=== PATIENT | female | born 1985 | race Caucasian/White ===

== ENCOUNTER 2024-10-27 20:31 | Emergency (ER) | payer OTHER, SELFPAY ==
[2024-10-27 20:35] VITALS: BP 130/70; PULSE 97; TEMP 36.6; O2SAT 98; BMI 34.5
--- NOTE | 2024-10-27 20:52 | CT_ITS ---
[address] [address] Patient Name: MAKSIM MARY MRN: [id number] date: 1985 Sex: F Assigned Patient Location: ER Current Patient Location: ER Accession/Order Number: [id number] Exam Date: 10/27/2024 21:50 Report Date: 10/27/2024 23:00 At the request of: ZENON PAYNE Procedure: CT abdomen pelvis wo con EXAMINATION:CT abdomen pelvis wo con INDICATION:left sided abd pain, left flank pain COMPARISON:None TECHNIQUE:Multiple thin section transaxial slices were acquired through the abdomen and pelvis without intravenous contrast. Coronal and sagittal reconstructed images were reviewed. Oral contrastWas not administered. FINDINGS: LOWER CHEST: The lower chest is unremarkable. LIVER: There is diffuse hepatic steatosis. GALLBLADDER AND BILIARY SYSTEM: No obvious ductal dilation. There is cholelithiasis. SPLEEN: The spleen is unremarkable. PANCREAS: The pancreas is unremarkable. ADRENAL GLANDS: The adrenal glands are unremarkable. KIDNEYS AND URETERS: There is a 2 mm sized proximal to mid left ureteral calculus. Despite the presence of this calculus, there is no hydronephrosis of the left kidney. There is no right hydronephrosis. The right ureter is within normal limits without obstructing urologic calcifications. VASCULATURE: Vascularity is unremarkable. PERITONEUM/RETROPERITONEUM: Peritoneum/retroperitoneum is unremarkable. LYMPH NODES: No suspicious lymphadenopathy. GASTROINTESTINAL TRACT: The bowel is normal in caliber.No acute inflammatory changes are present in the bowel.The appendix is visualized and is not inflamed. BLADDER: The urinary bladder is unremarkable. REPRODUCTIVE SYSTEM: The uterus is absent. BODY WALL: There is a moderate to large fat-containing ventral hernia. The hernia measures 10.2 x 5.5 cm in the anterior abdominal wall. BONES: Osseous structures are unremarkable. CT/CT abdomen pelvis wo con IMPRESSION: 1. 2 mm size calculus in the proximal to mid left ureter. Despite the presence of this calculus, there is no hydronephrosis of the left kidney. 2. Moderate to large fat-containing ventral hernia. Electronically authenticated by: SINTIA MOREJON Date: 10/27/2024 23:00
--- NOTE | 2024-10-27 20:58 | ED.GENADUL1 ---
HPI HPI - General Adult General Chief complaint: Back Pain/Injury Stated complaint: LEFT SIDE BACK PAIN, RADIATING TO ABDOMIN Time Seen by Provider: 10/27/24 20:34 Source: patient Mode of arrival: walk-in Limitations: no limitations History of Present Illness HPI narrative: Yesterday the patient suddenly developed left flank pain while sitting and eating. The pain radiates around to the left upper and left lower abdomen - upper > lower. No bowel or bladder symptoms - able to urinate without blood in urine and it does not affect the pain. Passing stool normally. She said that the pain waxes and wanes going from 10/10 about 2 hours ago to 2/10 now. She took Tums, tylenol and motrin plus used a hot pad. No nausea or vomiting. Hx of GERD but this doesn't feel anything like it. Denies any hx of kidney stones. Has a ventral hernia by hx - no repair. No fever or chills. Related Data Home Medications ?Medication ?Instructions ?Recorded ?Confirmed levothyroxine 150 mcg tablet 150 mcg PO DAILY 10/27/24 10/27/24 Previous Rx's ?Medication ?Instructions ?Recorded ciprofloxacin HCl 500 mg tablet 500 mg PO BID #10 tabs 10/27/24 (Cipro) ketorolac 10 mg tablet 10 mg PO Q8H 5 days #15 tabs 10/27/24 tamsulosin 0.4 mg capsule (Flomax) 0.4 mg PO DAILY #20 caps 10/27/24 Allergies Allergy/AdvReac Type Severity Reaction Status Date / Time amoxicillin Allergy Rash Verified 10/27/24 20:39 cefaclor (From Ceclor) Allergy Rash Verified 10/27/24 20:39 Opioid HPI Opioid Management Most Recent Opioid Data: Last Pain Scale 7 10/27/24 21:26 10/27/24 Last ED Pain Assessment 10/27/24 21:26 PFSH PFSH Social History Little interest or pleasure in doing things: not at all Feeling down, depressed, or hopeless: not at all Exam Narrative Exam Narrative: Nurses notes and vital signs reviewed and patient is not hypoxic. afebrile General: Well-appearing and in no apparent distress. Skin: Warm, dry, no pallor noted. No rash. Ears, Nose, Mouth, and Throat: Oral mucosa is moist Cardiovascular: Regular Rate and Rhythm without murmur, gallop or rub. Respiratory: No accessory muscle use or respiratory distress. Lungs are clear to auscultation, no wheezing, rales or rhonchi Back: No CVA tenderness Musculoskeletal: normal ROM GI: Abdomen is soft, non-distended. Normal bowel sounds. No masses appreciated. LUQ tenderness to palpation. No rebound, guarding, or rigidity noted. Neurological: A&O x4. No cranial nerve dysfunction observed. No truncal ataxia. Moves all extremities. Sensation intact. Psychiatric: Cooperative and interactive. Normal mood and affect. Constitutional Vital Signs, click to edit/add: Last Vital Signs Temp 97.8 F 10/27/24 20:35 Pulse 97 H 10/27/24 20:35 Resp 18 10/27/24 20:35 BP 130/70 10/27/24 20:35 Pulse Ox 98 10/27/24 20:35 O2 Del Method Room Air 10/27/24 20:35 Course Vital Signs Vital signs: Vital Signs Temperature 97.8 F 10/27/24 20:35 Pulse Rate 97 H 10/27/24 20:35 Respiratory Rate 18 10/27/24 20:35 Blood Pressure 130/70 10/27/24 20:35 Pulse Oximetry 98 10/27/24 20:35 Oxygen Delivery Method Room Air 10/27/24 20:35 Temperature 97.8 F 10/27/24 20:35 Pulse Rate 97 H 10/27/24 20:35 Respiratory Rate 18 10/27/24 20:35 Blood Pressure 130/70 10/27/24 20:35 Pulse Oximetry 98 10/27/24 20:35 Oxygen Delivery Method Room Air 10/27/24 20:35 Medical Decision Making MDM Narrative Medical decision making narrative: Labs and urine sent for testing. Pt had hysterectomy, so no need for preg test. Results -the patient found to have a 2 mm left proximal to mid ureteral stone. There is no hydronephrosis. She does have blood in her urine but no other sign of infection. However white blood cell count is slightly elevated. Kidney function is normal. She was informed of results and discharged home with prescription for oral Toradol, flomax and a prescription for ciprofloxacin with first dose of Cipro being given tonight in the ED. She will be given urological referral and instructions to return to the ED if she worsens. She was given a strainer at discharge and instructed on collection of the stone Lab Data Lab results reviewed: Yes I reviewed the patient's lab results Labs: Lab Results 10/27/24 10/27/24 Range/Units 21:00 21:20 WBC 14.4 H (4.0-11.0) 10^3/uL RBC 4.32 (4.20-5.40) 10^6/uL Hgb 13.2 (12.0-16.0) g/dL Hct 39.4 (36.0-48.0) % MCV 91.2 (81.0-99.0) fL MCH 30.6 (26.7-34.0) pg MCHC 33.5 (29.9-35.2) g/dL RDW 13.1 (11.0-15.0) % Plt Count 307 (150-450) 10^3/uL MPV 10.4 (9.5-13.5) fL Neut % (Auto) 74.2 (43.0-75.0) % Lymph % (Auto) 14.9 L (20.5-60.0) % Cheyenne % (Auto) 8.1 (1.7-12.0) % Eos % (Auto) 1.9 (0.9-7.0) % Baso % (Auto) 0.3 (0.2-2.0) % Neut # (Auto) 10.6 H (1.4-6.5) 10^3/uL Lymph # (Auto) 2.1 (1.2-3.8) 10^3/uL [place] # (Auto) 1.2 H (0.3-0.8) 10^3/uL Eos # (Auto) 0.3 (0.0-0.7) 10^3/uL Baso # (Auto) 0.1 (0.0-0.1) 10^3/uL Abs Immat Gran (auto) 0.09 H (0.00-0.03) 10^3/uL Imm/Tot Granulo (auto) 0.6 H (0.0-0.5) % Sodium 142 (136-145) mmol/L Potassium 3.5 (3.5-5.1) mmol/L Chloride 107 (98-107) mmol/L Carbon Dioxide 27.5 (21.0-32.0) mmol/L Anion Gap 11.0 BUN 11.0 (7.0-18.0) mg/dL Creatinine 0.82 (0.55-1.02) mg/dL Est GFR ( Amer) >60 (>=60 mL/min/1.73m^2) Est GFR (Non-Af Amer) >60 (>=60 mL/min/1.73m^2) BUN/Creatinine Ratio 13.4 Glucose 109 H (74-106) mg/dL Calcium 8.6 (8.5-10.1) mg/dL Total Bilirubin 0.4 (0.2-1.0) mg/dL AST 13 L (15-37) U/L ALT 29 (14-59) U/L Alkaline Phosphatase 97 (46-116) U/L Total Protein 6.7 (6.4-8.2) g/dL Albumin 3.1 L (3.4-5.0) g/dL Globulin 3.6 g/dL Albumin/Globulin Ratio 0.9 Urine Color Yellow (YELLOW) Urine Clarity Clear (CLEAR) Urine pH 6.5 (5.0-9.0) Ur Specific Hunter 1.025 (1.005-1.025) Urine Protein Trace (NEG/TRACE) mg/dL Urine Glucose (UA) Negative (NEGATIVE) mg/dL Urine Ketones Trace A (NEGATIVE) mg/dL Urine Occult Blood Large A (NEGATIVE) Urine Nitrite Negative (NEGATIVE) Urine Bilirubin Negative (NEGATIVE) Urine Urobilinogen 1.0 (0.2-1.0) EU/dL Ur Leukocyte Esterase Negative (NEGATIVE) Urine RBC >100 A (0-2) #/HPF Urine WBC 0-2 A (NONE SEEN) #/HPF Ur Squamous Epith Cells Few A (NONE/RARE) #/LPF Urine Crystals None seen (None Seen) #/HPF Urine Bacteria Small A (NONE SEEN) #/HPF Urine Casts None seen (NONE SEEN) #/LPF Urine Mucus Small A (NONE SEEN) Ur Culture Indicated? Yes Urine HCG, Qual Negative (NEGATIVE) Imaging Data CT scan - abdomen: Radiologist's impression: ITS Impressions Abdomen/Pelvis CT 10/27/24 20:52 IMPRESSION: 1. 2 mm size calculus in the proximal to mid left ureter. Despite the presence of this calculus, there is no hydronephrosis of the left kidney. 2. Moderate to large fat-containing ventral hernia. Electronically authenticated by: SINTIA MOREJON Date: 10/27/2024 23:00 Discharge Plan Discharge Chief Complaint: Back Pain/Injury Clinical Impression: Left ureteral stone, Hematuria, Leukocytosis Patient Disposition: Home, Self-Care Time of Disposition Decision: 23:29 Prescriptions / Home Meds: New tamsulosin [Flomax] 0.4 mg capsule 0.4 mg PO DAILY Qty: 20 0RF ciprofloxacin HCl [Cipro] 500 mg tablet 500 mg PO BID Qty: 10 0RF ketorolac 10 mg tablet 10 mg PO Q8H 5 Days Qty: 15 0RF No Action levothyroxine 150 mcg tablet 150 mcg PO DAILY Print Language: Serbian Instructions: Hematuria (ED), Leukocytosis (ED), Ureteral Stones (ED) Referrals: Zulema Chacko MD [Physician] - 1 week
[2024-10-27 21:44] LABS: Basophils Absolute Auto 0.1 10^3/uL (0.0-0.1); Basophils Percent Auto 0.3 % (0.2-2.0); Eosinophils Absolute Auto 0.3 10^3/uL (0.0-0.7); Eosinophils Percent Auto 1.9 % (0.9-7.0); Hematocrit 39.4 % (36.0-48.0); Hemoglobin 13.2 g/dL (12.0-16.0); Immature Granulocytes Abs Auto 0.09 10^3/uL (0.00-0.03); Immature Granulocytes Pct Auto 0.6 % (0.0-0.5); Lymphocytes Absolute Auto 2.1 10^3/uL (1.2-3.8); Lymphocytes Percent Auto 14.9 % (20.5-60.0); Mean Corpuscular HGB Conc 33.5 g/dL (29.9-35.2); Mean Corpuscular Hemoglobin 30.6 pg (26.7-34.0); Mean Corpuscular Volume 91.2 fL (81.0-99.0); Mean Platelet Volume 10.4 fL (9.5-13.5); Monocytes Absolute Auto 1.2 10^3/uL (0.3-0.8); Monocytes Percent Auto 8.1 % (1.7-12.0); Neutrophils Absolute Auto 10.6 10^3/uL (1.4-6.5); Neutrophils Percent Auto 74.2 % (43.0-75.0); Platelet Count 307 10^3/uL (150-450); Red Blood Count 4.32 10^6/uL (4.20-5.40); Red Cell Distribution Width 13.1 % (11.0-15.0); White Blood Count 14.4 10^3/uL (4.0-11.0)
[2024-10-27 21:45] LABS: Bilirubin Urine NEGATIVE (NEGATIVE); Blood Urine LARGE (NEGATIVE); Color Urine YELLOW (YELLOW); Glucose Urine UA NEGATIVE (NEGATIVE); Ketones Urine TRACE mg/dL (NEGATIVE); Leukocyte Esterase Urine NEGATIVE (NEGATIVE); Nitrite Urine NEGATIVE (NEGATIVE); Protein Urine TRACE mg/dL (NEG/TRACE); Specific Gravity Urine 1.025 (1.005-1.025); pH Urine 6.5 (5.0-9.0)
[2024-10-27 21:51] LABS: HCG Qualitative Urine* NEGATIVE (NEGATIVE); Internal Control Within Normal Limits; Urine Microscopic Indicated YES
[2024-10-27 21:56] LABS: Bacteria Urine SMALL #/HPF (NONE SEEN); RBC Urine >100 #/HPF (0-2); WBC Urine 0-2 #/HPF (NONE SEEN)
[2024-10-27 21:57] LABS: Cast Seen? NONE SEEN #/LPF (NONE SEEN); Crystals Seen? None Seen #/HPF (None Seen); Urine Culture Indicated YES
[2024-10-27 21:58] LABS: Clarity Urine CLEAR (CLEAR)
[2024-10-27 21:58] LABS: Alanine Aminotransferase 29 U/L (14-59); Albumin Globulin Ratio 0.9; Albumin Level 3.1 g/dL (3.4-5.0); Alkaline Phosphatase 97 U/L (46-116); Aspartate Amino Transferase 13 U/L (15-37); BUN Creatinine Ratio 13.4; Bilirubin Total 0.4 mg/dL (0.2-1.0); Calcium 8.6 mg/dL (8.5-10.1); Carbon Dioxide 27.5 mmol/L (21.0-32.0); Chloride 107 mmol/L (98-107); Estimated GFR (African America >60 (>=60 mL/min/1.73m^2); Estimated GFR (Non-African Ame >60 (>=60 mL/min/1.73m^2); Globulin 3.6 g/dL; Glucose 109 mg/dL (74-106); Potassium 3.5 mmol/L (3.5-5.1); Sodium 142 mmol/L (136-145); Total Protein 6.7 g/dL (6.4-8.2)
[2024-10-27 21:59] LABS: Mucus Urine SMALL (NONE SEEN); Squamous Epithelial Cell Urine FEW #/LPF (NONE/RARE)
[2024-10-27] MEDS: CIPROFLOXACIN HCL 500 MG TABLET PO (23:37)
[2024-10-27 23:41] VITALS: BP 109/79; PULSE 87; O2SAT 98
== END 2024-10-27 23:43 | disposition home or self-care (01) ==
PROVIDERS: Emergency Provider Emergency Medicine; PCP Nurse Practitioner Family
DX: N20.1 Calculus of ureter (principal); R31.9 Hematuria, unspecified; K43.9 Ventral hernia without obstruction or gangrene; K21.9 Gastro-esophageal reflux disease without esophagitis; Z90.710 Acquired absence of both cervix and uterus; D72.829 Elevated white blood cell count, unspecified
CPT/HCPCS: 36415; 74176; 80053; 81001; 84703; 85025; 87086; 99284

== ENCOUNTER 2025-10-23 15:39 | Outpatient (REF) | payer OTHER, SELFPAY ==
--- OUTSIDE RECORDS SUMMARY | 2025-03-14 10:50 | XMS_ITS ---
Author Organization [facility] es Address [address] [place] [address] Care Team Providers Care District Adviser Name Role Phone Placido Teran Primary Care Provider [phone] REASON FOR VISIT NEW PT EXAM Encounters Encounter Location Date Provider Diagnosis [address] [place] [address] [place] [address] 03/14/2025 Placido Teran Plan Of Treatment No Information Progress Notes * MAKSIM MARYDOB:1985 (40 yo F)Acc No.[id number]:03/14/2025 Patient:?MAKSIM MARY :?Placido Teran DDSDOB:1985???Age:39 Y ???Sex:FemaleDate:03/14/2025Phone:[phone]:[address] [id number] Subjective: * Chief Complaints: * N EW PT EXAM * Electronic signature of Placido Teran DDS on 10/23/2025 at 09:53 AM ESTSign off status: Pending * Provider: Yvette Teran DDS Date: 0 03/14/2025 Generated for Printing/Faxing/eTransmitting on:?10/23/2025 09:53 AM EST
--- OUTSIDE RECORDS SUMMARY | 2025-10-23 10:00 | XMS_ITS | Encounter Summary ---
Author Organization [facility] Address [address] [place] [address] Care Team Providers Care Carpenters Name Role Phone Unavailable Primary Care Provider Unavailabl e Reason for Visit * ReasonCommentsGynecologic Exam Encounter Details DateTypeDepartmentCare Team (Latest Contact Info)Vwjndkzxbpi34/25/2025 10:00 AM ESTOffice Visit [facility] [address] [address] Joseph Gamino DO [address] [place] [id number] Well woman exam with routine gynecological exam; Encounter for screening mammogram for malignant neoplasm of breast; Hot flashes; Night sweats; Skin yeast infection; Insulin resistance Social History Tobacco UseTypesPacks/DayYears UsedDateSmoking Tobacco: Never Assessed CommentsNoSex and Gender InformationValueDate RecordedSex Assigned at Bhbaab5904/20/2023 8:53 AM EDTLegal YxrZcftdl41/15/2023 7:24 PM EDTGender Identity Wudzzo5204/20/2023 8:53 AM EDTSexual XbxwronzhzlYpcdtlsj47/23/2023 8:53 AM EDT documented as of this encounter Last Filed Vital Signs Vital SignReadingTime TakenCommentsBlood Nagjjcye645/6810/23/2025 10:09 AM EST Pulse--Temperature--Respiratory Rate--Oxygen Saturation--Inhaled Oxygen Concentration--Pdcfsb093 kg (232 lb)10/23/2025 10:09 AM NPHWouyti749.2 cm (5' 7 )10/23/2025 10:09 AM ESTBody Mass Index36.34112/23/2024 10:09 AM ESTdocumented in this encounter Progress Notes * Lucrecia Hoffmann, GRADES 9 12 TUTOR - 10/23/2025 10:00 AM EST Reason for Appointment: Patient ID: Dayanna Figueroa is a 40 y.o. female who presents for Gynecologic Exam Patient presents today for Annual Exam. MEDICATIONS Current Outpatient Medications Medication Instructions calcium carbonate (Tums) 500 MG chewable tablet IBU 400 MG tablet Every 8 hours levothyroxine (Synthroid, Levoxyl) 125 MCG tablet 1 tablet, Oral, Daily levothyroxine (Synthroid, Levoxyl) 137 MCG tablet ondansetron (ZOFRAN) 4 mg, Oral, 2 times daily PRN ALLERGIES Allergies Allergen Reactions Amoxicillin Cefaclor PROBLEMS Active Ambulatory Problems Diagnosis Date Noted Abnormal uterine bleeding (AUB) 04/20/2023 Menorrhagia with irregular cycle 04/20/2023 Bloating symptom 04/20/2023 Dyspareunia in female 04/20/2023 Dysmenorrhea 04/20/2023 S/P hysterectomy 04/20/2023 Resolved Ambulatory Problems Diagnosis Date Noted No Resolved Ambulatory Problems No Additional Past Medical History HISTORY PAST MEDICAL HISTORY SOCIAL HISTORY Past Medical History: Diagnosis Date Abnormal uterine bleeding (AUB) Bloating symptom Dysmenorrhea Dyspareunia in female Menorrhagia with irregular cycle S/P hysterectomy Social History Tobacco Use Smoking status: Not on file Smokeless tobacco: Not on file Substance Use Topics Alcohol use: Not on file Drug use: Not on file FAMILY HISTORY No family history on file. SURGICAL HISTORY Past Surgical History: Procedure Laterality Date DILATION AND CURETTAGE OF UTERUS multiple ROBOTIC ASSISTED HYSTERECTOMY Bilateral 03/05/2023 THYROIDECTOMY 11/03/2019 TONSILLECTOMY 2016 REVIEW OF SYSTEMS Review of Systems: Review of Systems Constitutional: Positive for night sweats and hot flashes. HENT: Negative. Eyes: Negative. Respiratory: Negative. Cardiovascular: Negative. Gastrointestinal: Negative. Genitourinary: Negative. Musculoskeletal: Negative. Skin: Negative. Neurological: Negative. All other systems reviewed and are negative. Hematological: Negative. Allergic/Immunologic: Negative. OBJECTIVE Objective: Physical Exam Constitutional: Appearance: Normal appearance. She is well-developed. Genitourinary: Vulva normal. Vaginal cuff intact. Cervix is absent. Uterus is absent. Breasts: Breasts are soft. Right: Normal. Left: Normal. Cardiovascular: Rate and Rhythm: Normal rate and regular rhythm. Abdominal: General: Bowel sounds are normal. There is no distension. Palpations: Abdomen is soft. Tenderness: There is no abdominal tenderness. There is no guarding or rebound. Musculoskeletal: General: No swelling. Normal range of motion. Right lower leg: No edema. Left lower leg: No edema. Neurological: Mental Status: She is alert and oriented to person, place, and time. Skin: General: Skin is warm and dry. Psychiatric: Mood and Affect: Mood normal. Behavior: Behavior normal. Vitals and nursing note reviewed. Exam conducted with a ampoule filler and sealer present. Vitals: Estimated body mass index is 36.34 kg/m?? as calculated from the following: Height as of 04/20/23: 5' 7 . Weight as of this encounter: 232 lb. BP: 116/68 No LMP recorded. Patient has had a hysterectomy. ASSESSMENT & PLAN ICD-10-CM 1. Well woman exam with routine gynecological exam Z01.419 THIN PREP TIS PAP AND HR HPV DNA 2. Encounter for screening mammogram for malignant neoplasm of breast Z12.31 Bilateral screening mammogram Bilateral screening mammogram 3. Hot flashes R23.2 4. Night sweats R61 Orders Placed This Encounter Procedures Bilateral screening mammogram Annual Wellness Exam (Post Hysterectomy): Patient presents today for routine annual exam. Patient states she has complaints of hot flashes and night sweats. Pt had hysterectomy. Discussed adding hormones. Pt is not taking any hormones at this time. Rx for climara patch and prometrium faxed to pharmacy, pt to return in 6 weeks for follow up with medication . Patients vitals were reviewed and within normal limits. Growth and development is noted to be appropriate for age. Menstrual history is noted to be obsolete due to patients history of hysterectomy. No mental health concerns was expressed. Pap Smear: Speculum was inserted into the vagina and pap was obtained without difficulty. HPV testing was performed per guidelines. Patient was advised that pap results could take anywhere from 7 to 10 days to receive and our office will reach out to the patient with those once we have them. Patient can also view results via [employer] I reinforced importance of condom use for STI prevention. Patient declined cultures to be performed with today's visit. Breast Exam: Upon examination, clinical breast exam was noted to be normal. Patient was counseled on breast self-awareness, including the importance of knowing what is normal for her own breasts and promptly reporting any changes such as new lumps, skin dimpling, nipple discharge, or pain. Screening mammogram recommended annually beginning at age 40 or earlier if risk factors are present. Discussed signs and symptoms of breast cancer and when to seek medical attention. Answered all patient questions. Follow Up: Patient is to return to our office in one year for annual exam unless needed otherwise. Documented by Lucrecia Hoffmann LPN on behalf of: Joseph Gamino DO documented in this encounter Plan of Treatment DateTypeDepartmentCare Team (Latest Contact Info)Mvpauuprwhy10/12/2026 11:20 AM ESTOffice Visit [facility]TE [facility] [address] [place] [address] [place] [address] Joseph Gamino DO [address] [place] [address] 10/30/2026 2:00 PM ESTProcedure Visit [facility]ETTE [facility] [address] [place] [address] [place] [address] Joseph Gamino DO [address] [place] [address] NameTypePriorityAssociated DiagnosesOrder ScheduleBilateral screening mammogram ImagingRoutine Encounter for screening mammogram for malignant neoplasm of breast Expected: 10/23/2025 (Approximate), Expires: 12/23/2026THIN PREP TIS PAP AND HR HPV DNAPathology and CytologyRoutine Well woman exam with routine gynecological exam Ordered: 10/23/2025documented as of this encounter Visit Diagnoses Diagnosis Well woman exam with routine gynecological exam Routine gynecological examination Encounter for screening mammogram for malignant neoplasm of breast Hot flashes Night sweats Generalized hyperhidrosis Skin yeast infection Candidiasis of skin and nails Insulin resistance Other abnormal glucose documented in this encounter
--- OUTSIDE RECORDS SUMMARY | 2025-10-23 15:44 | XMS_ITS | Patient Health Record ---
Author Organization [facility] es Address [address] [place] [address] Care Team Providers Care Information Systems Security Analyst Name Role Phone Placido Teran Primary Care Provider [phone] Reason For Referral No Information Plan Of Treatment No Information
--- OUTSIDE RECORDS SUMMARY | 2025-10-23 15:44 | XMS_ITS | Clinical Summary ---
Author Organization [facility] Address [address] [place] [address] Care Team Providers Care Agricultural Mechanic Name Role Phone Unavailable Primary Care Provider Unavailabl e Allergies Active AllergyReactionsCriticalityNoted CyylXnpytkoiMtlenqgdfee34/22/2023 Wjhjtxlh70/22/2023 Medications MedicationSigDispense QuantityRefillsLast FilledStart DateEnd DateStatus calcium carbonate (Tums) 500 MG chewable tablet Active IBU 400 MG tablet every 8 (eight) hours.Active levothyroxine (Synthroid, Levoxyl) 125 MCG tablet Take 1 tablet by mouth in the morning.04/21/2021ctive levothyroxine (Synthroid, Levoxyl) 137 MCG tablet 01/01/2023ctive ondansetron (Zofran) 4 MG tablet Take 4 mg by mouth 2 (two) times a day as needed.Active estradiol (Climara) 0.05 MG/24HR Indications:Hot flashes,Night sweatsPlace 1 patch over 7 days on the skin 1 (one) time per week 12 patch ctive progesterone (Prometrium) 100 MG capsule Indications:Hot flashes,Night sweatsTake 1 capsule (100 mg) by mouth Daily 30 capsule ctive nystatin (Mycostatin) 256873 UNIT/GM powder Indications:Skin yeast infectionApply topically in the morning and in the evening and before bedtime. 15 g ctive metFORMIN XR (Glucophage-XR) 500 MG 24 hr tablet Indications:Insulin resistanceTake 1 tablet (500 mg) by mouth in the evening. Take with meals Do not crush, chew, or split. 30 tablet ctive Active Problems ProblemNoted DateDiagnosed DateAbnormal uterine bleeding (AUB)04/20/2023 Menorrhagia with irregular cycle04/20/2023loating sxxbezv9904/20/2023yspareunia in dftfdt3004/20/20239071Mdymbcmcibxi82/23/2023S/P ykkquvyaraxk25/23/2023 Encounters DateTypeDepartmentCare FpauJeehhjlvuny21/25/2025 10:00 AM ESTOffice Visit [facility] [address] [facility] [address] Joseph Gamino DO Well woman exam with routine gynecological exam; Encounter for screening mammogram for malignant neoplasm of breast; Hot flashes; Night sweats; Skin yeast infection; Insulin qzavxcfzqn91/25/2025amboo flowsheet [facility] [address] [facility] [address] Joseph Gamino DO from Last 3 Months Social History Tobacco UseTypesPacks/DayYears UsedDateSmoking Tobacco: Never Assessed CommentsNoSex and Gender InformationValueDate RecordedSex Assigned at Zbbtkb5804/20/2023 8:53 AM EDTLegal ZxcQgoyto01/15/2023 7:24 PM EDTGender Identity Csykvj5604/20/2023 8:53 AM EDTSexual DkwnsprplkwSkikqfbp20/23/2023 8:53 AM EDT Last Filed Vital Signs Vital SignReadingTime TakenCommentsBlood Jeinwfma361/6810/23/2025 10:09 AM EST Pulse--Temperature--Respiratory Rate--Oxygen Saturation--Inhaled Oxygen Concentration--Yqzjbs571 kg (232 lb)10/23/2025 10:09 AM LZLJiyjbf191.2 cm (5' 7 )10/23/2025 10:09 AM ESTBody Mass Index36.34112/23/2024 10:09 AM EST Plan of Treatment DateTypeDepartmentCare Team (Latest Contact Info)Undkrqlqoxu79/12/2026 11:20 AM ESTOffice Visit [facility] [address] [place] [address] Joseph Gamino, DO [address] [place] [address] 10/30/2026 2:00 PM ESTProcedure Visit [facility] [address] [place] [address] Joseph Gamino, DO [address] [place] [address] Health MaintenanceDue DateLast DoneCommentsHPV/Mjudfw1706/12/2015Mammogram 2025OVID-19 Vaccine ( season)503/04/2022, 01/11/2022 Cervical Cancer Hvpjoayum90/01/2026Pap Smear/11/2022Influenza MovfekiXthtljrvd84/23/2025, 09/04/2024, 09/23/2023, Additional history exists Pneumococcal Vaccine: Pediatrics (0 to 5 Years) and At-Risk Patients (6 to 64 Years)Aged OutNo longer eligible based on patient's age to complete this topic Procedures Procedure NamePriorityDate/TimeAssociated DiagnosisCommentsPAP SMEARRoutine 12/30/2022 12:00 AM ESTfrom Last 3 Months or Most Recently Relevant to Health Maintenance Results * Pap Smear (12/30/2022 12:00 AM EST)Specimen (Source)Anatomical Location / LateralityCollection Method / VolumeCollection TimeReceived TimeSwabCervical swab / Unknown Narrative Authorizing ProviderResult TypeResult StatusHistorical Provider CNIDY CYTOLOGY ORDERABLESFinal ResultPerforming OrganizationAddressCity/State/ZIP CodePhone Number EXTERNAL LAB from Last 3 Months or Most Recently Relevant to Health Maintenance Insurance * Guarantor: Dayanna FigueroaAccodean TypeRelation to PatientDate of BirthPhone Billing AddressPersonal/ZzgkhkIoav1985 [place] [address]
--- OUTSIDE RECORDS SUMMARY | 2025-10-23 15:44 | XMS_ITS | Encounter Summary ---
Author Organization [facility] Address [address] [place] [address] Care Team Providers Care Barrel Tester Name Role Phone Unavailable Primary Care Provider Unavailabl e Encounter Details DateTypeDepartmentCare Team (Latest Contact Info)Ypfdcabtreq63/25/2025amboo flowsheet [facility] [address] [address] Joseph Gamino DO [address] [place], [place] [address] Social History Tobacco UseTypesPacks/DayYears UsedDateSmoking Tobacco: Never Assessed CommentsNoSex and Gender InformationValueDate RecordedSex Assigned at Vakqsy0404/20/2023 8:53 AM EDTLegal GwwYsqdxm56/15/2023 7:24 PM EDTGender Identity Ypcyyw7004/20/2023 8:53 AM EDTSexual XwsgtopjjynIlzafyxr64/23/2023 8:53 AM EDT documented as of this encounter Plan of Treatment DateTypeDepartmentCare Team (Latest Contact Info)Zomyisvyoup70/12/2026 11:20 AM ESTOffice Visit [facility] [address] [place] [address] Joseph Gamino, DO [address] [place], [place] [address] 10/30/2026 2:00 PM ESTProcedure Visit [facility] [address] [place] [id number] Joseph Gamino DO [address] [place] [address] documented as of this encounter Visit Diagnoses Not on filedocumented in this encounter
--- OUTSIDE RECORDS SUMMARY | 2025-10-23 15:44 | XMS_ITS | Clinical Summary ---
Author [facility] Address [address], [address] [place] [address] Care Team Providers Care Patient Safety Coordinator Name Role Phone Hunter Moreira Mio YEEN - SENIOR NETWORK SYSTEMS ENGINEER Primary Care Provider Allergies Active AllergyReactionsCriticalityNoted YjwnKgwasypxCzwfckuklybYgcpTbp81/27/2020 IbyptxjyEcfbHbz10/27/2020 Medications MedicationSigDispense QuantityRefillsLast FilledStart DateEnd DateStatus Etonogestrel (NEXPLANON SC) Inject into the skinActive Calcium Carbonate Antacid (TUMS PO) Take by mouthActive buPROPion (WELLBUTRIN XL) 150 MG extended release tablet Indications:DysthymiaTake 1 tablet by mouth every morning 90 tablet 11/07/2020Active Additional Information Patient not taking.Reported on 02/11/2021 levothyroxine (SYNTHROID) 125 MCG tablet Indications:Postoperative hypothyroidismTake 1 tablet by mouth Daily 90 tablet 1Active predniSONE (DELTASONE) 20 MG tablet 60 mg. Day 1-3 take 3 tablets daily by mouth. 40 mg. Day 4-5 take 2 tablets daily by mouth. 20 mg. Day 6-7 take 1 tablet daily by mouth. 15 tablet 11/17/2021ctive Active Problems No known active problems Immunizations ImmunizationAdministration DatesNext DueInfluenza Virus Qofvyyy3510/30/2021, 11/06/2020,11/02/2019 Family History Medical HistoryRelationNameCommentsCancerMaternal GrandfatherStrokeMaternal GrandfatherHigh Blood PressureMaternal GrandmotherHigh Blood PressureMother MigrainesMotherCancerPaternal GrandfatherHeart DiseasePaternal Grandfather DiabetesPaternal GrandmotherStrokePaternal GrandmotherRelationNameStatusComments FatherAliveMaternal GrandfatherMaternal GrandmotherMotherAlivePaternal GrandfatherPaternal Grandmother Social History Tobacco UseTypesPacks/DayYears UsedDateSmoking Tobacco: NeverSmokeless Tobacco: NeverAlcohol UseStandard Drinks/WeekCommentsNever0 (1 standard drink = 0.6 oz pure alcohol)AUDIT-CAnswerDate RecordedFrequency of Alcohol ConsumptionNever 04/24/2020Average Number of DrinksNot on file04/24/2020Frequency of Binge DrinkingNot on file04/24/2020Overall Financial Resource Strain (CARDIA)Answer Date RecordedHow hard is it for you to pay for the very basics like food, housing, medical care, and heating?Patient ebfgywvu98/06/2021PHQ-2AnswerDate RecordedPHQ-9 Total Dyngk477Hunger Vital SignAnswerDate RecordedWithin the past 12 months, you worried that your food would run out before you got the money to buymore.Patient woaewcjt73/06/2021Within the past 12 months, the food you bought just didn't last and you didn't have money to get more.Patient wxixvvta67/06/2021PRAPARE - TransportationAnswerDate RecordedIn the past 12 months, has lack of transportation kept you from medical appointments or from getting medications?No05/03/2020In the past 12 months, has lack of transportation kept you from meetings, work, or from getting things needed for daily living?No05/03/2020EducationAnswerDate RecordedWhat is the highest level of school you have completed or the highest degree you have received?Associate degree: occupational, technical, or vocational wrccpsl2505/03/2020Comments NoSex and Gender InformationValueDate RecordedSex Assigned at BirthNot on file Legal WahStpfak82/15/2020 12:56 PM ESTGender IdentityNot on fileSexual OrientationNot on fileOccupationIndustryJob Start DateJob End DateRNNot on file Not on fileNot on file Last Filed Vital Signs Vital SignReadingTime TakenCommentsBlood Ajgvabjh487/7811/17/2021 11:42 AM EST Cqowz05611/20/2021 11:42 AM JPELjdeyhljacc61.8 ??C (98.2 ??F)11/17/2021 11:42 AM ESTRespiratory Qakn035701/18/2021 11:42 AM ESTOxygen Txfswswtmb68%11/17/2021 11:42 AM ESTInhaled Oxygen Concentration--Xmmotx894.3 kg (221 lb 3.2 oz)11/17/2021 11:42 AM VZPUscurr364.9 cm (5' 6.5 )11/17/2021 11:42 AM ESTBody Mass Index35.17 11/17/2021 11:42 AM EST Plan of Treatment Not on file Insurance Care Teams Team MemberRelationshipSpecialtyStart DateEnd Date Might, Hunter Lieberman, ROOF PANEL HANGER - SENIOR NETWORK SYSTEMS ENGINEER [address] [place] [address] PCP - GeneralFamily Nurse Practitioner05/03/20
--- OUTSIDE RECORDS SUMMARY | 2025-10-23 15:44 | XMS_ITS | Clinical Summary ---
Author Organization [facility] Address [id number] [address] [place] [address] Care Team Providers Care Civil Engineering Designer Name Role Phone Seamus Anguiano MD Primary Care Provider [phone] Allergies Active AllergyReactionsCriticalityNoted EelsPydgyprnTvxsggdrsjc22/07/2017 Zpwenbsr05/07/2017 Medications MedicationSigDispense QuantityRefillsLast FilledStart DateEnd DateStatus VIT CALC,IRON,FOLIC ( VITAMIN ORAL) Take 1 tablet by mouth daily.Active ondansetron (ZOFRAN) 4 mg tablet Take 4 mg by mouth 2 (two) times a day as needed for nausea or vomiting.Active calcium carbonate (TUMS) 200 mg (500 mg) chewable tablet Chew 2 tablets and swallow 3 (three) times a day.Active Active Problems ProblemNoted DateDiagnosed DateEchogenic focus of heart of fetus affecting antepartum care of drdqfl1302/04/2017 Family History Medical HistoryRelationNameCommentsNo Known ProblemsBrotherNo Known Problems FatherHypertensionMotherNo Known ProblemsSisterRelationNameStatusCommentsBrother AliveFatherAliveMotherAliveSisterAlive Social History Tobacco UseTypesPacks/DayYears UsedDateSmoking Tobacco: NeverAlcohol UseStandard Drinks/WeekCommentsNo0 (1 standard drink = 0.6 oz pure alcohol)ChildcareAnswer Date IlwvlkknZtkcrbuwwKzouvgs07/12/2019EmploymentAnswerDate RecordedEmployment Rgkevnh6505/10/2019Purpose - LifeAnswerDate RecordedPurpose and direction in life Frtzwiv36/11/2021CommentsNoSex and Gender InformationValueDate Recorded Sex Assigned at BirthNot on fileLegal PvzQcmxev93/30/2015 7:28 AM EDTGender IdentityNot on fileSexual OrientationNot on file Last Filed Vital Signs Vital SignReadingTime TakenCommentsBlood Hcqxxssv162/6203 11:37 AM EST Lrxgg863602/04/2017 11:37 AM ESTTemperature--Respiratory Ddrr335902/04/2017 11:37 AM ESTOxygen Saturation--Inhaled Oxygen Concentration--Aarrxj75 kg (189 lb 9.5 oz) 02/04/2017 11:37 AM XFPBefyfk568.9 cm (5' 6.5 )02/04/2017 11:37 AM ESTBody Mass Index30.1403 11:37 AM EST Plan of Treatment Health MaintenanceDue DateLast DoneCommentsDepression Pkwoispim63/15/1997Tobacco Qqrmbbruc27/15/1997Adult BMI Shybvvcxv70/15/2003DTaP,Tdap and Td Vaccines (1 - Tdap)2004Pap Smear2006Influenza Rimyvgg9107/30/2025 Medical Devices Not on file Insurance Care Teams Team MemberRelationshipSpecialtyStart Seamus Anguiano MD PCP - [facility]02/04/17
--- OUTSIDE RECORDS SUMMARY | 2025-10-23 15:50 | XMS_ITS | CCD ---
Author Organization [facility] Care Team Providers Care Forms Examiner Name Role Phone SKY STROUD Referring Unavailable SKY STROUD Primary Care Unavailable Unavailable Primary Care Provider Maggie Braxton Primary Care Physician SUSAN, TONI Admitting Unavailable SUSAN, TONI Attending Unavailable SUSAN, TONI Consulting Unavailable SUSAN, TONI Admitting Unavailable SUSAN, TONI Attending Unavailable REQUEST, NONE LISTED Primary Care Unavaila ble SUSAN, TONI Consulting Unavailable SUSAN, TONI Admitting Unavailable SUSAN, TONI Attending Unavailable ARNULFO ., DR GOLDMAN Primary Care Unavailable SUSAN, TONI Consulting Unavailable SUSAN, TONI Admitting Unavailable SUSAN, TONI Attending Unavailable REQUEST, NONE LISTED Primary Care Unavaila ble SUSAN, TONI Consulting Unavailable SHARP, CIRA Consulting Unavailable NORM II, EMERY Consulting Unavailable Emery Hale Admitting Unavaila Emery Almanza Attending Unavaila Seamus Lindsey Primary Care Unavailable Zohreh Middleton Primary Care Physician [phone] ROSELIA CARLTON Attending Unavailable Zohreh Middleton Attending Unavailab le Zohreh Middleton Attending Unavailab le Zohreh Middleton Attending Unavailab ROSELIA Ignacio Attending Unavailable ROSELIA CARLTON Admitting Unavailable Zohreh Middleton Admitting Unavailab Zohreh James Attending Unavailab Zaid Weiss Attending Unavailable Zohreh Middleton Admitting Unavailab le lerZohreh Attending Unavailab le Emi, HAROON Edward Attending Sylvia vailable Missler, TAMPING MACHINE OPERATORAramis Edward Attending Sylvia vailable Missler, TAMPING MACHINE OPERATOR-Shyla Edward Admitting Sylvia vailable Missler, HAROON Edward Attending Sylvia vailable ler, TAMPING MACHINE OPERATOR-Shyla Edward Admitting Sylvia vailable SAMINA, Zaid Attending Unavailable SAMINA, Zaid Attending Unavailable Emi, HAROON Edward Attending Sylvia vailable Emi, KEVIN-Shyla Edward Admitting Sylvia vailable ROSELIA CARLTON Yvette Attending Unavailable Emi, HAROON Edward Attending Sylvia vailable Allergies Allergy ClassificationReported Allergen(s)Allergy TypeDate of OnsetReaction(s) Facility (19 sources)Amoxicillin; Translations: [amoxicillin]Drug AllergyEruption of skin (disorder)[facility] (19 sources)Cefaclor; Translations: [cefaclor]Drug AllergyEruption of skin (disorder)[facility] (1 source)AmoxicillinDrug Rblkouv65-35-7736[facility] (1 source)CefaclorDrug Vrejsas98-58-7332WqsSumma Health Repository (1 source)AmoxicillinDrug Bhbwmfl94-74-7440IrvimdlwhMartins [facility]erry Hospital [facility] (1 source)CefaclorDrug Onljogb47-34-3824VxjqmoecnMartins Ferry Hospital Repository Medications Current Medications MedicationDrug Class(es)DatesSig (Normalized)Sig (Original)Albuterol (Eqv-ProAir HFA) 90 mcg/inh inhalation aerosol (1 source)Start: 41-87-3948Glecvqluw (Eqv-ProAir HFA) 90 mcg/inh inhalation aerosol 180 mcg, 2 inh, Inhalation, q4hr, 18 gm, Refill(s) 0, [facility], [facility], cm, 10/11/24 7:04:00 EST, Height/Length Dosing, 101.1, kg, 10/11/24 7:04:00 EST, Weight Dosing Start Date: 10/11/24 Status: OrderedBudesonide 0.09 MG/ACTUAT Dry Powder Inhaler (2 sources)CorticosteroidStart: 45-76-8487gxvedgrxyz 90 mcg/inh inhalation powder 2 inh, Inhalation, BID, 1 EA, Refill(s) 1, [facility], 168, cm, 10/05/24 10:16:00 EST, Height/Length Dosing, 98.8, kg, 10/05/24 10:16:00 EST, Weight Dosing Start Date: 10/05/24 Status: OrderedCalcium Carbonate (16 sources)Start: 99-31-0616Psvw Refills(s) 0 Start Date: 08/12/22 Status: Ordered Repeat number: 1Start: 63-87-0114Mrbh Refills(s) 0 Start Date: 08/12/22 Status: Ordereddoxycycline hyclate 100 mg oral tablet (2 sources)Tetracycline-class DrugStart: 10-09-2024 End: 08-94-8850dwyt 1 tablet by mouth every twelve hoursdoxycycline hyclate 100 mg Tab 100 mg = 1 tab(s), Oral, q12hr, X 7 day(s), # 14 tab(s), Refills(s) 0, Pharmacy: [facility], 168, cm, 10/05/24 10:16:00 EST, Height/Length Dosing, 98.8, kg, 10/05/24 10:16:00 EST, Weight Dosing Start Date: 10/09/24 Stop Date: 10/16/24 Status: OrderedNexplanon (1 source)ProgestinStart: 69-61-0545Purhjoyhj Refills(s) 0 Start Date: 12/31/22 Status: Orderedfluconazole 200 mg oral tablet (3 sources)Azole AntifungalStart: 11-03-2023 End: 07-82-9667ftwm 1 tablet by mouth once dailyfluconazole 200 mg Tab 200 mg = 1 tab(s), Oral, Daily, X 7 day(s), # 7 tab(s), Refills(s) 0, Pharmacy: [facility], 168, cm, 11/03/23 13:56:00 EST, Height/Length Dosing, 99.4,kg, 11/03/23 13:56:00 EST, Weight Dosing Start Date: 11/03/23 Stop Date: 12/13/23 Status: OrderedPrevacid (16 sources)Proton Pump InhibitorStart: 62-41-7318Hpscywuf Refills(s) 0 Start Date: 08/12/22 Status: Ordered Repeat number: 1Start: 61-42-0794Ezuydhnt Refills(s) 0 Start Date: 08/12/22 Status: Orderedlevothyroxine sodium 0.15 mg oral tablet (16 sources)l-ThyroxineStart: 42-84-8055byah 1 tablet by mouth once daily levothyroxine 150 mcg (0.15 mg) Tab 150 mcg = 1 tab(s), Oral, Daily, # 90 tab(s), Refills(s) 1, Pharmacy: [facility], 168, cm, 04/25/25 14:53:00 EDT, Height/Length Dosing, 101.3, kg, 04/25/25 14:53:00 EDT, Weight Dosing Start Date: 04/25/25 Status: Ordered Quantity: 90.0 Unit: tab(s) Repeat number: 2Start: 09-11-2024 End: 82-54-0728dyab 1 tablet by mouth once dailylevothyroxine 150 mcg (0.15 mg) Tab 150 mcg = 1 tab(s), Oral, Daily, # 90 tab(s), Refills(s) 1, Pharmacy: [facility], 168, cm, 10/11/24 7:04:00 EST, Height/Length Dosing, 101.1, kg, 10/11/24 7:04:00 EST, Weight Dosing Start Date: 10/11/24 Status: OrderedStart: 41-13-2354dvys 1 tablet by mouth once dailylevothyroxine 150 mcg (0.15 mg) Tab 150 mcg = 1 tab(s), Oral, Daily, # 90 tab(s), Refills(s) 1, Pharmacy: [facility], 168, cm, 02/09/24 7:22:00 EDT, Height/Length Dosing, 100.6, kg, 02/09/24 7:22:00 EDT, Weight Dosing Start Date: 02/09/24 Status: OrderedStart: 74-57-0795kdga 1 tablet by mouth once daily levothyroxine 137 mcg (0.137 mg) Tab 137 mcg = 1 tab(s), Oral, Daily, on an empty stomach, # 90 tab(s), Refills(s) 3, Pharmacy: [facility], 168, cm, 12/31/22 14:49:00 EST, Height/Length Dosing, 104.1, kg, 12/31/22 14:49:00 EST, Weight Dosing Start Date: 12/31/22 Status: OrderedStart: 09-08-2022 End: 84-43-2648cwbumoopsvgmb 125 mcg (0.125 mg) Tab 125 mcg = 1 tab(s), Oral, Daily, take on an empty stomach from other food/meds/vitamins by 60 minutes., X 30 day(s), # 30 tab(s), Refills(s) 5, Pharmacy: [facility], 168, cm, 08/12/22 15:09:00 EDT, Height/Length Dosi... Start Da te: 09/08/22 Stop Date: 03/07/23 Status: OrderedStart: 12-61-3557tugd 1 tablet by mouth once dailylevothyroxine 125 mcg (0.125 mg) Tab 125 mcg = 1 tab(s), Oral, Daily, Refills(s) 0 Start Date: 08/12/22 Status: Ordered Completed/Discontinued Medications MedicationDrug Class(es)DatesSig (Normalized)Sig (Original)predniSONE 10 mg oral tablet (4 sources)Start: 91-90-9858yzjxrpDAXQ 10 mg Tab 10 mg = 1 tab(s), Oral, As Directed, Take 4 tabs for 3 days, 3 tabs for 3 days, 2 tabs for 3 days, 1 tab for 3 days., # 30 tab(s), Refills(s) 0, Pharmacy: [facility], 168, cm, 11/03/23 13:56:00 EST, Height/Length Dosing, 99.4, kg, 11/03/23 13:56:00 EST,Weight Dosing Start Date: 11/03/23 Status: Ordered Problems Problem ClassificationProblemDateDocumented DateEpisodic/ChronicAbdominal hernia (13 sources)Umbilical yfwfej38-17-0007NdajidpnOkijxxrptc disorders (18 sources)Gastroesophageal reflux disease without esophagitis; Translations: [Gastro-esophageal reflux disease without esophagitis]Onset: 68-09-1230Cgiczyn Immunizations and screening for infectious disease (1 source)Encounter for screening for human papillomavirus (HPV); Translations: [ENC SCREENING HUMAN PAPILLOMAVIRUS]Onset: 37-52-4990AwaohaatMdbqyjnbl disorders (2 sources)Excessive and frequent menstruation with irregular cycle; Translations: [Dysmenorrhea, unspecified]Onset: 83-56-3647VzzccugOnvhpqj (9 sources)Candidiasis of mouth; Translations: [Candidal stomatitis]Onset: 96-94-6779GuxmnxutGublpnwuwvv chest pain (4 sources)Chest pain; Translations: [Other chest pain]Onset: 39-68-3039Txqtlepj Other female genital disorders (1 source)Unspecified dyspareunia; Translations: [UNSPECIFIED DYSPAREUNIA]Onset: 40-31-7181EddnjiqFcljv female genital disorders (5 sources)Abnormal uterine and vaginal bleeding, unspecified; Translations: [ABNORMAL UTERINE VAGINAL BLEED UNS]Onset: 52-08-7668JokoymtJuzys female genital disorders (1 source)Other specified noninflammatory disorders of cervix uteri; Translations: [OTH SPEC NONINFLAMM D/O CERV UTERI]Onset: 56-72-8449GouicrhfDxohi lower respiratory disease (1 source)Cough; Translations: [Cough, unspecified]Onset: 43-07-1821Lyottimv Other non-traumatic joint disorders (1 source)Joint derangement; Translations: [Other specific joint derangements of unspecified joint, not elsewhere classified]Onset: 98-91-0193TnkjauvBmafd non- traumatic joint disorders (12 sources)Joint woajkkux53-08-8176AtoccqtCylvi nutritional; endocrine; and metabolic disorders (7 sources)Obese class II; Translations: [Body mass index (BMI) 35.0-35.9, adult]Onset: 97-16-6855QhqqqokKyavs nutritional; endocrine; and metabolic disorders (20 sources)Obesity; Translations: [Obesity, unspecified]Onset: 08-12-2022 ChronicOther nutritional; endocrine; and metabolic disorders (11 sources)Body mass index 30+ - kkisvbt24-22-2814KvjvudhFeblu nutritional; endocrine; and metabolic disorders (1 source)Obesity, unspecified; Translations: [OBESITY UNSPECIFIED]Onset: 97-13-7096VaotwbjMfkdj nutritional; endocrine; and metabolic disorders (1 source)Body mass index (BMI) 34.0-34.9, adult; Translations: [BODY MASS INDEX BMI 34.0-34.9 ADULT]Onset: 69-09-5925QaedtroHwbty screening for suspected conditions (not mental disorders or infectious disease) (4 sources)Encounter for screening for malignant neoplasm of cervix; Translations: [ENC SCREENING MALIG NEOPLASM CERV]Onset: 28-28-3957VcsjltdfGuedm skin disorders (2 sources)Skin bio04-92-6579VkwmqfbtQcpha skin disorders (1 source)Hypertrophic condition of skin; Translations: [Other hypertrophic disorders of the skin]Onset: 25-73-6121ZuqtgisyBekkogpjx (except that caused by tuberculosis or sexually transmitted disease) (2 sources)Pneumonia; Translations: [Pneumonia, unspecified organism]Onset: 91-83-0156CwxvaashJfmygkxc codes; unclassified (2 sources)Patient encounter status; Translations: [Other specified health status]Onset: 20-98-0148YiwvyzmhXkkomrd disorders (20 sources)Hypothyroidism; Translations: [Hypothyroidism, unspecified]Onset: 15-15-6412KjjihmpPedonmpmelty (14 sources)Sel--67hcineb24-57-7007Tarwuyqzhpnk (6 sources)Patient encounter suwppj42-74-6036Yqcpzyxmjtjj (1 source)M25.532 - Pain in left wrist; Translations: [M25.532 - Pain in left wrist]Onset: 12-08-2021 Results Test NameValueInterpretationReference RangeFacilityAmbulatory Visit Summaryon 97-68-4604Qnxycuuvis Visit SummaryAmbulatory Visit Summary DAYANNA MARY :1985 Visit Date:07/18/2025 Ambulatory Visit Instructions Your Care Team Attending Physician - ROSELIA CARLTON CNP Primary Care Physician - Zohreh Lee This Is Your Medications List calcium carbonate (Tums) lansoprazole (Prevacid) levothyroxine (levothyroxine 150 mcg (0.15 mg) Tab) Procedures Performed Dilation and curettage, Hysterectomy, Thyroidectomy, Tonsillectomy. Discharge Vitals Heart Rate (Peripheral) 94 Respiratory Rate 18 Blood Pressure 128/76 Height 168 cm Height 66 in Weight 105 kg Weight 231.485 lb BMI 37.2 What to do next Scheduled Follow-Up Appointments Wednesday 2:20 PM EST With: Emi PATIÑO, Zohreh Edward Where: [facility] [address] [place] [address], [place] [address]- Medications What How Much When Instructions Unchanged calcium carbonate (Tums) Unchanged lansoprazole (Prevacid) Unchanged levothyroxine (levothyroxine 150 mcg (0.15 mg) Tab) 1 Tablets By Mouth Every day Allergies Ceclor (Rash) amoxicillin (Rash) Problems Ongoing - Any problem that you are currently receiving treatment for. GERD (gastroesophageal reflux disease) Hypothyroidism Joint crepitus Obesity Routine adult health maintenance S/P partial hysterectomy Skin tag Umbilical hernia Patient Survey You may receive a survey via text or e-mail asking about your office visit. Please share your experience with us by completing your survey. We appreciate your feedback and thank you for choosing us for your care. Patient Portal You may access all of your results and other medical record information on our secure patient portal. If you are not signed up for this yet, please contact [employer] at [phone] to get signed up today. Language Information Language assistance services are available as needed. [facility] Medicine Office/Clinic Noteon [id number] Medicine Office/Clinic NoteFawestborough behavioral [facility] Medicine Office/Clinic Note Chief Complaint Sick Visit The patient reports symptoms of a viral infection and gastrointestinal discomfort. HPI Staff Zohreh Middleton pt. Presenting today for sick visit. Cough, runny nose, diarrhea, gastric issues & possible yeast infection. Sx started Wednesday night. Started with cough. Then woke up with diarrhea, sneezing & epigastric pain. Has been sweating, thinks is smells doughy, leading to yeast infection question. Does not have any vaginal sx. Did have yellow phlegm, is now clear. Denies fever. Has been taking Tylenol, Prevacid, tums, Pepto DayQuil & NyQuil. History of Present Illness 40-year-old female patient of BRIAN Whitney presenting with symptoms suggestive of a viral infection and gastrointestinal discomfort. The patient reports initial symptoms including fever, nasal congestion, and runny nose, which have since improved. She denies current fever and reports no ear pain, though she experienced nasal congestion and runny nose initially. The patient has a history of gastroesophageal reflux disease (GERD) and a hiatal hernia, which havebeen exacerbated by recent symptoms. She describes experiencing severe pain in the mid-chest area, particularly at night, which she attributes to her hernia and GERD. The pain was alleviated by taking antacids and cold medicine, allowing her to return to sleep. Review of Systems PHQ Score Initial Depression Screen Score: 0 SCORE - General: Denies current fever, reports previous fever and sweating. - HEENT: Reports previous nasal congestion and runny nose, denies current ear pain. - Respiratory: Denies current cough, reports previous symptoms consistent with viral infection. - Gastrointestinal: Reports gastroesophageal reflux disease, hiatal hernia, and recent severe chestpain alleviated by antacids. - Dermatological: Denies rashes, reports unusual sweating odor. Physical Exam Vitals & Measurements HR: 94(Peripheral) RR: 18 BP: 128/76 SpO2: 97% HT: 66 in HT: 168 cm WT: 231.485 lb WT: 105 kg BMI: 37.2 General: alert, no acute distress ENMT: TM's clear, oral mucosa moist, no pharyngeal erythema or exudate Cardiovascular: regular rate and rhythm, normal peripheral perfusion Respiratory: Lungs CTA, respirations non labored Extremities: no deformity, no trauma Neurological: oriented x 4, LOC appropriate for age speech normal Assessment/Plan 1. Viral syndrome (B34.9: Viral infection, unspecified) - Advise home COVID-19 testing and report results. - Symptomatic treatment advised, including rest and hydration. - Monitor for any progression of symptoms. - F/U if symptoms increase or no improvement Follow-up No qualifying data available Patient Education Viral Illness, Adult Problem List/Past Medical History Ongoing GERD (gastroesophageal reflux disease) Hypothyroidism Joint crepitus Obesity Routine adult health maintenance S/P partial hysterectomy Skin tag Umbilical hernia Historical No qualifying data Procedure/Surgical History Dilation and curettage, Hysterectomy, Thyroidectomy, Tonsillectomy. Medications levothyroxine 150 mcg (0.15 mg) Tab, 150 mcg= 1 tab(s), Oral, Daily, 1 refills Prevacid Tums Allergies Ceclor (Rash) amoxicillin (Rash) Social History Alcohol - Denies Alcohol Use, 01/19/2023 Never., 10/05/2024 Substance Abuse - Denies Substance Abuse, 01/19/2023 Never., 10/05/2024 Tobacco Never (less than 100 in lifetime) Tobacco Use:. Never Smokeless Tobacco Use:. Household tobacco concerns: Yes., 07/18/2025 Family History Hypertension: Grandparent. Stroke: Mother, Grandparent and Grandparent. Thyroid dysfunction: Grandparent. Immunizations Vaccine Date Status Comments influenza virus vaccine, inactivated 09/04/2024 Given Prophylaxis influenza virus vaccine, inactivated 09/23/2023 Given Prophylaxis influenza virus vaccine, inactivated 09/03/2022 Given Prophylaxis SARSCoV2 mRNA(mvtdeslap-ggso-mfmhex) vac 02/01/2022 Recorded SARSCoV2 mRNA(qxaxdbwdv-tdtf-upzgnm) vac 01/11/2022 Recorded influenza virus vaccine, inactivated 10/30/2021 Recorded influenza, unspecified formulation 11/06/2020 RecordedHarrison Community HospitalComment on above:Result Comment: Electronically Signed By: ROSELIA CARLTON CNP\.br\Date and Time Signed: 07/18/25 15:22 EDTAmbulatory Visit Summaryon [id number] Visit SummaryAmbulatory Visit Summary DAYANNA MARY Cynthia :1985 Visit Date:04/25/2025 Ambulatory Visit Instructions Your Diagnosis Hypothyroidism BMI 35.0-35.9,adult Skin tag Routine adult health maintenance Your Care Team Attending Physician - Zohreh Lee Primary Care Physician - Zohreh Lee This Is Your Medications List calcium carbonate (Tums) lansoprazole (Prevacid) levothyroxine (levothyroxine 150 mcg (0.15 mg) Tab) Procedures Performed Dilation and curettage, Hysterectomy, Thyroidectomy, Tonsillectomy. Discharge Vitals Heart Rate (Peripheral) 76 Respiratory Rate 18 Blood Pressure 118/64 Height 168 cm Height 66 in Weight 101.3 kg Weight 223.328 lb BMI 35.89 What to do next Scheduled Follow-Up Appointments Wednesday 2:20 PM EST With: Zohreh Lee Where: [facility] [address], [place] [address]- You Need to Schedule the Following Appointments Follow Up with Zohreh Lee When: In 6 months Comments: [facility] Where: [address] [place] [address]- Medications What How Much When Instructions Unchanged calcium carbonate (Tums) Unchanged lansoprazole (Prevacid) Unchanged levothyroxine (levothyroxine 150 mcg (0.15 mg) Tab) 1 Tablets By Mouth Every day Pickup at [facility] Pharmacy Information [facility]: [address] [place], [place] [id number] [phone] Allergies Ceclor (Rash) amoxicillin (Rash) Problems Ongoing - Any problem that you are currently receiving treatment for. GERD (gastroesophageal reflux disease) Hypothyroidism Joint crepitus Routine adult health maintenance S/P partial hysterectomy Skin tag Umbilical hernia Patient Survey You may receive a survey via text or e-mail asking about your office visit. Please share your experience with us by completing your survey. We appreciate your feedback and thank you for choosing us for your care. Education Materials Obesity, Adult Obesity is the condition of having too much total body fat. Being overweight or obese means that your weight is greater than what is considered healthy for your body size. Obesity is determined by a measurement called BMI (body mass index). BMI is an estimate of body fat and is calculated from height and weight. For adults, a BMI of 30 or higher is considered obese. Obesity can lead to other health concerns and major illnesses, including: ??? Stroke. ??? Coronary artery disease (CAD). ??? Type 2 diabetes. ??? Some types of cancer, including cancers of the colon, breast, uterus, and gallbladder. ??? High blood pressure (hypertension). ??? High cholesterol. ??? Gallbladder stones. Obesity can also contribute to: ??? Osteoarthritis. ??? Sleep apnea. ??? Infertility problems. What are the causes? Common causes of this condition include: ??? Eating daily meals that are high in calories, sugar, and fat. ??? Drinking high amounts of sugar-sweetened beverages, such as soft drinks. ??? Being born with genes that may make you more likely to become obese. ??? Having a medical condition that causes obesity, including: ? Hypothyroidism. ? Polycystic ovarian syndrome (PCOS). ? Binge-eating disorder. ? Viper syndrome. ??? Taking certain medicines, such as steroids, antidepressants, and seizure medicines. ??? Not being physically active (sedentary lifestyle). ??? Not getting enough sleep. What increases the risk? The following factors may make you more likely to develop this condition: ??? Having a family history of obesity. ??? Living in an area with limited access to: ? [place], recreation centers, or sidewalks. ? Healthy food choices, such as grocery stores and [employer] markets. What are the signs or symptoms? The main sign of this condition is having too much body fat. How is this diagnosed? This condition is diagnosed based on: ??? Your BMI. If you are an adult with a BMI of 30 or higher, you are considered obese. ??? Your waist circumference. This measures the distance around your waistline. ??? Your skinfold thickness. Your health care provider may gently pinch a fold of your skin and measureit. You may have other tests to check for underlying conditions. How is this treated? Treatment for this condition often includes changing your lifestyle. Treatment may include some or all of the following: ??? Dietary changes. This may include developing a healthy meal plan. ??? Regular physical activity. This may include activity that causes your heart to beat faster (aerobicexercise) and strength training. Work with your health care provider to design an exercise program that works for you. ??? Medicine to help you lose we (more content not included)...NormalMercy Health Kings Mills HospitalCHEMISTRYOrdered By: SYSTEM SYSTEM on 01-24-4045Lbfb T4 [Mass/Vol] 1.10 ng/dLNormal0.58 - 1.64 ng/dLRemisol ChemTSH Qn3.33 m[IU]/LNormal0.34 - 5.60 mcIU/mLRemisol ChemFamily Medicine Office/Clinic Noteon [phone] Medicine Office/Clinic NoteSouth [facility] Chief Complaint Chronic Condition follow up HPI Staff Patient here for 6 month Chronic Condition f/u Patient is here for follow up on Thyroid Disease. Do you have any of the following symptoms? Change in energy level? yes more fatigue Weight change? no Heat/cold intolerance? yes patient notes she is clammy all the time Hair/skin/nail changes? no Change in bowels? no TSH: 1.04 mcIU/mL (10/09/24 15:52:00) T4 Free: 1.09 ng/dL (10/09/24) - Concerns: Patient notes she has recently been feeling clammy and hot all the time . She is also experiencing night sweets and fatigue. She notes in specific areas she is now developing skin tags. Patient notes since the partial hysterectomy she hasn't had menses. Pap: due, patient to call Dr. Gamino ([place]) History of Present Illness Dayanna is a 39 yo female presenting today for f/u thyroid Pt reports since having her partial hysterectomy she's had night sweats, fatigue, hot flashes. She reports she has not had a period in over a year and has new skin tag that around around her chest where she often sweats at night. Patient is hypothyroid Compliant with medication. Is taking on an empty stomach. Current medication dose: levothyroxine 150mcg/d Pt denies sx of memory loss, increased weight, menorrhagia, skin/hair dryness, mental slowness, increased tiredness, intolerance to cold, raised BP, energy loss, depression, slow reflexes or constipation at this time. Review of Systems PHQ Score Initial Depression Screen Score: 0 SCORE Physical Exam Vitals & Measurements HR: 76(Peripheral) RR: 18 BP: 118/64 SpO2: 96% HT: 168 cm HT: 66 in WT: 223.328 lb WT: 101.3 kg BMI: 35.89 General: Well developed, well nourished, in no acute distress Eyes: Bilateral PERRLA, conjunctivae and sclerae wnl, EOMs intact, lids without stye, chalazion, ect/extropion, ptosis, xanthelasma, blepharitis. No discharge to inner canthi.Negative for corneal abrasion or foreign bodies. Ears: grossly normal hearing Nose: No deformity, discharge, inflammation, or lesions. No congestion, no erythema; pink & moist turbinates; clear rhinorrhea. Mouth: mucous membranes pink, moist and intact. [place] posterior oropharynx, no palatal inflammation,uvula midline, no cobble-stoning, no enlarged tonsils, no tonsillar exudate, no ulcers, no active post nasal drip. tongue midline and wnl. Good dentition. Neck: Neck supple. No lymphadenopathy. Trachea midline. No thyroid, masses, tenderness, or enlargement noted. No bruit. Lungs: Normal respiratory effort and clear to auscultation Cardio: Regular rate and rhythm, normal S1 and S2, no murmur, no rub Abdomen: not assessed Musculoskeletal: No deformity or scoliosis noted. No vertebral tenderness. Normal range of motion. No vertebral point tenderness. Joints normal. No erythema, edema, effusion, crepitus, or ecchymosis.Straight leg raise negative Extremity: No clubbing, cyanosis, edema, or deformity. Normal ROM with upper and lower extremities,bilaterally. Neurologic: Cranial nerves II-XII grossly intact. motor strength equal & normal bilaterally, sensation equal & normal bilaterally. Gait normal. Skin: multiple tiny skin tags with stalks noted through neck/chest bilaterally. No acanthosis nigracans noted Mental Status: Alert and oriented x3. Normal mood and affect Assessment/Plan 1. Hypothyroidism (E03.9: Hypothyroidism, unspecified) chronic stable - TSH: 3.33 mcIU/mL (04/25/25 07:55:00) T4 Free: 1.1 ng/dL (04/25/25) Continue levothyroxine 150 mcg once daily on an empty stomach away from other medications. Remove the following from your diet: ultra-processed foods, artificial sweeteners, trans fats, alcohol. Incorporate the following into your diet: whole foods rich iodine (fish, iodized salt), selenium (brazil nuts, sardines, oysters, salmon), omega-3 (fatty fish, seafood, walnuts, flax seeds, pumpkin seeds). Protein-rich food sources (poultry, beef, liver). Fiber-rich foods (nuts, seeds, low-glycemicgrains, legumes) Consider supplementations: Multivitamin, Amma-3, B vitamins, Magnesium, Vitamin D, liposomal Vitamin C, adaptogens such as ashwagandha, milk thistle, curcumin (turmeric), selenium). Incorporate lifestyle changes: stress control (meditation, yoga, journaling, nature walks, breathwork), prioritize sleep, exercise regularly, reduce exposure to environmental toxins (use clean personal care products, shop organic when possible, drink filtered water, use air filters) f/u 6 mo to reassess or sooner if sx occur. Pt verbalized understanding Ordered: Free T4 Free T4 Thyroid Stimulating Hormone Thyroid Stimulating Hormone 2. Skin tag (L91.8: Other hypertrophic disorders of the skin) will work up possible insulin resistance with A1c, insulin, lipids, C-peptide level negative for acanthosis nigricans Ordered: C-Peptide Comprehensive Metabolic Panel HgbA1c Insulin Free and Total Lipid Panel 3. BMI 35.0-3 (more content not included)...[facility] Comment on above:Result Comment: Electronically Signed By: Zohreh Lee\.br\Date and Time Signed: 04/25/25 15:41 EDTFree T4on 04-25-2025 Free T4 [Mass/Vol]1.10 ng/dLNormal0.58-1.64[facility] HospitalComment on above:Performed By: #### [id number] #### [facility] [address], [place] [address]GTSxt [id number] Qn3.33 m[IU]/LNormal0.34-5.60[facility] HospitalComment on above:Performed By: #### [id number] #### [facility] [address], [place] [address]Hwnelpurqk Visit Summaryon [id number] Visit Summary Ambulatory Visit Summary DAYANNA MARY :1985 Visit Date:10/11/2024 Ambulatory Visit Instructions Your Diagnosis Hypothyroidism Pneumonia Obesity BMI 35.0-35.9,adult Your Care Team Attending Physician - Zohreh Lee Primary Care Physician - Zohreh Lee This Is Your Medications List albuterol (Albuterol (Eqv-ProAir HFA) 90 mcg/inh inhalation aerosol) calcium carbonate (Tums) doxycycline (doxycycline hyclate 100 mg Tab) lansoprazole (Prevacid) levothyroxine (levothyroxine 150 mcg (0.15 mg) Tab) Procedures Performed Dilation and curettage, Hysterectomy, Thyroidectomy, Tonsillectomy. Discharge Vitals Temperature (Oral) 36.8 ???C Heart Rate (Peripheral) 81 Blood Pressure 122/80 Height 168 cm Height 66 in Weight 101.1 kg Weight 222.887 lb BMI 35.82 What to do next Scheduled Follow-Up Appointments Wednesday. 2024 2:40 PM EDT With: Zohreh Lee Where: [facility] [address] [place] [address]- You Need to Schedule the Following Appointments Follow Up with Zohreh Lee When: In 6 months Comments: f/u thyroid Where: [address] [place] [address]- You Need to Complete the Following Free T4, Blood, Routine collect, 10/11/24, Order for future visit, Lab Collect, Hypothyroidism, Print Label By Order Location Thyroid Stimulating Hormone, Blood, Routine collect, 10/11/24, Order for future visit, Lab Collect,Hypothyroidism, Print Label By Order Location Medications What How Much When Why Instructions New albuterol (Albuterol (Eqv-ProAir HFA) 90 mcg/ inh inhalation aerosol) 2 Inhalation Inhalation Every 4 hours Pneumonia [facility] Changed levothyroxine (levothyroxine 150 mcg (0.15 mg) Tab) 1 Tablets By Mouth Every day Pickup at [facility] Unchanged calcium carbonate (Tums) Unchanged doxycycline (doxycycline hyclate 100 mg Tab) 1 Tablets By Mouth Every 12 hours Bronchopneumonia Duration: 7 Days Unchanged lansoprazole (Prevacid) Pharmacy Information [facility]: [address] [place], [place] [phone] Allergies Ceclor (Rash) amoxicillin (Rash) Problems Ongoing - Any problem that you are currently receiving treatment for. BMI 35.0-35.9,adult GERD (gastroesophageal reflux disease) Hypothyroidism Joint crepitus Non-smoker Obesity Oral candidiasis Pneumonia S/P partial hysterectomy Umbilical hernia Patient Survey You may receive a survey via text or e-mail asking about your office visit. Please share your experience with us by completing your survey. We appreciate your feedback and thank you for choosing us for your care. Education Materials Obesity, Adult Obesity is the condition of having too much total body fat. Being overweight or obese means that your weight is greater than what is considered healthy for your body size. Obesity is determined by a measurement called BMI (body mass index). BMI is an estimate of body fat and is calculated from height and weight. For adults, a BMI of 30 or higher is considered obese. Obesity can lead to other health concerns and major illnesses, including: ??? Stroke. ??? Coronary artery disease (CAD). ??? Type 2 diabetes. ??? Some types of cancer, including cancers of the colon, breast, uterus, and gallbladder. ??? High blood pressure (hypertension). ??? High cholesterol. ??? Gallbladder stones. Obesity can also contribute to: ??? Osteoarthritis. ??? Sleep apnea. ??? Infertility problems. What are the causes? Common causes of this condition include: ??? Eating daily meals that are high in calories, sugar, and fat. ??? Drinking high amounts of sugar-sweetened beverages, such as soft drinks. ??? Being born with genes that may make you more likely to become obese. ??? Having a medical condition that causes obesity, including: ? Hypothyroidism. ? Polycystic ovarian syndrome (PCOS). ? Binge-eating disorder. ? Alize syndrome. ??? Taking certain medicines, such as steroids, antidepressants, and seizure medicines. ??? Not being physically active (sedentary lifestyle). ??? Not getting enough sleep. What increases the risk? The following factors may make you more likely to develop this condition: ??? Having a family history of obesity. ??? Living in an area with limited access to: ? [place], recreation centers, or sidewalks. ? Healthy food choices, such as grocery stores and [employer] markets. What are the signs or symptoms? The main sign of this condition is having too much body fat. How is this diagnosed? This condition is diagnosed based on: ??? Your BMI. If you are an adult with a BMI of 30 or higher, you are conside (more content not included)...[facility] Office/Clinic Noteon [id number] Medicine Office/Clinic NoteFawestborough [facility] Medicine Office/Clinic Note Chief Complaint pt here for 8 month f/u. [facility] Staff Last routine labs: 10/09/24 smoker status: never flu vaccine status: utd History of Present Illness Dayanna is a 39 yo female presenting today for f/u thyroid Pt was recently seen for acute visit and dx with pneumonia and started on doxycycline. She was alsoprescribed Pulmicort but says this was not covered by her HIC. She asked for a new Rx. Pt reports feeling tired but is back to work and reports still having mild SOB with excessive exercise and cough with some chest tightness. Denies CP. Pt has second hand smoke exposure. Patient is hypothyroid TSH: 1.04 mcIU/mL (10/09/24 15:52:00) Compliant with medication. Is taking on an empty stomach. Current medication dose: Levothyroxine 150 mcg once daily Pt denies sx of memory loss, increased weight, menorrhagia, skin/hair dryness, mental slowness, increased tiredness, intolerance to cold, raised BP, energy loss, depression, slow reflexes or constipation at this time. Pt reports great improvements in feelings of fatigue and brain fog lately. Review of Systems PHQ Score Initial Depression Screen Score: 0 SCORE Physical Exam Vitals & Measurements T: 36.8 ???C(Oral) HR: 81(Peripheral) BP: 122/80 SpO2: 97% HT: 66 in HT: 168 cm WT: 101.1 kg WT: 222.887 lb BMI: 35.82 General: Well developed, well nourished, in no acute distress Eyes: Bilateral PERRLA, conjunctivae and sclerae wnl, EOMs intact, lids without stye, chalazion, ect/extropion, ptosis, xanthelasma, blepharitis. No discharge to inner canthi.Negative for corneal abrasion or foreign bodies. Ears: grossly normal hearing Nose: No deformity, discharge, inflammation, or lesions. No congestion, no erythema; pink & moist turbinates; clear rhinorrhea. Mouth: mucous membranes pink, moist and intact. [place] posterior oropharynx, no palatal inflammation,uvula midline, no cobble-stoning, no enlarged tonsils, no tonsillar exudate, no ulcers, no active post nasal drip. tongue midline and wnl. Good dentition. Neck: Neck supple. No lymphadenopathy. Trachea midline. No thyroid, masses, tenderness, or enlargement noted. No bruit. Lungs: normal respiratory effort, mild audible dry cough, left sided inspiratory wheeze in [place] and LLL Cardio: Regular rate and rhythm, normal S1 and S2, no murmur, no rub Abdomen: not assessed Musculoskeletal: No deformity or scoliosis noted. No vertebral tenderness. Normal range of motion. No vertebral point tenderness. Joints normal. No erythema, edema, effusion, crepitus, or ecchymosis.Straight leg raise negative Extremity: No clubbing, cyanosis, edema, or deformity. Normal ROM with upper and lower extremities,bilaterally. Neurologic: Cranial nerves II-XII grossly intact. motor strength equal & normal bilaterally, sensation equal & normal bilaterally. Gait normal. Skin: No rashes, ulcerations, or suspicious lesions Mental Status: Alert and oriented x3. Normal mood and affect Assessment/Plan 1. Hypothyroidism (E03.9: Hypothyroidism, unspecified) chronic stable - TSH: 1.04 mcIU/mL (10/09/24 15:52:00) Continue levothyroxine 150 mcg once daily on an empty stomach away from other medications. Recheck TSH/T4 in 6 mo -will call with lab results and change dose accordingly if needed Remove the following from your diet: ultra-processed foods, artificial sweeteners, trans fats, alcohol. Incorporate the following into your diet: whole foods rich iodine (fish, iodized salt), selenium (brazil nuts, sardines, oysters, salmon), omega-3 (fatty fish, seafood, walnuts, flax seeds, pumpkin seeds). Protein-rich food sources (poultry, beef, liver). Fiber-rich foods (nuts, seeds, low-glycemicgrains, legumes) Consider supplementations: Multivitamin, Amma-3, B vitamins, Magnesium, Vitamin D, liposomal Vitamin C, adaptogens such as ashwagandha, milk thistle, curcumin (turmeric), selenium). Incorporate lifestyle changes: stress control (meditation, yoga, journaling, nature walks, breathwork), prioritize sleep, exercise regularly, reduce exposure to environmental toxins (use clean personal care products, shop organic when possible, drink filtered water, use air filters) f/u 6 mo to reassess or sooner if sx occur. Pt verbalized understanding Ordered: Free T4 Thyroid Stimulating Hormone 2. Pneumonia (J18.9: Pneumonia, unspecified organism) use albuterol q4h PRN to help with cough continue full course of doxycycline as prescribed Discussed red flags/when to report to ED - pt verbalized understanding Ordered: albuterol, 180 mcg, 2 inh, Inhalation, q4hr, 18 gm, Refill(s) 0, [facility], 168, cm, 10/11/24 7:04:00 EST, Height/Length Dosing, 101.1, kg, 10/11/24 7:04:00 EST, Weight Dosing 3. Obesity (E66.9: Obesity, unspecified) Reviewed importance of making a lifestyle change regarding dietary choices. Discussed goals. Encouraged routine cardio exercise with Goal: 3-5x/week for 30- 45 minutes. Start o (more content not included)...NormalMer[facility] HospitalComment on above:Result Comment: Electronically Signed By: Emi PATIÑO, Zohreh Edward\.br\Date and Time Signed: 10/11/24 07:22 ESTCHEMISTRYOrdered By: SYSTEM SYSTEM on [id number] T4 [Mass/Vol]1.09 ng/dLNormal0.58 - 1.64 ng/dL Remisol ChemTSH Qn1.04 m[IU]/LNormal0.34 - 5.60 mcIU/mLRemisol ChemFree T4on [id number] T4 [Mass/Vol]1.09 ng/dLNormal0.58-1.64[facility] Comment on above:Performed By: #### [id number] #### [facility] [address], [place] [address]ZYUjv [id number] Qn1.04 m[IU]/LNormal0.34-5.60[facility] HospitalComment on above:Performed By: #### [id number] #### [facility] [address] [place], [place] [address]DD Chest 2 Viewson [id number] Chest 2 ViewsExam Date/Time: 10/06/2024 09:55 EST Reason for Exam: R05.8;Cough Report IMPRESSION: MILD RIGHT LOWER LUNG ZONE OPACITIES, SUSPICIOUS FOR BRONCHOPNEUMONIA. EXAM: XR Chest 2 Views DATE: 10/06/2024 9:45 AM CLINICAL HISTORY: Cough, R05.8. COMPARISON: 11/03/2023. TECHNIQUE: Upright PA and lateral radiographs of the chest were obtained. FINDINGS: Mild streaky opacity of the right lower lung zone is suspicious for bronchopneumonia. There is no cardiomegaly, pleural effusion, vascular congestion, pneumothorax, or displaced fractures identified. Ordering Provider: ROSELIA CARLTON FINAL REPORT Dictated: 10/06/2024 4:08 pm Kiran Rodriguez MD Signed (Electronic Signature): 10/06/2024 4:08 pm Signed by: Kiran Rodriguez MD Transcribed by: CHEMA Technologist: CHINTAN Technical Comments Radiation Dose: Ka,r in mGy = na DAP = naNormalNorth Carolina Specialty Hospitaler [facility] CampusAmbulatory Visit Summaryon 10-05-2024 Ambulatory Visit SummaryAmbulatory Visit Summary DAYANNA MARY :1985 Visit Date:10/05/2024 Ambulatory Visit Instructions Your Diagnosis Cough productive of clear sputum Nasal congestion Your Care Team Attending Physician - ROSELIA CARLTON CNP Primary Care Physician - Zohreh Lee This Is Your Medications List budesonide (budesonide 90 mcg/inh inhalation powder) calcium carbonate (Tums) lansoprazole (Prevacid) levothyroxine (levothyroxine 150 mcg (0.15 mg) Tab) Procedures Performed Dilation and curettage, Hysterectomy, Thyroidectomy, Tonsillectomy. Discharge Vitals Temperature (Oral) 36.8 ???C Heart Rate (Peripheral) 88 Respiratory Rate 20 Blood Pressure 128/88 Height 168.0 cm Height 66 in Weight 98.8 kg Weight 217.36 lb BMI 35.01 What to do next Scheduled Follow-Up Appointments Wednesday 7:00 AM EST With: Emi HAROON, Zohreh Edward Where: [facility] [address] [place] [address]- You Need to Complete the Following XR Chest 2 Views, 10/05/24, Routine, Order for future visit, Transport Mode: Ambulatory, Reason: Cough, No, Cough productive of clear sputum, pp_set_radiology_subspecialty, [facility] Medications What How Much When Why Instructions New budesonide (budesonide 90 mcg/ inh inhalation powder) 2 Inhalation Inhalation 2 times a day Cough productive of clear sputum Refills: 1 Pickup at [facility] Unchanged calcium carbonate (Tums) Unchanged lansoprazole (Prevacid) Unchanged levothyroxine (levothyroxine 150 mcg (0.15 mg) Tab) 1 Tablets By Mouth Every day Duration: 30 Days Pharmacy Information [facility]: [address] [place], [place] [phone] Allergies Ceclor (Rash) amoxicillin (Rash) Problems Ongoing - Any problem that you are currently receiving treatment for. GERD (gastroesophageal reflux disease) Hypothyroidism Joint crepitus Non-smoker Obesity Oral candidiasis S/P partial hysterectomy Umbilical hernia Patient Survey You may receive a survey via text or e-mail asking about your office visit. Please share your experience with us by completing your survey. We appreciate your feedback and thank you for choosing us for your care. [facility] Medicine Office/Clinic Noteon [id number] Medicine Office/Clinic NoteFawestborough behavioral healthcare hospital Medicine Office/Clinic Note HPI Staff Dayanna is a 39 year old female presenting with runny nose, diarrhea, chest congestion Started Wednesday Headache- no the first couple days not such any more Earache- no Sinus Congestion- no chest congestion Rhinorrhea- yes Sore Throat- no Cough- yes wheezing- yes Dyspnea on exertion- no Orthopnea- Trouble laying flat/breathing through nose: yes always had this Lung Hx (asthma, recurring bronchitis/chest colds, COPD)- no Fevers/chills- no GI symptoms- yes diarrhea Tried- Day quil Nyquil Tylenol Motrin stream shower COVID- tested IO today- NEG FLU tested today IO- NEG History of Present Illness 39 year old patient of BRIAN Whitney presents today for an acute visit for runny nose, cough, congestion, & diarrhea. She states her cough and congestion began on Wednesday and have been worsening since. The diarrhea started yesterday. She states her cough is productive and describes the mucous as clear-yellow in color. She reports checking her temperature at home and has been afebrile however reports excessive sweating at home. She has tried OTC cold treatments without adequate relief. Review of Systems PHQ Score Initial Depression Screen Score: 0 SCORE Constitutional: no fever, no chills, no sweats, no weakness Skin: no Jaundice, no rash, no lesions, nopetechiae ENMT: no ear pain, no sore throat, no congestion, no hoarseness Respiratory: no shortness of breath, no cough, no orthopnea, no wheezing Cardiovascular: no chest pain, no palpitations, no edema Gastrointestinal: no nausea, no vomiting, no diarrhea, no GI bleeding Genitourinary: no dysuria, no hematuria, no discharge, no pain Musculoskeletal: no back pain, no trauma Neurologic: no headache, no dizziness, no numbness, no weakness Psychiatric: no sleeping problems, no irritability, no mood swings/depression. Heme/Lymph: no bleeding tendency, no bruising tendency, no petechiae, no swollen nodes Allergy/Immunologic: no seasonal allergies, no food allergies, no recurrent infections, no impairedimmunity Additional ROS info: Except as noted in the above Review of Systems and in the History of Present Illness all other systems have been reviewed and are negative or noncontributory. Physical Exam Vitals & Measurements T: 36.8 ???C(Oral) HR: 88(Peripheral) RR: 20 BP: 128/88 SpO2: 98% HT: 66 in HT: 168.0 cm WT: 98.8 kg WT: 217.36 lb BMI: 35.01 General: alert, no acute distress Skin: warm, diaphoretic Head: no trauma, normocephalic Neck: Trachea midline, no adenopathy, no tenderness Eye: normal conjunctiva, sclera clear ENMT: TM's clear, oral mucosa moist, no pharyngeal erythema or exudate Cardiovascular: regular rate and rhythm, normal peripheral perfusion Respiratory: Lungs expiratory wheezes, respirations non labored Chest wall: no deformity. Gastrointestinal: soft, non distended, no tenderness, no guarding. Neurological: oriented x 4, LOC appropriate for age speech normal Psychiatric: cooperative, affect appropriate for age, normal judgement, normal psychiatric thoughts. Assessment/Plan 1. Cough productive of clear sputum (R05.8: Other specified cough) Discussed viral vs bacterial Awaiting CXR results f/u with pcp as scheduled Ordered: budesonide, 2 inh, Inhalation, BID, 1 EA, Refill(s) 1, [facility], 168, cm, 10/05/24 10:16:00 EST, Height/Length Dosing, 98.8, kg, 10/05/24 10:16:00 EST, Weight Dosing Influenza Type A&B POC 75155 Rapid COVID POC 38990 XR Chest 2 Views 2. Nasal congestion (R09.81: Nasal congestion) POC Influenza & COVID - negative Ordered: Influenza Type A&B POC 44588 Rapid COVID POC 39777 3. Expiratory wheezing (R06.2: Wheezing) Discussed viral vs bacterial Awaiting CXR results Start budesonide, 2 inh, Inhalation, BID Follow-up No qualifying data available Patient Education Cough, Adult, Yqii-[id number] Problem List/Past Medical History Ongoing GERD (gastroesophageal reflux disease) Hypothyroidism Joint crepitus Non-smoker Obesity Oral candidiasis S/P partial hysterectomy Umbilical hernia Historical No qualifying data Procedure/Surgical History Dilation and curettage, Hysterectomy, Thyroidectomy, Tonsillectomy. Medications budesonide 90 mcg/inh inhalation powder, 2 inh, Inhalation, BID, 1 refills levothyroxine 150 mcg (0.15 mg) Tab, 150 mcg= 1 tab(s), Oral, Daily Prevacid Tums Allergies Ceclor (Rash) amoxicillin (Rash) Social History Alcohol - Denies Alcohol Use, 01/19/2023 Never., 10/05/2024 Substance Abuse - Denies Substance Abuse, 01/19/2023 Never., 10/05/2024 Tobacco Never (less than 100 in lifetime) Tobacco Use:. Never Smokeless Tobacco Use:. Cigarettes, 10/05/2024 Family History Hypertension: Grandparent. Stroke: Mother, Grandparent and Grandparent. Thyroid dysfunction: Grandparent. Immunizations Vaccine Date Status Comments influenza virus vaccine, inactivated (more content not included)...[facility] HospitalComment on above:Result Comment: Electronically Signed By: ROSELIA CARLTON CNP\Date and Time Signed: 10/05/24 14:59 ESTProvider Letteron [phone] LetterProvider Letter October 05, 2024 DAYANNA MARY [address] [place] [address] : 1985 To Whom It May Concern, Please excuse above patient from work, due to illness. Date of Illness: From: _10-04-24 To: _10-06-24 May Return to Work On: 10-09-24 Restrictions: _ Comments: _ Sincerely, Family Medicine [address] [address] HdgiabJlbjhdHarrison Community HospitalAmbulatory Visit Summaryon [id number] Visit Summary USMAN DAYANNA Cynthia :1985 Visit Date:02/09/2024 Ambulatory Visit Instructions Your Diagnosis Hypothyroidism Obesity BMI 35.0-35.9,adult Your Care Team Attending Physician - Zohreh Lee Primary Care Physician - Zohreh Lee This Is Your Medications List calcium carbonate (Tums) lansoprazole (Prevacid) levothyroxine (levothyroxine 150 mcg (0.15 mg) Tab) Procedures Performed Dilation and curettage, Hysterectomy, Thyroidectomy, Tonsillectomy. Discharge Vitals Temperature (Oral) 36.4 ?C Heart Rate (Peripheral) 77 Blood Pressure 124/60 Height 168 cm Height 66 in Weight 100.6 kg Weight 221.32 lb BMI 35.64 What to do next Scheduled Follow-Up Appointments Wednesday 7:00 AM EST With: Zohreh Lee [facility] Office/Clinic Noteon [id number] Medicine Office/Clinic NoteChief Complaint pt here for 6 month f/u. HPI Staff Last routine labs: TSH- 02/08/24, All other labs 12/25/22 smoker status: never History of Present Illness Dayanna is 38 yo female presenting today for 6-month follow-up of hypothyroidism Patient is hypothyroid Compliant with medication. Is taking on an empty stomach. Current medication dose: Levothyroxine 150 mcg once daily Pt denies sx of memory loss, increased weight, menorrhagia, skin/hair dryness, mental slowness, increased tiredness, intolerance to cold, raised BP, energy loss, depression, slow reflexes or constipation at this time. Pt reports great improvements in feelings of fatigue and brain fog lately. TSH: 18.49 mcIU/mL High (07/27/23 15:09:00) TSH: 3.99 mcIU/mL (02/08/24 16:40:00) Review of Systems PHQ Score Initial Depression Screen Score: 0 SCORE Physical Exam Vitals & Measurements T: 36.4 ?C(Oral) HR: 77(Peripheral) BP: 124/60 SpO2: 98% HT: 66 in HT: 168 cm WT: 100.6 kg WT: 221.32 lb BMI: 35.64 General: Well developed, well nourished, in no acute distress Eyes: Bilateral PERRLA, conjunctivae and sclerae wnl, EOMs intact, lids without stye, chalazion, ect/extropion, ptosis, xanthelasma, blepharitis. No discharge to inner canthi.Negative for corneal abrasion or foreign bodies. Ears: grossly normal hearing Nose: No deformity, discharge, inflammation, or lesions. No congestion, no erythema; pink & moist turbinates; clear rhinorrhea. Mouth: mucous membranes pink, moist and intact. [place] posterior oropharynx, no palatal inflammation,uvula midline, no cobble-stoning, no enlarged tonsils, no tonsillar exudate, no ulcers, no active post nasal drip. tongue midline and wnl. Good dentition. Neck: Neck supple. No lymphadenopathy. Trachea midline. No thyroid, masses, tenderness, or enlargement noted. No bruit. Lungs: Normal respiratory effort and clear to auscultation Cardio: Regular rate and rhythm, normal S1 and S2, no murmur, no rub Abdomen: not assessed Musculoskeletal: No deformity or scoliosis noted. No vertebral tenderness. Normal range of motion. No vertebral point tenderness. Joints normal. No erythema, edema, effusion, crepitus, or ecchymosis.Straight leg raise negative Extremity: No clubbing, cyanosis, edema, or deformity. Normal ROM with upper and lower extremities,bilaterally. Neurologic: Cranial nerves II-XII grossly intact. motor strength equal & normal bilaterally, sensation equal & normal bilaterally. Gait normal. Skin: No rashes, ulcerations, or suspicious lesions Mental Status: Alert and oriented x3. Normal mood and affect Assessment/Plan 1. Hypothyroidism (E03.9: Hypothyroidism, unspecified) chronic stable - TSH: 3.99 mcIU/mL (02/08/24 16:40:00) Continue levothyroxine 150 mcg once daily on an empty stomach away from other medications. Recheck TSH/T4 in 6 mo -will call with lab results and change dose accordingly if needed Remove the following from your diet: ultra-processed foods, artificial sweeteners, trans fats, alcohol. Incorporate the following into your diet: whole foods rich iodine (fish, iodized salt), selenium (brazil nuts, sardines, oysters, salmon), omega-3 (fatty fish, seafood, walnuts, flax seeds, pumpkin seeds). Protein-rich food sources (poultry, beef, liver). Fiber-rich foods (nuts, seeds, low-glycemicgrains, legumes) Consider supplementations: Multivitamin, Amma-3, B vitamins, Magnesium, Vitamin D, liposomal Vitamin C, adaptogens such as ashwagandha, milk thistle, curcumin (turmeric), selenium). Incorporate lifestyle changes: stress control (meditation, yoga, journaling, nature walks, breathwork), prioritize sleep, exercise regularly, reduce exposure to environmental toxins (use clean personal care products, shop organic when possible, drink filtered water, use air filters) f/u 6 mo to reassess or sooner if sx occur. Pt verbalized understanding Ordered: Free T4 Thyroid Stimulating Hormone TSH With T4fr Reflex 2. Obesity (E66.9: Obesity, unspecified) Reviewed importance of making a lifestyle change regarding dietary choices. Discussed goals. Encouraged routine cardio exercise with Goal: 3-5x/week for 30- 45 minutes. Start out slow and increase to achieve your goals. Avoid late night snacking, do not skip breakfast and monitor cooking habits/avoid fast food and fried/fatty foods. Will monitor for progress. 3. BMI 35.0-35.9,adult (Z68.35: Body mass index [BMI] 35.0-35.9, adult) The standard range for ages 18 and older is >=18.5 and < 25 kg/m2. Your BMI today was above this range, this falls in the overweight to obese category and there are medical benefits to weight loss. We can offer counselling, referral, and/or medical support in addressing this problem. Your BMIand weight management will be followed at subsequent visits. Orders: levothyroxine, 150 mcg = 1 tab(s), Oral, Daily, # 90 tab(s), Refills(s) 1, Pharmacy: [facility], [facility], cm, 02/09/24 7:22:00 EDT, Height/Length Dosing, 1 (more content not included)...[facility] HospitalComment on above:Result Comment: Electronically Signed By: Emi PATIÑO, Zohreh Edward\.br\Date and Time Signed: 02/09/24 07:32 EDTCHEMISTRYOrdered By: SYSTEM SYSTEM on 20-28-1727LUW Qn3.99 m[IU]/LNormal0.34 - 5.60 mcIU/mLRemisol ChemConsent for Treatmenton [id number] for Treatment [id number]#1.00TIFFNormalMercy Health Kings Mills HospitalTS With T4fr Reflexon [id number] Qn3.99 m[IU]/LNormal0.34-5.60[facility] HospitalComment on above:Performed By: #### [id number] ####[facility] [address] [place], [place] [address]Ahoculf Educationon 69-75-1846Dghdirx EducationEndocrinology Hypothyroidism Hypothyroidism is when the thyroid gland does not make enough of certain hormones. This is called an underactive thyroid. The thyroid gland is a small gland located in the lower front part of the neck, just in front of the windpipe (trachea). This gland makes hormones that help control how the bodyuses food for energy (metabolism) as well as how the heart and brain function. These hormones also play a role in keeping your bones strong. When the thyroid is underactive, it produces too little ofthe hormones thyroxine (T4) and triiodothyronine (T3). What are the causes? This condition may be caused by: ? Marie's disease. This is a disease in which the body's disease-fighting system (immune system) attacks the thyroid gland. This is the most common cause. ? Viral infections. ? . ? Certain medicines. ? defects. ? Problems with a gland in the center of the brain (pituitary gland). ? Lack of enough iodine in the diet. Other causes may include: ? Past radiation treatments to the head or neck for cancer. ? Past treatment with radioactive iodine. ? Past exposure to radiation in the environment. ? Past surgical removal of part or all of the thyroid. What increases the risk? You are more likely to develop this condition if: ? You are female. ? You have a family history of thyroid conditions. ? You use a medicine called lithium. ? You take medicines that affect the immune system (immunosuppressants). What are the signs or symptoms? Common symptoms of this condition include: ? Not being able to tolerate cold. ? Feeling as though you have no energy (lethargy). ? Lack of appetite. ? Constipation. ? Sadness or depression. ? Weight gain that is not explained by a change in diet or exercise habits. ? Menstrual irregularity. ? Dry skin, coarse hair, or brittle nails. Other symptoms may include: ? Muscle pain. ? Slowing of thought processes. ? Poor memory. How is this diagnosed? This condition may be diagnosed based on: ? Your symptoms, your medical history, and a physical exam. ? Blood tests. You may also have imaging tests, such as an ultrasound or MRI. How is this treated? This condition is treated with medicine that replaces the thyroid hormones that your body does not make. After you begin treatment, it may take several weeks for symptoms to go away. Follow these instructions at home: ? Take itna-rny-vlhxvwo and prescription medicines only as told by your health care provider. ? If you start taking any new medicines, tell your health care provider. ? Keep all follow-up visits as told by your health care provider. This is important. ? As your condition improves, your dosage of thyroid hormone medicine may change. ? You will need to have blood tests regularly so that your health care provider can monitor your condition. Contact a health care provider if: ? Your symptoms do not get better with treatment. ? You are taking thyroid hormone replacement medicine and you: ? Sweat a lot. ? Have tremors. ? Feel anxious. ? Lose weight rapidly. ? Cannot tolerate heat. ? Have emotional swings. ? Have diarrhea. ? Feel weak. Get help right away if: ? You have chest pain. ? You have an irregular heartbeat. ? You have a rapid heartbeat. ? You have difficulty breathing. These symptoms may be an emergency. Get help right away. Call 911. ? Do not wait to see if the symptoms will go away. ? Do not drive yourself to the hospital. Summary ? Hypothyroidism is when the thyroid gland does not make enough of certain hormones (it is underactive). ? When the thyroid is underactive, it produces too little of the hormones thyroxine (T4) and triiodothyronine (T3). ? The most common cause is Marie's disease, a disease in which the body's disease-fighting system (immune system) attacks the thyroid gland. The condition can also be caused by viral infections, medicine, , or past radiation treatment to the head or neck. ? Symptoms may include weight gain, dry skin, constipation, feeling as though you do not have energy, and not being able to tolerate cold. ? This condition is treated with medicine to replace the thyroid hormones that your body does not make. This information is not intended to replace advice given to you by your health care provider. Make sure you discuss any questions you have with your health care provider. Document Revised: 11/17/2022 Document Reviewed: 11/17/2022 [employer] Patient Education ? 2022 [employer] Nutrition BMI for Adults What is BMI? Body mass index (BMI) is a number that is calculated from a person's weight and height. BMI can help estimate how much of a person's weight is composed of fat. BMI does not measure body fat directly.Rather, it is an alternative to procedures that directly measure body fat, which can be difficult and expensive. BMI can help identify peopl (more content not included)...[facility] HospitalProvider Letteron [phone] Letter December 20, 2023 DAYANNA MARY [address] [place] [address] : 1985 Dear Dayanna Mary , We have been trying to reach you with no success. It is important that you return our call regarding your appointment with our office that needs to be rescheduled upon receiving this letter. Also, atthe time of your call, please provide us with your current information. Thank you for your prompt attention to this matter. Sincerely, [facility] [address] [place] [address], [place] [address] OnrxpzHnmtamHarrison Community HospitalCHEMISTRYOrdered By: SYSTEM SYSTEM on [id number] [Mass/Vol]7.9 ug/dLNormal4.6 - 9.1 mcg/dLFT RemisolTSH Qn18.49 m[IU]/LHigh0.34 - 5.60 mcIU/mLDEACONESS HOSPITAL – [place] RemisolPREG QUANT HCGon 10-51-1488OQR QUANT<1NormalSumma HealthComment on above:Performed By: #### PREGQNT #### [facility] [address] [address] [address] Jhony SalasHCTaylor RANGESEE BELOWFirelands Regional Medical CenterComment on above: Result Comment: 5-50 0.2-1 WEEK 50-500 1-2 WEEKS 100-5,000 2-3 WEEKS 500-10,000 3-4 WEEKS 1,000-50,000 4-5 WEEKS 10,000-100,000 5-6 WEEKS 15,000-200,000 6-8 WEEKS 10,000-100,000 2-3 MONTHSPerformed By: #### PREGQNT #### [facility] [address] [address] [address] Jhony SalasTYPE AND SCREENon 07-09-8142LGKK AND SCREENNegativeFirelands Regional Medical CenterComment on above:Performed By: #### TNS #### [facility] [address] [place] [address] Dr. Jhony SalasCBC AUTO DIFFon 03-16-0524JJZN #0.1 103/ulNormal0.0-0.1The [facility] HospitalComment on above:Performed By: #### CBC #### [facility] [address] [place] [address] Dr. Jhony SalasBasophils/100 WBC (Bld)0.7 %Normal0.2-2.0[facility] Comment on above:Performed By: #### CBC #### [facility] [address] [place] [address] Dr. Jhony Berry #0.3 103/ulNormal0.0-0.7The [facility] HospitalComment on above: Performed By: #### CBC #### [facility] [address] [place] [address] Dr. Jhony Alcantaraosinophils/100 WBC (Bld)3.0 %Normal0.9-7.0[facility] Comment on above:Performed By: #### CBC #### [facility] [address] [place] [address] Dr. Jhony Alcantararythrocyte distribution width (RBC) [Ratio]13.2 %Sbcjwf49.0-15.0 Summa HealthComment on above:Performed By: #### CBC #### [facility] [address] [place] [address] Dr. Jhony SalasHematocrit (Bld) [Volume fraction]37.4 %Wevucd75.0-48.0The [facility] HospitalComment on above:Performed By: #### CBC #### [facility] [address] [place] [address] Dr. Jhony SalasHemoglobin (Bld) [Mass/Vol]12.4 g/qEWhdiua47.0-16.0The [facility] HospitalComment on above:Performed By: #### CBC #### [facility] [address] [place] [address] Dr. Jhony Caballero #0.04 10e3/ulCritically high0.00-0.03[facility] Comment on above:Performed By: #### CBC #### [facility] [address] [place] [address] Dr. Jhony Caballero %0.5 %Normal0.0-0.5The [facility] HospitalComment on above: Performed By: #### CBC #### [facility] [address] [place] [address] Dr. Jhony Laura #1.9 103/ulNormal1.2-3.8The [facility] HospitalComment on above:Performed By: #### CBC #### [facility] [address] [place] [address] Dr. Jhony Whipplehocytes/100 WBC (Bld)21.1 %Hskmcu72.5-60.0The [facility] HospitalComment on above:Performed By: #### CBC #### [facility] [address] [place] [address] Dr. Jhony BoschUAL DIFF REQNONormalThe [facility] HospitalComment on above: Performed By: #### CBC #### [facility] [address] [place] [address] Dr. Jhony Mims (RBC) [Entitic mass]31.1 rrEyxjka93.7-34.0The [facility] HospitalComment on above:Performed By: #### CBC #### [facility] [address] [place] [address] Dr. Jhony Mims (RBC) [Mass/Vol]33.2 g/oRBizwja44.9-35.2The [facility] HospitalComment on above:Performed By: #### CBC #### [facility] [address] [place] [address] Dr. Jhony Mims (RBC) [Entitic vol]93.7 mMYsgcdy79.0-99.0The [facility] HospitalComment on above:Performed By: #### CBC #### [facility] [address] [place] [address] Dr. Jhony Sanchez #0.6 103/ulNormal0.3-0.8The [facility] HospitalComment on above:Performed By: #### CBC #### [facility] [address] [place] [address] Dr. Jhony Anocytes/100 WBC (Bld)6.8 %Normal1.7-12.0The [facility] Comment on above:Performed By: #### CBC #### [facility] [address] [place] [address] Dr. Jhony ChicasUT #6.0 103/ulNormal1.4-6.5The [facility] HospitalComment on above:Performed By: #### CBC #### [facility] [address] [place] [address] Dr. Jhony Chicasutrophils/100 WBC (Bld)67.9 %Jeztpd78.0-75.0The [facility] HospitalComment on above:Performed By: #### CBC #### [facility] [address] [place] [address] Dr. Jhony Graylet mean volume (Bld) [Entitic vol]9.9 fLNormal9.5-13.5The [facility] HospitalComment on above:Performed By: #### CBC #### [facility] [address] [place] [address] Dr. Jhony HamT301 103/wpBctjbb951-756Pbu [facility] HospitalComment on above: Performed By: #### CBC #### [facility] [address] [place] [address] Dr. Jhony SalasRBC3.99 106/ulCritically low4.20-5.40The [facility] HospitalComment on above:Performed By: #### CBC #### [facility] [address] [place] [address] Dr. Jhony SalasWBC8.8 103/ulNormal4.0-11.0The [facility] HospitalComment on above: Performed By: #### CBC #### [facility] [address] [place] [address] Dr. Jhony Turner PROFILEon 83-45-8564Rjjpuzd [Mass/Vol]3.3 g/dLCritically low3.4-5.0The [facility] HospitalComment on above:Performed By: #### BMP, LIVER #### [facility] [address] [address] [address] Jhony SalasAlbumin/Globulin [Mass ratio]0.9 {ratio}NormalThe Cincinnati Shriners Hospitalment on above:Performed By: #### BMP, LIVER #### [facility] [address] [address] [address] Jhony KhanP [Catalytic activity/Vol]86 U/ILksyah27-154Jlc [facility] HospitalComup health system on above:Performed By: #### BMP, LIVER #### [facility] [address] [address] [address] Jhony Lima [Catalytic activity/Vol]18 U/OQvmlfq52-32Djl [facility] HospitalComment on above:Performed By: #### BMP, LIVER #### [facility] [address] [place] [address] Dr. Jhony SalasAST [Catalytic activity/Vol]16 U/RHqcmii23-44Vjk [facility] HospitalComup health system on above:Performed By: #### BMP, LIVER #### [facility] [address] [place] [address] Dr. Jhony VásquezI, CONJUGATED0.1 mg/dLNormal0.0-0.2The [facility] Comment on above:Performed By: #### BMP, LIVER #### [facility] [address] [place] [address] Dr. Jhony Vásquezirubin [Mass/Vol]0.3 mg/dLNormal0.2-1.0The [facility] Comment on above:Performed By: #### BMP, LIVER #### [facility] [address] [place] [address] Dr. Jhony SalasGlobulin (S) [Mass/Vol]3.5 g/dLNormalThe [facility] HospitalComment on above:Performed By: #### BMP, LIVER #### [facility] [address] [place] [address] Dr. Jhony SalasProtein [Mass/Vol]6.8 g/dLNormal6.4-8.2The [facility] Comment on above:Performed By: #### BMP, LIVER #### [facility] [address] [address] [address] Jhony SalasPROF CHEM 8 (BAS METB)on 77-75-7631Wfnlk gap [Moles/Vol]13.6 mmol/LNormalThe [facility] HospitalComment on above:Performed By: #### BMP, LIVER #### [facility] [address] [place] [address] Dr. Jhony SalasCalcium [Mass/Vol]8.9 mg/dLNormal8.5-10.1[facility] Comment on above:Performed By: #### BMP, LIVER #### [facility] [address] [address] [address] Jhony SalasChloride [Moles/Vol]106 mmol/DImwuok54-724UpfSumma Health Comment on above:Performed By: #### BMP, LIVER #### [facility] [address] [place] [address] Dr. Jhony SalasCO2 [Moles/Vol]27.3 mmol/XLodird00.0-32.0[facility] Comment on above:Performed By: #### BMP, LIVER #### [facility] [address] [place] [address] Dr. Jhony SalasCreatinine [Mass/Vol]0.81 mg/dLNormal0.55-1.02The [facility] HospitalComment on above:Performed By: #### BMP, LIVER #### [facility] [address] [address] [address] Jhony AlcantaraGFR-AF BULGARIAN>60Normal>=60The [facility] HospitalComment on above:Performed By: #### BMP, LIVER #### [facility] [address] [place] [address] Dr. Jhony AlcantaraGFR-NON AF BULGARIAN>60Normal>=60The [facility] HospitalComment on above:Performed By: #### BMP, LIVER #### [facility] [address] [place] [address] Dr. Jhony SalasGlucose [Mass/Vol]97 mg/cQVmvmfi47-810EenSumma Health Comment on above:Performed By: #### BMP, LIVER #### [facility] [address] [address] [address] Jhony SalasPotassium [Moles/Vol]3.9 mmol/LNormal3.5-5.1[facility] Comment on above:Performed By: #### BMP, LIVER #### [facility] [address] [address] [address] Jhony SalasSodium [Moles/Vol]143 mmol/JTyxkvj107-780Xqx [facility] Comment on above:Performed By: #### BMP, LIVER #### [facility] [address] [place] [address] Dr. Jhony SalasUrea nitrogen [Mass/Vol]10.0 mg/dLNormal7.0-18.0Summa HealthComment on above:Performed By: #### BMP, LIVER #### [facility] [address] [place] [address] Dr. Jhony Woodard nitrogen/Creatinine [Mass ratio]12.3 mg/mgNoMercy Memorial HospitalComment on above:Performed By: #### BMP, LIVER #### [facility] [address] [place] [address] Dr. Jhony Tellez [id number] Coag (PPP) [Relative time]0.93 {INR} NormalSumma HealthComment on above:Performed By: #### PT #### [facility] [address] [place] [address] Dr. Jhony Snowden GUIDELINESSEE BELOWFirelands Regional Medical CenterComment on above:Result Comment: DESIRED INR: 2.0 - 3.0 CONDITIONS NOT LISTED BELOW 2.5 - 3.5 FOR PROSTHETIC HEART VALVE REPLACEMENT 2.5 - 3.5 RECURRENT THROMBOSIS Performed By: #### PT #### [facility] [address] [place] [address] Dr. Jhony SalasPT Coag (PPP) [Time]9.9 sNormal9.0-11.6ThKettering Health Miamisburg Comment on above:Performed By: #### PT #### [facility] [address] [place] [address] Dr. Jhony Alvarez ACOG PANEL 2: 30 to 65on 01-05-2023..NormalProMedica Fostoria Community Hospital on above:Result Comment: Performed at: WBPerformed By: #### [id number] #### [facility] [address] [place] [address] Dr. Jhony Petersen Gdln ACOG Ebzofsa69-77QnfofiIzhMercy Memorial HospitalComment on above:Performed By: #### [id number] #### [facility] [address] [place] [address] Dr. Jhony SalasDIAGNOSIS:CommentSamaritan Hospital on above: Result Comment: NEGATIVE FOR INTRAEPITHELIAL LESION OR MALIGNANCY. Performed at: WBPerformed By: #### [id number] #### [facility] Laboratory [address] [place] [address] Dr. Jhony Ji AptimaNegativeNormalNegativeSumma HealthComup health system on above:Result Comment: This nucleic acid amplification test detects fourteen high-risk HPV types (16,18,31,33,35,39,45,51,52,56,58,59,66,68) without differentiation. Performed at: =GPerformed By: #### [id number] #### [facility] Laboratory [address] [place] [address] Dr. Jhony SalasHPBobby Genotype ReflexCommentSamaritan Hospital on above:Result Comment: Criteria not met, HPV Genotype not performed. Performed at: WBPerformed By: #### [id number] #### [facility] Laboratory [address] [place] [address] Dr. Jhony SalasMethodology:CommentSamaritan Hospital on above: Result Comment: This liquid based ThinPrep(R) pap test was screened with the use of an image guided system. Performed at: WBPerformed By: #### [id number] #### [facility] Laboratory [address] [place] [address] Dr. Jhony SalasNote:CommentSamaritan Hospital on above:Result Comment: The Pap smear is a screening test designed to aid in the detection of premalignant and malignant conditions of the uterine cervix. It is not a diagnostic procedure and should not be used as the sole means of detecting cervical cancer. Both false-positive and false-negative reports do occur. . Performed at: WBPerformed By: #### [id number] #### [facility] Laboratory [address] [place] [address] Dr. Jhony SalasPerformed by:CommentFirelands Regional Medical CenterComment on above: Result Comment: Akua Brock, Diamond Blender (ASCP) Performed at: WBPerformed By: #### [id number] #### [facility] Laboratory [address] [place] [address] Dr. Jhony SalasSpecimen adequacy:[facility] on above:Result Comment: Satisfactory for evaluation. Endocervical and/or squamous metaplastic cells (endocervical component) are present. Performed at: WBPerformed By: #### [id number] #### [facility] Laboratory [address] [place] [address] Dr. Jhony SalasCHEMISTRYOrdered By: Maggie Case on 72-13-8790DaY0y (Bld) [Mass fraction]5.2 %Normal<=5.9%[facility] ChemAutoSSCHEMISTRYOrdered By: SYSTEM SYSTEM on 84-33-3532YMB.beta subunit QnmIU/mLNormal1 - 3 mIU/mLDEACONESS HOSP[facility] [place] RemisolT4 [Mass/Vol] 7.9 ug/dLNormal4.6 - 9.1 mcg/dLDEACONESS HOSPITAL [facility] [place] RemisolTSH Qn16.52 m[IU]/LHigh0.34 - 5.60 mcIU/mLDEACONESS [facility]OSPITAL [facility] [place] RemisolCOAGULATIONOrdered By: Maggie Case on 72-80-2403wGMM Coag (PPP) [Time]31.0 lEvdkqv70.1 - 36.5 second(s)[facility] Auto CoagINR Coag (PPP) [Relative time]1.0 {INR}Invalid Interpretation CodeFT Auto CoagPT Coag (PPP) [Time]11.5 sNormal9.4 - 12.5 second(s)[facility] Auto CoagHEMATOLOGYOrdered By: SYSTEM SYSTEM on 21-62-2611Aaqpkuyqw/100 WBC (Bld)0.4 %Normal0.0 - 2.0 %[facility] HemeAutoSS Basophils/Leukocytes Auto (Bld) [Pure # fraction]0.0 E9/LNormal0.0 - 0.2 E9/L [facility] HemeAutoSSEosinophils/100 WBC (Bld)1.9 %Normal0.0 - 8.0 %[facility] HemeAutoSS Eosinophils/Leukocytes Auto (Bld) [Pure # fraction]0.2 E9/LNormal0.0 - 0.5 E9/L [facility] HemeAutoSSLymphocytes/100 WBC (Bld)16.3 %Cyvern94.0 - 50.0 %[facility] HemeAutoSS Lymphocytes/Leukocytes Auto (Bld) [Pure # fraction]2.0 E9/LNormal1.0 - 4.0 E9/L [facility] HemeAutoSSMonocytes/100 WBC (Bld)7.7 %Normal4.0 - 14.0 %[facility] HemeAutoSS Monocytes/Leukocytes Auto (Bld) [Pure # fraction]1.0 E9/LNormal0.2 - 1.0 E9/L [facility] HemeAutoSSNeutrophils/100 WBC (Bld)73.7 %Tcinht08.0 - 75.0 %[facility] HemeAutoSS Neutrophils/Leukocytes Auto (Bld) [Pure # fraction]9.1 E9/LHigh2.0 - 7.5 E9/L [facility] HemeAutoSSHEMATOLOGYOrdered By: Ynes Red on 15-16-4632Fgltkgsqsju distribution width (RBC) [Ratio]14.0 %Bbcddl15.9 - 14.2 %[facility] HemeAutoSS Hematocrit (Bld) [Volume fraction]38.7 %Gcljnj01.0 - 46.0 %[facility] HemeAutoSS Hemoglobin (Bld) [Mass/Vol]12.6 g/hFYjtcwd38.0 - 16.0 gm/dLFTMC HemeAutoSSMCH (RBC) [Entitic mass]30.5 wyPbjqra77.0 - 34.0 pgFTMC HemeAutoSSMCHC (RBC) [Mass/Vol]32.6 g/nJFuaezk27.4 - 36.0 gm/dLFTMC HemeAutoSSMCV (RBC) [Entitic vol] 93.4 uENxvsin22.0 - 100.0 fLDEACONESS H[facility] [place] [facility] HemeAutoSSPlatelet mean volume (Bld) [Entitic vol]8.4 fLNormal6.4 - 10.8 fLDEACONESS HOSPITAL – [place] HemeAutoSSPlatelets (Bld) [#/Vol]266.0 E9/L Fcmlqb164.0 - 500.0 E9/LFNOR[facility] HemeAutoSSRBC (Bld) [#/Vol]4.1 E12/LLow4.3 - 5.9 E12/[facility] HemeAutoSSWBC corrected for nucl RBC Auto (Bld) [#/Vol]12.3 E9/LHigh 4.0 - 11.0 E9/[facility] HemeAutoSSThyroid Stim. Horm.on 94-51-2070TVL Qn83.46 m[IU]/LHigh0.30-5.00[facility] Medical CenterComment on above:Performed By: #### TSH #### [address] [place] [address] Special Effects Artist: Umair Woo MD #### FT4 #### [address] [address] Special Effects Artist: Juno Rea MDThyroxine, Freeon 44-50-6472Jksnakpcc, Free0.62 ng/dLLow0.93-1.70[facility] Medical CenterComment on above:Performed By: #### TSH #### [address] [place] [address] Special Effects Artist: Umair Woo MD #### FT4 #### [address] [address] Special Effects Artist: Juno Rea MDHepatitis B Surface AntigenOrdered By: Justine Nation on 59-69-1069Jizocvrvi B Surface AgNon-ReactiveNONREACTIVESouthern [facility] Medical Center Work Phone: rubella antibody, IgGOrdered By: Justine Nation on 61-58-8173Msuefjy virus IgG Ql (S)42.0IU/mLDetwiler Memorial HospitalFloq Work Phone: comment on above: REFERENCE RANGE: <5.0 NON-REACTIVE (non-immune) 5.0 TO 9.9 EQUIVOCAL >=10.0 REACTIVE (immune) Vital Signs Date TimeVital SignValuePerforming BqfrocvacYxkdazhq05-93-1922 06:58-0500Blood Pressure LocationZohreh Middleton 441-1968Ltwipk-Dlzfq[address] [place], [place] 7905311-13-2024 06:58-0500Body rlkonehfkpk54.24 [degF]Zohreh Middleton 713-8673Tdiytn-Kernj[address] [place], [place] 7905311-13-2024 06:58-0500Diastolic blood drhhkeha65 mm[Hg]Zohreh Middleton [address] [place], [place] 7795011-13-2024 06:58-0500Heart rate81 /minZohreh Middleton 734-2389Wkedly-Vzaml[address] [place], [place] 7905311-13-2024 06:58-2491GmT2% (BldA) [Mass fraction]97 %Zohreh Middleton 449-4435Suavsz-Byskg[address] [place], [place] 7905311-13-2024 06:58-0500Systolic blood thhvbwif033 mm[Hg]Zohrehdennis Middleton [phone]-Zfcma[address] [place], [place] 7905303-13-2024 07:17-0400Blood Pressure LocationZohreh Middleton [phone]-Rgboy[address] [place], [place] 7905303-13-2024 07:17-0400Body .52 [degF]Zohreh Middleton 121-3794Fxjsgo-Yepga[address] [place], [place] 7905303-13-2024 07:17-0400Diastolic blood tyqdzuhg19 mm[Hg]Zohrehdennis Middleton [phone]-Yptfr[address] [place], [place] 7905303-13-2024 07:17-0400Heart rate77 /minFrenchclcolbyn Emi [phone]-Ngapx[address] [place], [place] 7905303-13-2024 07:17-6475KtB8% (BldA) [Mass fraction]98 %Zohreh Middleton [address] [place], [place] 7795003-13-2024 07:17-0400Systolic blood cyjectbq363 mm[Hg]Zohreh Middleton [address] [place], [place] 7795012-06-2023 13:48-0500Blood Pressure LocationJagerrin Emi [address] [place], [place] 7795012-06-2023 13:48-0500Body mlbioiohlza89.42 [degF]Zohreh Middleton [address] [place], [place] 7795012-06-2023 13:48-0500Diastolic blood lowbheae44 mm[Hg]Zohreh Middleton [address] [place], [place] 7795012-06-2023 13:48-0500Heart rate98 /Stephanen Emi [address] [place], [place] 7795012-06-2023 13:48-9166XnY9% (BldA) [Mass fraction]98 %Zohreh Middleton [address] [place], [place] 7795012-06-2023 13:48-0500Systolic blood opdpgyfk190 mm[Hg]Zohreh Middleton [address] [place], [place] 7795008-29-2023 14:33-0400Blood Pressure LocationJagerrin Emi [address] [place], [place] 7795008-29-2023 14:33-0400Body lwcmadlknor98.52 [degF]Zohreh Middleton [address] [place], [place] 7795008-29-2023 14:33-0400Diastolic blood avdebtxt67 mm[Hg]Zohreh Middleton [phone]-Jmmpi[address] [place], [place] 7905308-29-2023 14:33-0400Heart rate89 /minJabill Emi 167-7887Vsfcjz-Wdfgs[address] [place], [place] 7905308-29-2023 14:33-9186JcN5% (BldA) [Mass fraction]100 %Zohreh Middleton [phone]-Udjgs[address] [place], [place] 7905308-29-2023 14:33-0400Systolic blood ampmfbxj871 mm[Hg]Zohreh Middleton [address] [place], [place] 7795009-14-2022 14:56-0400Blood Pressure LocationKatlisa Alvarenga [phone]-Hathl[address] [place], [place] 7905309-14-2022 14:56-0400Body vtzmdlkoyrp75.7 [degF]Maggie Navarroell [address] [place], [place] 7795009-14-2022 14:56-0400Diastolic blood mneeaawf70 mm[Hg]Maggie Alvarenga [phone]-Uaqca[address] [place], [place] 7905309-14-2022 14:56-0400Heart rate84 /minKathrcolby Navarroell 451-3864Txflse-Fhnrl[address] [place], [place] 7905309-14-2022 14:56-0737FnP8% (BldA) [Mass fraction]98 %Maggie Alvarenga [phone]-Omttn[address] [place], [place] 7905309-14-2022 14:56-0400Systolic blood gsigzcyt678 mm[Hg]Maggie Alvarenga [phone]-Ehibs[address] [place] [address] Primary Care Encounters Encounter DateEncounter TypeCare ProviderFacilityStart: 33-23-5671myidhcwaonLLJ- C Zohreh Cheyanne MisslerFacility:[place] PCStart: 59-73-9437hqzlmitzqvFjjfler HARWOODFacility:FTMCStart: 10-76-8184yueqsavncfCtnsujd HARWOODFacility:[facility] Start: 07-18-2025 End: 62-19-6647buzqabvtmjRJVQAH A MARIOANNFacility:FT BellevueStart: 04-25-2025 End: 93-86-6853nrsrtxjnghUGI-C Zohreh Cheyanne MisslerFacility:[place] PCStart: 04-25-2025 End: 34-86-5315Hhzxpeb encounter procedureJaclynn Cheyanne Missler [phone]-NpfdyCenterville [facility] Care Start: 04-25-2025 End: 12-02-2707Iqdd adult monitoring check doneJaclcarolina Cheyanne Missler [phone]-WoagjCenterville Primary Care Start: 04-25-2025 End: 58-06-0823vmtdiujlkoXNK-C Zohrehdennis Edwadr MisslerFacility:FTMCStart: 04-25-2025 End: 77-51-9626Kjielra encounter procedureJaclynn Cheyanne Missler [facility] Start: 10-11-2024 End: 69-44-7834emqqujxdqiZpwmgch Cheyanne MisslerFacility:[place] PCStart: 10-11-2024 End: 69-52-9506Vresnqq encounter procedureJaclynn Cheyanne Missler [phone]-IlrjdCenterville Primary [facility] Start: 10-09-2024 End: 17-15-4168kbtwwbsawlHzvaohe Cheyanne MisslerFacility:FTMCStart: 10-09-2024 End: 23-55-3266Uljdhlq encounter procedureJaclynn Cheyanne Missler [facility] Start: 10-06-2024 End: 00-82-4920cpdztkzeyeTXQHJE A LEHMANNFacility:FTMCStart: 10-06-2024 End: 44-44-6184Jdwndca encounter procedureSHELLY A BIANKA [facility] Start: 10-05-2024 End: 18-88-0309xcrzxxbaxnDYSSTO A LEHMANNFacility:FT BellevueStart: 80-64-5777adgfgsrakdMBISIF LEHMANNFacility:FT BellevueStart: 09-01-2024 End: 96-02-8235hszgatrohzNdwturw HARWOODFacility:FTMCStart: 02-09-2024 End: 60-00-9597jhnjfmmzlqWyhmuvp Cheyanne MisslerFacility:[place] PCStart: 02-09-2024 End: 02-11-6699Ffspqqb encounter procedureJaclynn Cheyanne Missler [phone]-FzwupCenterville [facility] Care Start: 02-08-2024 End: 06-33-7869pgfcbavxbuOadfjel Cheyanne MisslerFacility:FTMCStart: 02-08-2024 End: 53-87-7264Gmwrbar encounter procedureJaclynn Cheyanne Missler [facility] Start: 52-96-7298rfzpsmzxhmSotyfjn Cheyanne Missler Facility:[place] PCStart: 11-03-2023 End: 89-95-1367Xwr Drop offJaclynn Cheyanne Missler [facility] Start: 11-03-2023 End: 26-91-2346Igzghlo encounter procedureJaclynn Cheyanne Missler [phone]-GpfgvCenterville Primary Care Start: 07-27-2023 End: 61-59-1356Rkraoxb encounter procedureZohreh Cheyanne Middleton [phone]-QmjxtCenterville Primary Care Start: 67-26-5394Lfelqvmye for preprocedural laboratory examinationCOREY Good Samaritan Hospitaltart: 03-05-2023 End: 66-14-4680rvmeuqithhVGZTG FAZIOFacility:L4Ekaom: 03-03-2023 End: 17-09-7676hreuuzfiutHLOJW FAZIOFacility:T2Inqbq: 03-03-2023 End: 78-66-7507Cnabbcwgk for preprocedural laboratory examinationCOREY [facility] Facility:N3Upvcv: 02-23-2023 End: 00-34-5057vuktiiacbuFVEWU FAZIOFacility:I5Myiyq: 01-12-2023 End: 55-71-1897Pkgsmrc encounter procedureMaggie Alvarenga [facility] Start: 12-30-2022 End: 14-51-2398qqimtlmzsbJJGFI FAZIOFacility:E3Iysnx: 12-25-2022 End: 25-69-4089Uvvxjqb encounter procedureCorey R SUSAN [facility] Start: 11-11-2022 End: 99-59-3177Axsnkjo encounter procedureMaggie Alvarenga [phone]-QytadCenterville Primary Care Start: 08-12-2022 End: 44-32-5208Gyyilpb encounter procedureMaggie Alvarenga [phone]-AaczoCenterville Primary Care Start: 08-12-2022 End: 83-44-7815Vdlp adult monitoring check doneMaggie Leonard Alvarenga [phone]-ZlgylCenterville [facility] Care Start: 12-08-2021 End: 09-25-2406dejstmajkbOsahgk aZid HaleFacility:[facility] Hospitaltart: 01-31-2021 End: 16-76-3741Qkqrvsl encounter procedureBREAvita Health [facility] Start: 12-13-2019 End: 97-90-3592Vfmsyxmukt hospital visit by physicianGAHZ Laboratory Procedures DateProcedureProcedure DetailPerforming ClinicianStart: 98-72-1664Rgjs ia hepatitis b surface antigenLinmona tamyca PRINCIPAL BIOSTATISTICIAN - DECK BUILDER Work Phone: Start: 09-79-8655Jzhifrgdkze infectious agent antibody lauren nosLinBrightcoveangeles tamyca PRINCIPAL BIOSTATISTICIAN - DECK BUILDER Work Phone: Dilation and curettageJayocastacolbyelza Emi H/O: hysterectomyS/P partial hysterectomyJaclynelza Emi HysterectomyZohreh Middleton Malignant tumor of thyroid gland (disorder)Maggiecolby Alvarenga ThyroidectomyZohreh Middleton TonsillectomyMaggie Lyle Plan of Treatment DateCare ActivityDetailAuthor End: 60-47-6439Ttmth Antibody, IgGMumps Antibody, IgG Lab Routine Once for 1 Occurrences starting 12/13/2019 until 12/13/2019[facility] Work Phone: comment on above:Once for 1 Occurrences starting 12/13/2019 until 12/13/2019Mumps Antibody, IgGMumps Antibody, IgG Lab Routine 12/13/2019 1:06 PM ESTDetwiler Memorial HospitalFloq Work Phone: End: 44-64-2354Wxwbihv Antibody, IgGRubeola Antibody, IgG Lab Routine Once for 1 Occurrences starting 12/13/2019 until 12/13/2019iCeutica Phone: comment on above:Once for 1 Occurrences starting 12/13/2019 until 12/13/2019Rubeola Antibody, IgGRubeola Antibody, IgG Lab Routine 12/13/2019 1:06 PM Beetailer Phone: End: 71-17-6154Emnbspyow Zoster Antibody, IgGVaricella Zoster Antibody, IgG Lab Routine Once for 1 Occurrences starting 12/13/2019 until 12/13/2019i[employer] Phone: comment on above:Once for 1 Occurrences starting 12/13/2019 until 12/13/2019Varicella Zoster Antibody, IgGVaricella Zoster Antibody, IgG Lab Routine 12/13/2019 1:06 PM Beetailer Phone: Immunizations Immunization DateImmunizationNotesCare VkhnxqwqHfaeusne77-00-9792sutupsmaa virus vaccine, unspecified formulation; Translations: [Fluzone TIV PF ] ROSELIA CARLTON [facility] HospitalComment on above:Reason for Medication: Zjuxynwdxwc24-90-6554dptbbcdbt virus vaccine, unspecified formulationZohreh Middleton [facility] HospitalComment on above:Reason for Medication: Qimequbliow01-91-5640kjpsytbkn virus vaccine, unspecified formulationKatcolby Navarroell [facility] HospitalComment on above:Reason for Medication: Rnevyhmstxv64-48-4490ARRM-YcA-5 mRNA (gazptbkerwz-bjjx-pvdjrjz) vaccineKatSajancolby miDrive [phone]-ByjgtCenterville Primary Apcn60-68-2184 SARS-CoV-2 mRNA (otbddyjiqms-ikjo-nlklqnn) vaccineKatSajancolby miDrive [phone]-LxxdqCenterville Primary Tzfx01-87-8487 influenza virus vaccine, unspecified formulationMaggie Alvarenga [phone]-AjmudCenterville Primary Bway04-14-4969 influenza, unspecified formulationMaggie Alvarenga [phone]-NamfgCent[facility] Care Payers DatePayer CategoryPayerPolicy [id number] Health Insurance [id number] [id number] SPECIALTY BILLING [facility] xxxxxxxxx 2019-Present Indemnityxxxxxxxxx [id number] 2.840.1.045303.3.57[id number] 2.16.840.1.309097.3.57[id number] 2.16.840.1.694152.3.57[id number] 2.16.840.1.812314.3.57[id number] 2.16.840.1.327571.3.57[id number] 2.16.840.1.088582.3.57[id number] 2.16840.1.766810.3.57[id number] 2.16.840.1.945888.3.57[id number] 2.16.840.1.531837.3.57[id number] 2.16.840.1.168273.3.57[id number] 2.16.840.1.859477.3.579.[id number] 2.16.840.1.159721.3.579.[id number] 2.16.840.1.204523.3.57[id number] 2.16.840.1.267314.3.57[id number] 2.16.840.1.767018.3.57[id number] 2.840.1.614971.3.57[id number] 2.16.840.1.349465.3.57[id number] 2.16.840.1.406388.3.57[id number] 2.840.1.173769.3.579.2.57987-91-5966Bgus-tmy56395677306-64-2197Foiqumg [id number] 2.840.1.107465.3.579.2.531 Social History DateTypeDetailFacilityTobacco smoking status NHISUnknown if ever smokediCeutica Phone: sex Assigned At BirthNot on [facility]iCe[facility]ica Phone: start: 08-12-2022 End: 69-30-2934Fosflrc smoking statusNever smoked tobacco (finding)[facility] Primary CareComment on above:Boyfriend smokes in homeTobacco smoking statusNeverCenterville Primary CareComment on above: Boyfriend smokes in homeSex Assigned At BirthFeMer[facility] Health St[facility] Sexual OrientationCenterville Primary Care Start: 23-01-3004TfpPkymyl (finding)[facility] Functional Status EikfOfeulfceemYfkyxbMhisdogn55-58-6180Yhcjcvwmda StatusN/[facility] Bzws92-05-4654Yqdsuizbic StatusN/[facility] Primary Dhof30-01-4639Mesnuwijdm StatusN/[facility] Primary Cmlu59-32-9022Cxcequwrnj StatusN/[facility] Care 74-79-0049Boneuplecq StatusN/[facility] Clinical Notes 08-12-2022 to 07-18-2025 Note Date & IageKbviSqscipod98-73-9491 NotePatient Education Infectious Disease Viral Illness, Adult Viruses are tiny germs that can get into a person's body and cause illness. There are many different types of viruses. And they cause many types of illness. Viral illnesses can range from mild to severe. They can affect various parts of the body. Short-term conditions that are caused by a virus include colds and flu (influenza) and stomach viruses. Long-term conditions that are caused by a virus include herpes, shingles, and human immunodeficiency virus (HIV) infection. A few viruses have been linked to certain cancers. What are the causes? Many types of viruses can cause illness. Viruses get into cells in your body, multiply, and cause the infected cells to work differently or . When these cells , they release more of the virus. When this happens, you get symptoms of the illness and the virus spreads to other cells. If the virus takes over how the cell works, it can cause the cell to divide and grow out of control. This happens when a virus causes cancer. Different viruses get into the body in different ways. You can get a virus by: ??? Swallowing food or water that has come in contact with the virus. ??? Breathing in droplets that have been coughed or sneezed into the air by an infected person. ??? Touching a surface that has the virus on it and then touching your eyes, nose, or mouth. ??? Being bitten by an insect or animal that carries the virus. ??? Having sexual contact with a person who is infected with the virus. ??? Being exposed to blood or fluids that contain the virus, either through an open cut or during atransfusion. If a virus enters your body, your body's disease-fighting system (immune system) will try to fight the virus. You may be at higher risk for a viral illness if your immune system is weak. What are the signs or symptoms? Symptoms depend on the type of virus and the location of the cells that it gets into. Symptoms can include: ??? For cold and flu viruses: ? Fever. ? Headache. ? Sore throat. ? Muscle aches. ? Stuffy nose (nasal congestion). ? Cough. ??? For stomach (gastrointestinal) viruses: ? Fever. ? Pain in the abdomen. ? Nausea or vomiting. ? Diarrhea. ??? For liver viruses (hepatitis): ? Loss of appetite. ? Feeling tired. ? Skin or the white parts of your eyes turning yellow (jaundice). ??? For brain and spinal cord viruses: ? Fever. ? Headache. ? Stiff neck. ? Nausea and vomiting. ? Confusion or being sleepy. ??? For skin viruses: ? Warts. ? Itching. ? Rash. ??? For sexually transmitted viruses: ? Discharge. ? Swelling. ? Redness. ? Rash. How is this diagnosed? This condition may be diagnosed based on one or more of these: ??? Your symptoms and medical history. ??? A physical exam. ??? Tests, such as: ? Blood tests. ? Tests on a sample of mucus from your lungs (sputum sample). ? Tests on a poop (stool) sample. ? Tests on a swab of body fluids or a skin sore (lesion). How is this treated? Viruses can be hard to treat because they live within cells. Antibiotics do not treat viruses because these medicines do not get inside cells. Treatment for a viral illness may include: ??? Resting and drinking a lot of fluids. ??? Medicines to treat symptoms. These can include zobr-ykw-iiglrya medicine for pain and fever, medicines for cough or congestion, and medicines for diarrhea. ??? Antiviral medicines. These medicines are available only for certain types of viruses. Some viral illnesses can be prevented with vaccinations. A common example is the flu shot. Follow these instructions at home: Medicines ??? Take vqea-ekq-tzzucqi and prescription medicines only as told by your health care provider. ??? If you were prescribed an antiviral medicine, take it as told by your provider. Do not stop taking the antiviral even if you start to feel better. ??? Know when antibiotics are needed and when they are not needed. Antibiotics do not treat viruses. You may get an antibiotic if your provider thinks that you may have, or are at risk for, a bacterial infection and you have a viral infection. ? Do not ask for an antibiotic prescription if you have been diagnosed with a viral illness. Antibiotics will not make your illness go away faster. ? Taking antibiotics when they are not needed can lead to antibiotic resistance. When this develops, the medicine no longer works against the bacteria that it normally fights. General instructions ??? Drink enough fluids to keep your pee (urine) pale yellow. ??? Rest as much as possible. ??? Return to your normal activities as told by your provider. Ask your provider what activities are safe for you. How is this prevented? To lower your risk of getting another viral illness: ??? Wash your hands often with soap and water for at least 20 seconds. If soap and water are not available, use hand rn gyn. ??? Avoid t (more content not included)...[facility]05-26-2025 Hospital Discharge instructions Patient Education 04/23/2025 17:38:10 Obesity, Adult Obesity, Adult Obesity is the condition of having too much total body fat. Being overweight or obese means that your weight is greater than what is considered healthy for your body size. Obesity is determined by a measurement called BMI (body mass index). BMI is an estimate of body fat and is calculated from height and weight. For adults, a BMI of 30 or higher is considered obese. Obesity can lead to other health concerns and major illnesses, including: Stroke. Coronary artery disease (CAD). Type 2 diabetes. Some types of cancer, including cancers of the colon, breast, uterus, and gallbladder. High blood pressure (hypertension). High cholesterol. Gallbladder stones. Obesity can also contribute to: Osteoarthritis. Sleep apnea. Infertility problems. What are the causes? Common causes of this condition include: Eating daily meals that are high in calories, sugar, and fat. Drinking high amounts of sugar-sweetened beverages, such as soft drinks. Being born with genes that may make you more likely to become obese. Having a medical condition that causes obesity, including: ?Hypothyroidism. ?Polycystic ovarian syndrome (PCOS). ?Binge-eating disorder. ?Alize syndrome. Taking certain medicines, such as steroids, antidepressants, and seizure medicines. Not being physically active (sedentary lifestyle). Not getting enough sleep. What increases the risk? The following factors may make you more likely to develop this condition: Having a family history of obesity. Living in an area with limited access to: ?[place], recreation centers, or sidewalks. ?Healthy food choices, such as grocery stores and [employer] markets. What are the signs or symptoms? The main sign of this condition is having too much body fat. How is this diagnosed? This condition is diagnosed based on: Your BMI. If you are an adult with a BMI of 30 or higher, you are considered obese. Your waist circumference. This measures the distance around your waistline. Your skinfold thickness. Your health care provider may gently pinch a fold of your skin and measureit. You may have other tests to check for underlying conditions. How is this treated? Treatment for this condition often includes changing your lifestyle. Treatment may include some or all of the following: Dietary changes. This may include developing a healthy meal plan. Regular physical activity. This may include activity that causes your heart to beat faster (aerobicexercise) and strength training. Work with your health care provider to design an exercise program that works for you. Medicine to help you lose weight if you are unable to lose one pound a week after six weeks of healthy eating and more physical activity. Treating conditions that cause the obesity (underlying conditions). Surgery. Surgical options may include gastric banding and gastric bypass. Surgery may be done if: ?Other treatments have not helped to improve your condition. ?You have a BMI of 40 or higher. ?You have life-threatening health problems related to obesity. Follow these instructions at home: Eating and drinking Follow recommendations from your health care provider about what you eat and drink. Your health care provider may advise you to: ?Limit fast food, sweets, and processed snack foods. ?Choose low-fat options, such as low-fat milk instead of whole milk. ?Eat five or more servings of fruits or vegetables every day. ?Choose healthy foods when you eat out. ?Keep low-fat snacks available. ?Limit sugary drinks, such as soda, fruit juice, sweetened iced tea, and flavored milk. Drink enough water to keep your urine pale yellow. Do not follow a fad diet. Fad diets can be unhealthy and even dangerous. Other healthful choices include: ?Eat at home more often. This gives you more control over what you eat. ?Learn to read food labels. This will help you understand how much food is considered one serving. ?Learn what a healthy serving size is. Physical activity Exercise regularly, as told by your health care provider. ?Most adults should get up to 150 minutes of moderate-intensity exercise every week. ?Ask your health care provider what types of exercise are safe for you and how often you should exercise. Warm up and stretch before being active. Cool down and stretch after being active. Rest between periods of activity. Lifestyle Work with your health care provider and a dietitian to set a weight-loss goal that is healthy and reasonable for you. Limit your screen time. Find ways to reward yourself that do not involve food. Do not drink alcohol if: ?Your health care provider tells you not to drink. ?You are , may be , or are planning to become . If you drink alcohol: ?Limit how much you have to: ?0 1 drink a day for women. ?0 2 drinks a day for men. ?Know how much alcohol is in your drink. In the [place] one drink equals one 12 oz bottle of beer (355 mL), one 5 oz glass of wine (148 mL), or one 1 oz glass of hard liquor (44 mL). General instructions Keep a weight-loss journal to keep track of the food you eat and how much exercise you get. Take duoy-ypz-ninqalw and prescription medicines only as told by your health care provider. Take vitamins and supplements only as told by your health care provider. Consider joining a support group. Your health care provider may be able to recommend a support group. Pay attention to your mental health as obesity can lead to depression or self esteem issues. Keep all follow-up visits. This is important. Contact a health care provider if: You are unable to meet your weight-loss goal after six weeks of dietary and lifestyle changes. You have trouble breathing. Summary Obesity is the condition of having too much total body fat. Being overweight or obese means that your weight is greater than what is considered healthy for your body size. Work with your health care provider and a dietitian to set a weight-loss goal that is healthy and reasonable for you. Exercise regularly, as told by your health care provider. Ask your health care provider what types of exercise are safe for you and how often you should exercise. This information is not intended to replace advice given to you by your health care provider. Make sure you discuss any questions you have with your health care provider. Document Revised: 06/23/2022 Document Reviewed: 06/23/2022 [employer] Patient Education 2023 [facility] [place]. 04/23/2025 17:38:09 Hypothyroidism Hypothyroidism Hypothyroidism is when the thyroid gland does not make enough of certain hormones. This is called an underactive thyroid. The thyroid gland is a small gland located in the lower front part of the neck, just in front of the windpipe (trachea). This gland makes hormones that help control how the bodyuses food for energy (metabolism) as well as how the heart and brain function. These hormones also play a role in keeping your bones strong. When the thyroid is underactive, it produces too little ofthe hormones thyroxine (T4) and triiodothyronine (T3). What are the causes? This condition may be caused by: Marie's disease. This is a disease in which the body's disease-fighting system (immune system) attacks the thyroid gland. This is the most common cause. Viral infections. . Certain medicines. defects. Problems with a gland in the center of the brain (pituitary gland). Lack of enough iodine in the diet. Other causes may include: Past radiation treatments to the head or neck for cancer. Past treatment with radioactive iodine. Past exposure to radiation in the environment. Past surgical removal of part or all of the thyroid. What increases the risk? You are more likely to develop this condition if: You are female. You have a family history of thyroid conditions. You use a medicine called lithium. You take medicines that affect the immune system (immunosuppressants). What are the signs or symptoms? Common symptoms of this condition include: Not being able to tolerate cold. Feeling as though you have no energy (lethargy). Lack of appetite. Constipation. Sadness or depression. Weight gain that is not explained by a change in diet or exercise habits. Menstrual irregularity. Dry skin, coarse hair, or brittle nails. Other symptoms may include: Muscle pain. Slowing of thought processes. Poor memory. How is this diagnosed? This condition may be diagnosed based on: Your symptoms, your medical history, and a physical exam. Blood tests. You may also have imaging tests, such as an ultrasound or MRI. How is this treated? This condition is treated with medicine that replaces the thyroid hormones that your body does not make. After you begin treatment, it may take several weeks for symptoms to go away. Follow these instructions at home: Take lusa-jta-qjdvwzg and prescription medicines only as told by your health care provider. If you start taking any new medicines, tell your health care provider. Keep all follow-up visits as told by your health care provider. This is important. ?As your condition improves, your dosage of thyroid hormone medicine may change. ?You will need to have blood tests regularly so that your health care provider can monitor your condition. Contact a health care provider if: Your symptoms do not get better with treatment. You are taking thyroid hormone replacement medicine and you: ?Sweat a lot. ?Have tremors. ?Feel anxious. ?Lose weight rapidly. ?Cannot tolerate heat. ?Have emotional swings. ?Have diarrhea. ?Feel weak. Get help right away if: You have chest pain. You have an irregular heartbeat. You have a rapid heartbeat. You have difficulty breathing. These symptoms may be an emergency. Get help right away. Call 911. Do not wait to see if the symptoms will go away. Do not drive yourself to the hospital. Summary Hypothyroidism is when the thyroid gland does not make enough of certain hormones (it is underactive). When the thyroid is underactive, it produces too little of the hormones thyroxine (T4) and triiodothyronine (T3). The most common cause is Marie's disease, a disease in which the body's disease-fighting system(immune system) attacks the thyroid gland. The condition can also be caused by viral infections, medicine, , or past radiation treatment to the head or neck. Symptoms may include weight gain, dry skin, constipation, feeling as though you do not have energy,and not being able to tolerate cold. This condition is treated with medicine to replace the thyroid hormones that your body does not make. This information is not intended to replace advice given to you by your health care provider. Make sure you discuss any questions you have with your health care provider. Document Revised: 11/17/2022 Document Reviewed: 11/17/2022 [employer] Patient Education 2023 [facility] [place]. Follow Up Care 10/11/2024 07:15:14 With:Zohreh Lee Address: [address] [place] [address], [address] [place] [phone]- When:Within 6 Month(s) Comments:[facility] 05-26-2025 NotePatient Education Endocrinology Hypothyroidism Hypothyroidism is when the thyroid gland does not make enough of certain hormones. This is called an underactive thyroid. The thyroid gland is a small gland located in the lower front part of the neck, just in front of the windpipe (trachea). This gland makes hormones that help control how the bodyuses food for energy (metabolism) as well as how the heart and brain function. These hormones also play a role in keeping your bones strong. When the thyroid is underactive, it produces too little ofthe hormones thyroxine (T4) and triiodothyronine (T3). What are the causes? This condition may be caused by: ??? Marie's disease. This is a disease in which the body's disease-fighting system (immune system) attacks the thyroid gland. This is the most common cause. ??? Viral infections. ??? . ??? Certain medicines. ??? defects. ??? Problems with a gland in the center of the brain (pituitary gland). ??? Lack of enough iodine in the diet. Other causes may include: ??? Past radiation treatments to the head or neck for cancer. ??? Past treatment with radioactive iodine. ??? Past exposure to radiation in the environment. ??? Past surgical removal of part or all of the thyroid. What increases the risk? You are more likely to develop this condition if: ??? You are female. ??? You have a family history of thyroid conditions. ??? You use a medicine called lithium. ??? You take medicines that affect the immune system (immunosuppressants). What are the signs or symptoms? Common symptoms of this condition include: ??? Not being able to tolerate cold. ??? Feeling as though you have no energy (lethargy). ??? Lack of appetite. ??? Constipation. ??? Sadness or depression. ??? Weight gain that is not explained by a change in diet or exercise habits. ??? Menstrual irregularity. ??? Dry skin, coarse hair, or brittle nails. Other symptoms may include: ??? Muscle pain. ??? Slowing of thought processes. ??? Poor memory. How is this diagnosed? This condition may be diagnosed based on: ??? Your symptoms, your medical history, and a physical exam. ??? Blood tests. You may also have imaging tests, such as an ultrasound or MRI. How is this treated? This condition is treated with medicine that replaces the thyroid hormones that your body does not make. After you begin treatment, it may take several weeks for symptoms to go away. Follow these instructions at home: ??? Take yuyn-oxt-hkumifs and prescription medicines only as told by your health care provider. ??? If you start taking any new medicines, tell your health care provider. ??? Keep all follow-up visits as told by your health care provider. This is important. ? As your condition improves, your dosage of thyroid hormone medicine may change. ? You will need to have blood tests regularly so that your health care provider can monitor your condition. Contact a health care provider if: ??? Your symptoms do not get better with treatment. ??? You are taking thyroid hormone replacement medicine and you: ? Sweat a lot. ? Have tremors. ? Feel anxious. ? Lose weight rapidly. ? Cannot tolerate heat. ? Have emotional swings. ? Have diarrhea. ? Feel weak. Get help right away if: ??? You have chest pain. ??? You have an irregular heartbeat. ??? You have a rapid heartbeat. ??? You have difficulty breathing. These symptoms may be an emergency. Get help right away. Call 911. ??? Do not wait to see if the symptoms will go away. ??? Do not drive yourself to the hospital. Summary ??? Hypothyroidism is when the thyroid gland does not make enough of certain hormones (it is underactive). ??? When the thyroid is underactive, it produces too little of the hormones thyroxine (T4) and triiodothyronine (T3). ??? The most common cause is Marie's disease, a disease in which the body's disease-fighting system (immune system) attacks the thyroid gland. The condition can also be caused by viral infections, medicine, , or past radiation treatment to the head or neck. ??? Symptoms may include weight gain, dry skin, constipation, feeling as though you do not have energy, and not being able to tolerate cold. ??? This condition is treated with medicine to replace the thyroid hormones that your body does notmake. This information is not intended to replace advice given to you by your health care provider. Make sure you discuss any questions you have with your health care provider. Document Revised: 11/17/2022 Document Reviewed: 11/17/2022 [employer] Patient Education ? 2023 [facility] [place]. Gastroenterology Obesity, Adult Obesity is the condition of having too much total body fat. Being overweight or obese means that your weight is greater than what is considered healthy for your body size. Obesity is determined by a measurement called BMI (body mass index). B (more content not included)...[facility]11-07-2024 Note Patient Education ENT Cough, Adult A cough helps to clear your throat and lungs. It may be a sign of an illness or another condition. A short-term (acute) cough may last 2?3 weeks. A long-term (chronic) cough may last 8 or more weeks. Many things can cause a cough. They include: ??? Illnesses such as: ? An infection in your throat or lungs. ? Asthma or other heart or lung problems. ? Gastroesophageal reflux. This is when acid comes back up from your stomach. ??? Breathing in things that bother (irritate) your lungs. ??? Allergies. ??? Postnasal drip. This is when mucus runs down the back of your throat. ??? Smoking. ??? Some medicines. Follow these instructions at home: Medicines ??? Take buan-uaj-oxfjqlz and prescription medicines only as told by your doctor. ??? Talk with your doctor before you take cough medicine (cough suppressants). Eating and drinking ??? Do not drink alcohol. ??? Do not drink caffeine. ??? Drink enough fluid to keep your pee (urine) pale yellow. Lifestyle ??? Stay away from cigarette smoke. ??? Do not smoke or use any products that contain nicotine or tobacco. If you need help quitting, ask your doctor. ??? Stay away from things that make you cough. These may include perfume, candles, cleaning products, or campfire smoke. General instructions ??? Watch for any changes to your cough. Tell your doctor about them. ??? Always cover your mouth when you cough. ??? If the air is dry in your home, use a cool mist vaporizer or humidifier. ??? If your cough is worse at night, try using extra pillows to raise your head up higher while yousleep. ??? Rest as needed. Contact a doctor if: ??? You have new symptoms. ??? Your symptoms get worse. ??? You cough up pus. ??? You have a fever that does not go away. ??? Your cough does not get better after 2?3 weeks. ??? Cough medicine does not help, and you are not sleeping well. ??? You have pain that gets worse or is not helped with medicine. ??? You are losing weight and do not know why. ??? You have night sweats. Get help right away if: ??? You cough up blood. ??? You have trouble breathing. ??? Your heart is beating very fast. These symptoms may be an emergency. Get help right away. Call 911. ??? Do not wait to see if the symptoms will go away. ??? Do not drive yourself to the hospital. This information is not intended to replace advice given to you by your health care provider. Make sure you discuss any questions you have with your health care provider. Document Revised: 07/16/2023 Document Reviewed: 07/16/2023 [employer] Patient Education ? 2023 [employer] 10-04-2024 Hospital Discharge instructions Patient Education 10/04/2024 06:53:46 Obesity, Adult Obesity, Adult Obesity is the condition of having too much total body fat. Being overweight or obese means that your weight is greater than what is considered healthy for your body size. Obesity is determined by a measurement called BMI (body mass index). BMI is an estimate of body fat and is calculated from height and weight. For adults, a BMI of 30 or higher is considered obese. Obesity can lead to other health concerns and major illnesses, including: Stroke. Coronary artery disease (CAD). Type 2 diabetes. Some types of cancer, including cancers of the colon, breast, uterus, and gallbladder. High blood pressure (hypertension). High cholesterol. Gallbladder stones. Obesity can also contribute to: Osteoarthritis. Sleep apnea. Infertility problems. What are the causes? Common causes of this condition include: Eating daily meals that are high in calories, sugar, and fat. Drinking high amounts of sugar-sweetened beverages, such as soft drinks. Being born with genes that may make you more likely to become obese. Having a medical condition that causes obesity, including: ?Hypothyroidism. ?Polycystic ovarian syndrome (PCOS). ?Binge-eating disorder. ?Viper syndrome. Taking certain medicines, such as steroids, antidepressants, and seizure medicines. Not being physically active (sedentary lifestyle). Not getting enough sleep. What increases the risk? The following factors may make you more likely to develop this condition: Having a family history of obesity. Living in an area with limited access to: ?[place], recreation centers, or sidewalks. ?Healthy food choices, such as grocery stores and farmers' markets. What are the signs or symptoms? The main sign of this condition is having too much body fat. How is this diagnosed? This condition is diagnosed based on: Your BMI. If you are an adult with a BMI of 30 or higher, you are considered obese. Your waist circumference. This measures the distance around your waistline. Your skinfold thickness. Your health care provider may gently pinch a fold of your skin and measureit. You may have other tests to check for underlying conditions. How is this treated? Treatment for this condition often includes changing your lifestyle. Treatment may include some or all of the following: Dietary changes. This may include developing a healthy meal plan. Regular physical activity. This may include activity that causes your heart to beat faster (aerobicexercise) and strength training. Work with your health care provider to design an exercise program that works for you. Medicine to help you lose weight if you are unable to lose one pound a week after six weeks of healthy eating and more physical activity. Treating conditions that cause the obesity (underlying conditions). Surgery. Surgical options may include gastric banding and gastric bypass. Surgery may be done if: ?Other treatments have not helped to improve your condition. ?You have a BMI of 40 or higher. ?You have life-threatening health problems related to obesity. Follow these instructions at home: Eating and drinking Follow recommendations from your health care provider about what you eat and drink. Your health care provider may advise you to: ?Limit fast food, sweets, and processed snack foods. ?Choose low-fat options, such as low-fat milk instead of whole milk. ?Eat five or more servings of fruits or vegetables every day. ?Choose healthy foods when you eat out. ?Keep low-fat snacks available. ?Limit sugary drinks, such as soda, fruit juice, sweetened iced tea, and flavored milk. Drink enough water to keep your urine pale yellow. Do not follow a fad diet. Fad diets can be unhealthy and even dangerous. Other healthful choices include: ?Eat at home more often. This gives you more control over what you eat. ?Learn to read food labels. This will help you understand how much food is considered one serving. ?Learn what a healthy serving size is. Physical activity Exercise regularly, as told by your health care provider. ?Most adults should get up to 150 minutes of moderate-intensity exercise every week. ?Ask your health care provider what types of exercise are safe for you and how often you should exercise. Warm up and stretch before being active. Cool down and stretch after being active. Rest between periods of activity. Lifestyle Work with your health care provider and a dietitian to set a weight-loss goal that is healthy and reasonable for you. Limit your screen time. Find ways to reward yourself that do not involve food. Do not drink alcohol if: ?Your health care provider tells you not to drink. ?You are , may be , or are planning to become . If you drink alcohol: ?Limit how much you have to: ?0 1 drink a day for women. ?0 2 drinks a day for men. ?Know how much alcohol is in your drink. In the [place] one drink equals one 12 oz bottle of beer (355 mL), one 5 oz glass of wine (148 mL), or one 1 oz glass of hard liquor (44 mL). General instructions Keep a weight-loss journal to keep track of the food you eat and how much exercise you get. Take htoq-mee-cjcoola and prescription medicines only as told by your health care provider. Take vitamins and supplements only as told by your health care provider. Consider joining a support group. Your health care provider may be able to recommend a support group. Pay attention to your mental health as obesity can lead to depression or self esteem issues. Keep all follow-up visits. This is important. Contact a health care provider if: You are unable to meet your weight-loss goal after six weeks of dietary and lifestyle changes. You have trouble breathing. Summary Obesity is the condition of having too much total body fat. Being overweight or obese means that your weight is greater than what is considered healthy for your body size. Work with your health care provider and a dietitian to set a weight-loss goal that is healthy and reasonable for you. Exercise regularly, as told by your health care provider. Ask your health care provider what types of exercise are safe for you and how often you should exercise. This information is not intended to replace advice given to you by your health care provider. Make sure you discuss any questions you have with your health care provider. Document Revised: 06/23/2022 Document Reviewed: 06/23/2022 [employer] Patient Education 2023 [facility] [place]. 10/04/2024 06:53:45 Hypothyroidism Hypothyroidism Hypothyroidism is when the thyroid gland does not make enough of certain hormones. This is called an underactive thyroid. The thyroid gland is a small gland located in the lower front part of the neck, just in front of the windpipe (trachea). This gland makes hormones that help control how the bodyuses food for energy (metabolism) as well as how the heart and brain function. These hormones also play a role in keeping your bones strong. When the thyroid is underactive, it produces too little ofthe hormones thyroxine (T4) and triiodothyronine (T3). What are the causes? This condition may be caused by: Marie's disease. This is a disease in which the body's disease-fighting system (immune system) attacks the thyroid gland. This is the most common cause. Viral infections. . Certain medicines. defects. Problems with a gland in the center of the brain (pituitary gland). Lack of enough iodine in the diet. Other causes may include: Past radiation treatments to the head or neck for cancer. Past treatment with radioactive iodine. Past exposure to radiation in the environment. Past surgical removal of part or all of the thyroid. What increases the risk? You are more likely to develop this condition if: You are female. You have a family history of thyroid conditions. You use a medicine called lithium. You take medicines that affect the immune system (immunosuppressants). What are the signs or symptoms? Common symptoms of this condition include: Not being able to tolerate cold. Feeling as though you have no energy (lethargy). Lack of appetite. Constipation. Sadness or depression. Weight gain that is not explained by a change in diet or exercise habits. Menstrual irregularity. Dry skin, coarse hair, or brittle nails. Other symptoms may include: Muscle pain. Slowing of thought processes. Poor memory. How is this diagnosed? This condition may be diagnosed based on: Your symptoms, your medical history, and a physical exam. Blood tests. You may also have imaging tests, such as an ultrasound or MRI. How is this treated? This condition is treated with medicine that replaces the thyroid hormones that your body does not make. After you begin treatment, it may take several weeks for symptoms to go away. Follow these instructions at home: Take myor-kpx-ytoepmy and prescription medicines only as told by your health care provider. If you start taking any new medicines, tell your health care provider. Keep all follow-up visits as told by your health care provider. This is important. ?As your condition improves, your dosage of thyroid hormone medicine may change. ?You will need to have blood tests regularly so that your health care provider can monitor your condition. Contact a health care provider if: Your symptoms do not get better with treatment. You are taking thyroid hormone replacement medicine and you: ?Sweat a lot. ?Have tremors. ?Feel anxious. ?Lose weight rapidly. ?Cannot tolerate heat. ?Have emotional swings. ?Have diarrhea. ?Feel weak. Get help right away if: You have chest pain. You have an irregular heartbeat. You have a rapid heartbeat. You have difficulty breathing. These symptoms may be an emergency. Get help right away. Call 911. Do not wait to see if the symptoms will go away. Do not drive yourself to the hospital. Summary Hypothyroidism is when the thyroid gland does not make enough of certain hormones (it is underactive). When the thyroid is underactive, it produces too little of the hormones thyroxine (T4) and triiodothyronine (T3). The most common cause is Marie's disease, a disease in which the body's disease-fighting system(immune system) attacks the thyroid gland. The condition can also be caused by viral infections, medicine, , or past radiation treatment to the head or neck. Symptoms may include weight gain, dry skin, constipation, feeling as though you do not have energy,and not being able to tolerate cold. This condition is treated with medicine to replace the thyroid hormones that your body does not make. This information is not intended to replace advice given to you by your health care provider. Make sure you discuss any questions you have with your health care provider. Document Revised: 11/17/2022 Document Reviewed: 11/17/2022 [employer] Patient Education 2023 [facility] [place]. 10/04/2024 06:53:45 BMI for Adults BMI for Adults Body mass index (BMI) is a number found using a person's weight and height. BMI can help tell how much of a person's weight is made up of fat. BMI does not measure body fat directly. It is used instead of tests that directly measure body fat, which can be difficult and expensive. What are BMI measurements used for? BMI is useful to: Find out if your weight puts you at higher risk for medical problems. Help recommend changes, such as in diet and exercise. This can help you reach a healthy weight. BMIscreening can be done again to see if these changes are working. How is BMI calculated? Your height and weight are measured. The BMI is found from those numbers. This can be done with U.S. or metric measurements. Note that charts and online BMI calculators are available to help you findyour BMI quickly and easily without doing these calculations. To calculate your BMI in U.S. measurements: 1.Measure your weight in pounds (lb). 2.Multiply the number of pounds by 703. So, for an adult who weighs 150 lb, multiply that number by 703: 150 x 703, which equals 105,450. 3.Measure your height in inches. Then multiply that number by itself to get a measurement called inches squared. So, for an adult who is 70 inches tall, the inches squared measurement is 70 inches x 70 inches, which equals 4,900 inches squared. 4.Divide the total from step 2 (number of lb x 703) by the total from step 3 (inches squared): 105,450 4,900 = 21.5. This is your BMI. To calculate your BMI in metric measurements: 1.Measure your weight in kilograms (kg). For this example, the weight is 70 kg. 2.Measure your height in meters (m). Then multiply that number by itself to get a measurement called meters squared. So, for an adult who is 1.75 m tall, the meters squared measurement is 1.75 m x 1.75 m, which equals 3.1 meters squared. 3.Divide the number of kilograms (your weight) by the meters squared number. In this example: 70 3.1 = 22.6. This is your BMI. What do the results mean? BMI charts are used to see if you are underweight, normal weight, overweight, or obese. The following guidelines will be used: Underweight: BMI less than 18.5. Normal weight: BMI between 18.5 and 24.9. Overweight: BMI between 25 and 29.9. Obese: BMI of 30 or above. BMI is a tool and cannot diagnose a condition. Talk with your health care provider about what your BMI means for you. Keep these notes in mind: Weight includes fat and muscle. Someone with a muscular build, such as an athlete, may have a BMI that is higher than 24.9. In cases like these, BMI is not a correct measure of body fat. If you have a BMI of 25 or higher, your provider may need to do more testing to find out if excess body fat is the cause. BMI is measured the same way for males and females. Females usually have more body fat than males of the same height and weight. Where to find more information For more information about BMI, including tools to quickly find your BMI, go to: Centers for Disease Control and Prevention: cdc.gov [employer]: heart.org National Heart, Lung, and Blood [place]: nhlbi.nih.gov This information is not intended to replace advice given to you by your health care provider. Make sure you discuss any questions you have with your health care provider. Document Revised: 08/05/2023 Document Reviewed: 07/29/2023 [employer] Patient Education 2023 [facility] [place]. Follow Up Care 02/09/2024 07:31:55 With:Zohreh Lee Address: [facility] [address] [place] [address]- When:Within 6 Month(s) Comments:f/u thyroid [facility] 11-06-2024 NotePatient Education Endocrinology Hypothyroidism Hypothyroidism is when the thyroid gland does not make enough of certain hormones. This is called an underactive thyroid. The thyroid gland is a small gland located in the lower front part of the neck, just in front of the windpipe (trachea). This gland makes hormones that help control how the bodyuses food for energy (metabolism) as well as how the heart and brain function. These hormones also play a role in keeping your bones strong. When the thyroid is underactive, it produces too little ofthe hormones thyroxine (T4) and triiodothyronine (T3). What are the causes? This condition may be caused by: ??? Marie's disease. This is a disease in which the body's disease-fighting system (immune system) attacks the thyroid gland. This is the most common cause. ??? Viral infections. ??? . ??? Certain medicines. ??? defects. ??? Problems with a gland in the center of the brain (pituitary gland). ??? Lack of enough iodine in the diet. Other causes may include: ??? Past radiation treatments to the head or neck for cancer. ??? Past treatment with radioactive iodine. ??? Past exposure to radiation in the environment. ??? Past surgical removal of part or all of the thyroid. What increases the risk? You are more likely to develop this condition if: ??? You are female. ??? You have a family history of thyroid conditions. ??? You use a medicine called lithium. ??? You take medicines that affect the immune system (immunosuppressants). What are the signs or symptoms? Common symptoms of this condition include: ??? Not being able to tolerate cold. ??? Feeling as though you have no energy (lethargy). ??? Lack of appetite. ??? Constipation. ??? Sadness or depression. ??? Weight gain that is not explained by a change in diet or exercise habits. ??? Menstrual irregularity. ??? Dry skin, coarse hair, or brittle nails. Other symptoms may include: ??? Muscle pain. ??? Slowing of thought processes. ??? Poor memory. How is this diagnosed? This condition may be diagnosed based on: ??? Your symptoms, your medical history, and a physical exam. ??? Blood tests. You may also have imaging tests, such as an ultrasound or MRI. How is this treated? This condition is treated with medicine that replaces the thyroid hormones that your body does not make. After you begin treatment, it may take several weeks for symptoms to go away. Follow these instructions at home: ??? Take cxjf-khn-thxcciy and prescription medicines only as told by your health care provider. ??? If you start taking any new medicines, tell your health care provider. ??? Keep all follow-up visits as told by your health care provider. This is important. ? As your condition improves, your dosage of thyroid hormone medicine may change. ? You will need to have blood tests regularly so that your health care provider can monitor your condition. Contact a health care provider if: ??? Your symptoms do not get better with treatment. ??? You are taking thyroid hormone replacement medicine and you: ? Sweat a lot. ? Have tremors. ? Feel anxious. ? Lose weight rapidly. ? Cannot tolerate heat. ? Have emotional swings. ? Have diarrhea. ? Feel weak. Get help right away if: ??? You have chest pain. ??? You have an irregular heartbeat. ??? You have a rapid heartbeat. ??? You have difficulty breathing. These symptoms may be an emergency. Get help right away. Call 911. ??? Do not wait to see if the symptoms will go away. ??? Do not drive yourself to the hospital. Summary ??? Hypothyroidism is when the thyroid gland does not make enough of certain hormones (it is underactive). ??? When the thyroid is underactive, it produces too little of the hormones thyroxine (T4) and triiodothyronine (T3). ??? The most common cause is Marie's disease, a disease in which the body's disease-fighting system (immune system) attacks the thyroid gland. The condition can also be caused by viral infections, medicine, , or past radiation treatment to the head or neck. ??? Symptoms may include weight gain, dry skin, constipation, feeling as though you do not have energy, and not being able to tolerate cold. ??? This condition is treated with medicine to replace the thyroid hormones that your body does notmake. This information is not intended to replace advice given to you by your health care provider. Make sure you discuss any questions you have with your health care provider. Document Revised: 11/17/2022 Document Reviewed: 11/17/2022 [employer] Patient Education ? 2023 [facility] [place]. Gastroenterology Obesity, Adult Obesity is the condition of having too much total body fat. Being overweight or obese means that your weight is greater than what is considered healthy for your body size. Obesity is determined by a measurement called BMI (body mass index). B (more content not included)...[facility]02-26-2024 Hospital Discharge instructions Patient Education 01/24/2024 10:28:15 Hypothyroidism Hypothyroidism Hypothyroidism is when the thyroid gland does not make enough of certain hormones. This is called an underactive thyroid. The thyroid gland is a small gland located in the lower front part of the neck, just in front of the windpipe (trachea). This gland makes hormones that help control how the bodyuses food for energy (metabolism) as well as how the heart and brain function. These hormones also play a role in keeping your bones strong. When the thyroid is underactive, it produces too little ofthe hormones thyroxine (T4) and triiodothyronine (T3). What are the causes? This condition may be caused by: Marie's disease. This is a disease in which the body's disease-fighting system (immune system) attacks the thyroid gland. This is the most common cause. Viral infections. . Certain medicines. defects. Problems with a gland in the center of the brain (pituitary gland). Lack of enough iodine in the diet. Other causes may include: Past radiation treatments to the head or neck for cancer. Past treatment with radioactive iodine. Past exposure to radiation in the environment. Past surgical removal of part or all of the thyroid. What increases the risk? You are more likely to develop this condition if: You are female. You have a family history of thyroid conditions. You use a medicine called lithium. You take medicines that affect the immune system (immunosuppressants). What are the signs or symptoms? Common symptoms of this condition include: Not being able to tolerate cold. Feeling as though you have no energy (lethargy). Lack of appetite. Constipation. Sadness or depression. Weight gain that is not explained by a change in diet or exercise habits. Menstrual irregularity. Dry skin, coarse hair, or brittle nails. Other symptoms may include: Muscle pain. Slowing of thought processes. Poor memory. How is this diagnosed? This condition may be diagnosed based on: Your symptoms, your medical history, and a physical exam. Blood tests. You may also have imaging tests, such as an ultrasound or MRI. How is this treated? This condition is treated with medicine that replaces the thyroid hormones that your body does not make. After you begin treatment, it may take several weeks for symptoms to go away. Follow these instructions at home: Take rude-dnq-amldpgp and prescription medicines only as told by your health care provider. If you start taking any new medicines, tell your health care provider. Keep all follow-up visits as told by your health care provider. This is important. ?As your condition improves, your dosage of thyroid hormone medicine may change. ?You will need to have blood tests regularly so that your health care provider can monitor your condition. Contact a health care provider if: Your symptoms do not get better with treatment. You are taking thyroid hormone replacement medicine and you: ?Sweat a lot. ?Have tremors. ?Feel anxious. ?Lose weight rapidly. ?Cannot tolerate heat. ?Have emotional swings. ?Have diarrhea. ?Feel weak. Get help right away if: You have chest pain. You have an irregular heartbeat. You have a rapid heartbeat. You have difficulty breathing. These symptoms may be an emergency. Get help right away. Call 911. Do not wait to see if the symptoms will go away. Do not drive yourself to the hospital. Summary Hypothyroidism is when the thyroid gland does not make enough of certain hormones (it is underactive). When the thyroid is underactive, it produces too little of the hormones thyroxine (T4) and triiodothyronine (T3). The most common cause is Marie's disease, a disease in which the body's disease-fighting system(immune system) attacks the thyroid gland. The condition can also be caused by viral infections, medicine, , or past radiation treatment to the head or neck. Symptoms may include weight gain, dry skin, constipation, feeling as though you do not have energy,and not being able to tolerate cold. This condition is treated with medicine to replace the thyroid hormones that your body does not make. This information is not intended to replace advice given to you by your health care provider. Make sure you discuss any questions you have with your health care provider. Document Revised: 11/17/2022 Document Reviewed: 11/17/2022 [employer] Patient Education 2022 [facility] [place]. 01/24/2024 10:28:13 BMI for Adults BMI for Adults What is BMI? Body mass index (BMI) is a number that is calculated from a person's weight and height. BMI can help estimate how much of a person's weight is composed of fat. BMI does not measure body fat directly.Rather, it is an alternative to procedures that directly measure body fat, which can be difficult and expensive. BMI can help identify people who may be at higher risk for certain medical problems. What are BMI measurements used for? BMI is used as a screening tool to identify possible weight problems. It helps determine whether a person is obese, overweight, a healthy weight, or underweight. BMI is useful for: Identifying a weight problem that may be related to a medical condition or may increase the risk for medical problems. Promoting changes, such as changes in diet and exercise, to help reach a healthy weight. BMI screening can be repeated to see if these changes are working. How is BMI calculated? BMI involves measuring your weight in relation to your height. Both height and weight are measured,and the BMI is calculated from those numbers. This can be done either in [employer] (U[place] or metric measurements. Note that charts and online BMI calculators are available to help you find your BMI quickly and easily without having to do these calculations yourself. To calculate your BMI in [employer] ([place] measurements: 1.Measure your weight in pounds (lb). 2.Multiply the number of pounds by 703. For example, for a person who weighs 180 lb, multiply that number by 703, which equals 126,540. 3.Measure your height in inches. Then multiply that number by itself to get a measurement called inches squared. For example, for a person who is 70 inches tall, the inches squared measurement is 70 inches x 70inches, which equals 4,900 inches squared. 4.Divide the total from step 2 (number of lb x 703) by the total from step 3 (inches squared): 126,540 4,900 = 25.8. This is your BMI. To calculate your BMI in metric measurements: 1.Measure your weight in kilograms (kg). 2.Measure your height in meters (m). Then multiply that number by itself to get a measurement called meters squared. For example, for a person who is 1.75 m tall, the meters squared measurement is 1.75 m x 1.75 m, which is equal to 3.1 meters squared. 3.Divide the number of kilograms (your weight) by the meters squared number. In this example: 70 3.1 = 22.6. This is your BMI. What do the results mean? BMI charts are used to identify whether you are underweight, normal weight, overweight, or obese. The following guidelines will be used: Underweight: BMI less than 18.5. Normal weight: BMI between 18.5 and 24.9. Overweight: BMI between 25 and 29.9. Obese: BMI of 30 or above. Keep these notes in mind: Weight includes both fat and muscle, so someone with a muscular build, such as an athlete, may havea BMI that is higher than 24.9. In cases like these, BMI is not an accurate measure of body fat. To determine if excess body fat is the cause of a BMI of 25 or higher, further assessments may needto be done by a health care provider. BMI is usually interpreted in the same way for men and women. Where to find more information For more information about BMI, including tools to quickly calculate your BMI, go to these websites: Centers for Disease Control and Prevention: www.cdc.gov [employer]: www.heart.org National Heart, Lung, and Blood [place]: www.nhlbi.nih.gov Summary Body mass index (BMI) is a number that is calculated from a person's weight and height. BMI may help estimate how much of a person's weight is composed of fat. BMI can help identify thosewho may be at higher risk for certain medical problems. BMI can be measured using [employer] measurements or metric measurements. BMI charts are used to identify whether you are underweight, normal weight, overweight, or obese. This information is not intended to replace advice given to you by your health care provider. Make sure you discuss any questions you have with your health care provider. Document Revised: 08/07/2020 Document Reviewed: 06/14/2020 [employer] Patient Education 2022 [facility] [place]. Follow Up Care 12/20/2023 16:37:59 With:Zohreh Lee Address: [address] [place] [address], [facility] [place] [id number] When:Within 6 Month(s) Comments:f/u [facility] 12-05-2023 Hospital Discharge instructions Patient Education 11/02/2023 17:06:21 Cough, Adult, Iudw-he-Vejz Cough, Adult A cough helps to clear your throat and lungs. A cough may be a sign of an illness or another medical condition. An acute cough may only last 2 3 weeks, while a chronic cough may last 8 or more weeks. Many things can cause a cough. They include: Germs (viruses or bacteria) that attack the airway. Breathing in things that bother (irritate) your lungs. Allergies. Asthma. Mucus that runs down the back of your throat (postnasal drip). Smoking. Acid backing up from the stomach into the tube that moves food from the mouth to the stomach (gastroesophageal reflux). Some medicines. Lung problems. Other medical conditions, such as heart failure or a blood clot in the lung (pulmonary embolism). Follow these instructions at home: Medicines Take xdaw-ahu-mckvoyq and prescription medicines only as told by your doctor. Talk with your doctor before you take medicines that stop a cough (cough suppressants). Lifestyle Do not smoke, and try not to be around smoke. Do not use any products that contain nicotine or tobacco, such as cigarettes, e-cigarettes, and chewing tobacco. If you need help quitting, ask your doctor. Drink enough fluid to keep your pee (urine) pale yellow. Avoid caffeine. Do not drink alcohol if your doctor tells you not to drink. General instructions Watch for any changes in your cough. Tell your doctor about them. Always cover your mouth when you cough. Stay away from things that make you cough, such as perfume, candles, campfire smoke, or cleaning products. If the air is dry, use a cool mist vaporizer or humidifier in your home. If your cough is worse at night, try using extra pillows to raise your head up higher while you sleep. Rest as needed. Keep all follow-up visits as told by your doctor. This is important. Contact a doctor if: You have new symptoms. You cough up pus. Your cough does not get better after 2 3 weeks, or your cough gets worse. Cough medicine does not help your cough and you are not sleeping well. You have pain that gets worse or pain that is not helped with medicine. You have a fever. You are losing weight and you do not know why. You have night sweats. Get help right away if: You cough up blood. You have trouble breathing. Your heartbeat is very fast. These symptoms may be an emergency. Do not wait to see if the symptoms will go away. Get medical help right away. Call your local emergency services (911 in the [place] Do not drive yourself to the hospital. Summary A cough helps to clear your throat and lungs. Many things can cause a cough. Take mwyi-tmo-zafuwdg and prescription medicines only as told by your doctor. Always cover your mouth when you cough. Contact a doctor if you have new symptoms or you have a cough that does not get better or gets worse. This information is not intended to replace advice given to you by your health care provider. Make sure you discuss any questions you have with your health care provider. Document Revised: 01/03/2021 Document Reviewed: 12/04/2019 [employer] Patient Education 2022 [employer] 11/02/2023 17:06:20 Cough, Adult Cough, Adult Coughing is a reflex that clears your throat and your airways (respiratory system). Coughing helps to heal and protect your lungs. It is normal to cough occasionally, but a cough that happens with other symptoms or lasts a long time may be a sign of a condition that needs treatment. An acute cough may only last 2 3 weeks, while a chronic cough may last 8 or more weeks. Coughing is commonly caused by: Infection of the respiratory systemby viruses or bacteria. Breathing in substances that irritate your lungs. Allergies. Asthma. Mucus that runs down the back of your throat (postnasal drip). Smoking. Acid backing up from the stomach into the esophagus (gastroesophageal reflux). Certain medicines. Chronic lung problems. Other medical conditions such as heart failure or a blood clot in the lung (pulmonary embolism). Follow these instructions at home: Medicines Take zjye-ube-iqcavtp and prescription medicines only as told by your health care provider. Talk with your health care provider before you take a cough suppressant medicine. Lifestyle Avoid cigarette smoke. Do not use any products that contain nicotine or tobacco, such as cigarettes, e-cigarettes, and chewing tobacco. If you need help quitting, ask your health care provider. Drink enough fluid to keep your urine pale yellow. Avoid caffeine. Do not drink alcohol if your health care provider tells you not to drink. General instructions Pay close attention to changes in your cough. Tell your health care provider about them. Always cover your mouth when you cough. Avoid things that make you cough, such as perfume, candles, cleaning products, or campfire or tobacco smoke. If the air is dry, use a cool mist vaporizer or humidifier in your bedroom or your home to help loosen secretions. If your cough is worse at night, try to sleep in a semi-upright position. Rest as needed. Keep all follow-up visits as told by your health care provider. This is important. Contact a health care provider if you: Have new symptoms. Cough up pus. Have a cough that does not get better after 2 3 weeks or gets worse. Cannot control your cough with cough suppressant medicines and you are losing sleep. Have pain that gets worse or pain that is not helped with medicine. Have a fever. Have unexplained weight loss. Have night sweats. Get help right away if: You cough up blood. You have difficulty breathing. Your heartbeat is very fast. These symptoms may represent a serious problem that is an emergency. Do not wait to see if the symptoms will go away. Get medical help right away. Call your local emergency services (911 in the [place] Do not drive yourself to the hospital. Summary Coughing is a reflex that clears your throat and your airways. It is normal to cough occasionally, but a cough that happens with other symptoms or lasts a long time may be a sign of a condition that needs treatment. Take fkdv-noo-glvctgi and prescription medicines only as told by your health care provider. Always cover your mouth when you cough. Contact a health care provider if you have new symptoms or a cough that does not get better after 23 weeks or gets worse. This information is not intended to replace advice given to you by your health care provider. Make sure you discuss any questions you have with your health care provider. Document Revised: 12/04/2019 Document Reviewed: 12/04/2019 [employer] Patient Education 2022 [facility] [place]. Follow Up Care 11/02/2023 08:55:48 With:Zohreh Lee Address: [address] [place] [address] E[place], [facility] [place] [phone] When: only if needed [facility] 08-25-2023 Hospital Discharge instructions Patient Education 07/23/2023 15:39:47 Hypothyroidism Hypothyroidism Hypothyroidism is when the thyroid gland does not make enough of certain hormones. This is called an underactive thyroid. The thyroid gland is a small gland located in the lower front part of the neck, just in front of the windpipe (trachea). This gland makes hormones that help control how the bodyuses food for energy (metabolism) as well as how the heart and brain function. These hormones also play a role in keeping your bones strong. When the thyroid is underactive, it produces too little ofthe hormones thyroxine (T4) and triiodothyronine (T3). What are the causes? This condition may be caused by: Marie's disease. This is a disease in which the body's disease-fighting system (immune system) attacks the thyroid gland. This is the most common cause. Viral infections. . Certain medicines. defects. Problems with a gland in the center of the brain (pituitary gland). Lack of enough iodine in the diet. Other causes may include: Past radiation treatments to the head or neck for cancer. Past treatment with radioactive iodine. Past exposure to radiation in the environment. Past surgical removal of part or all of the thyroid. What increases the risk? You are more likely to develop this condition if: You are female. You have a family history of thyroid conditions. You use a medicine called lithium. You take medicines that affect the immune system (immunosuppressants). What are the signs or symptoms? Common symptoms of this condition include: Not being able to tolerate cold. Feeling as though you have no energy (lethargy). Lack of appetite. Constipation. Sadness or depression. Weight gain that is not explained by a change in diet or exercise habits. Menstrual irregularity. Dry skin, coarse hair, or brittle nails. Other symptoms may include: Muscle pain. Slowing of thought processes. Poor memory. How is this diagnosed? This condition may be diagnosed based on: Your symptoms, your medical history, and a physical exam. Blood tests. You may also have imaging tests, such as an ultrasound or MRI. How is this treated? This condition is treated with medicine that replaces the thyroid hormones that your body does not make. After you begin treatment, it may take several weeks for symptoms to go away. Follow these instructions at home: Take zubb-yod-gsorntg and prescription medicines only as told by your health care provider. If you start taking any new medicines, tell your health care provider. Keep all follow-up visits as told by your health care provider. This is important. ?As your condition improves, your dosage of thyroid hormone medicine may change. ?You will need to have blood tests regularly so that your health care provider can monitor your condition. Contact a health care provider if: Your symptoms do not get better with treatment. You are taking thyroid hormone replacement medicine and you: ?Sweat a lot. ?Have tremors. ?Feel anxious. ?Lose weight rapidly. ?Cannot tolerate heat. ?Have emotional swings. ?Have diarrhea. ?Feel weak. Get help right away if: You have chest pain. You have an irregular heartbeat. You have a rapid heartbeat. You have difficulty breathing. These symptoms may be an emergency. Get help right away. Call 911. Do not wait to see if the symptoms will go away. Do not drive yourself to the hospital. Summary Hypothyroidism is when the thyroid gland does not make enough of certain hormones (it is underactive). When the thyroid is underactive, it produces too little of the hormones thyroxine (T4) and triiodothyronine (T3). The most common cause is Marie's disease, a disease in which the body's disease-fighting system(immune system) attacks the thyroid gland. The condition can also be caused by viral infections, medicine, , or past radiation treatment to the head or neck. Symptoms may include weight gain, dry skin, constipation, feeling as though you do not have energy,and not being able to tolerate cold. This condition is treated with medicine to replace the thyroid hormones that your body does not make. This information is not intended to replace advice given to you by your health care provider. Make sure you discuss any questions you have with your health care provider. Document Revised: 11/17/2022 Document Reviewed: 11/17/2022 [employer] Patient Education 2022 [facility] [place]. 07/23/2023 15:39:46 Exercising to Lose Weight Exercising to Lose Weight Getting regular exercise is important for everyone. It is especially important if you are overweight. Being overweight increases your risk of heart disease, stroke, diabetes, high blood pressure, andseveral types of cancer. Exercising, and reducing the calories you consume, can help you lose weight and improve fitness and health. Exercise can be moderate or vigorous intensity. To lose weight, most people need to do a certain amount of moderate or vigorous-intensity exercise each week. How can exercise affect me? You lose weight when you exercise enough to burn more calories than you eat. Exercise also reduces body fat and builds muscle. The more muscle you have, the more calories you burn. Exercise also: Improves mood. Reduces stress and tension. Improves your overall fitness, flexibility, and endurance. Increases bone strength. Moderate-intensity exercise Moderate-intensity exercise is any activity that gets you moving enough to burn at least three times more energy (calories) than if you were sitting. Examples of moderate exercise include: Walking a mile in 15 minutes. Doing light yard work. Biking at an easy pace. Most people should get at least 150 minutes of moderate-intensity exercise a week to maintain theirbody weight. Vigorous-intensity exercise Vigorous-intensity exercise is any activity that gets you moving enough to burn at least six times more calories than if you were sitting. When you exercise at this intensity, you should be working hard enough that you are not able to carry on a conversation. Examples of vigorous exercise include: Running. Playing a team sport, such as football, basketball, and soccer. Jumping rope. Most people should get at least 75 minutes a week of vigorous exercise to maintain their body weight. What actions can I take to lose weight? The amount of exercise you need to lose weight depends on: Your age. The type of exercise. Any health conditions you have. Your overall physical ability. Talk to your health care provider about how much exercise you need and what types of activities aresafe for you. Nutrition Make changes to your diet as told by your health care provider or diet and child nutrition manager (dietitian). This may include: ?Eating fewer calories. ?Eating more protein. ?Eating less unhealthy fats. ?Eating a diet that includes fresh fruits and vegetables, whole grains, low-fat dairy products, andlean protein. ?Avoiding foods with added fat, salt, and sugar. Drink plenty of water while you exercise to prevent dehydration or heat stroke. Activity Choose an activity that you enjoy and set realistic goals. Your health care provider can help you make an exercise plan that works for you. Exercise at a moderate or vigorous intensity most days of the week. ?The intensity of exercise may vary from person to person. You can tell how intense a workout is for you by paying attention to your breathing and heartbeat. Most people will notice their breathing and heartbeat get faster with more intense exercise. Do resistance training twice each week, such as: ?Push-ups. ?Sit-ups. ?Lifting weights. ?Using resistance bands. Getting short amounts of exercise can be just as helpful as long, structured periods of exercise. If you have trouble finding time to exercise, try doing these things as part of your daily routine: ?Get up, stretch, and walk around every 30 minutes throughout the day. ?Go for a walk during your lunch break. ?Park your car farther away from your destination. ?If you take public transportation, get off one stop early and walk the rest of the way. ?Make phone calls while standing up and walking around. ?Take the stairs instead of elevators or escalators. Wear comfortable clothes and shoes with good support. Do not exercise so much that you hurt yourself, feel dizzy, or get very short of breath. Where to find more information [place] Department of Health and Human Services: www.hhs.gov Centers for Disease Control and Prevention: www.cdc.gov Contact a health care provider: Before starting a new exercise program. If you have questions or concerns about your weight. If you have a medical problem that keeps you from exercising. Get help right away if: You have any of the following while exercising: ?Injury. ?Dizziness. ?Difficulty breathing or shortness of breath that does not go away when you stop exercising. ?Chest pain. ?Rapid heartbeat. These symptoms may represent a serious problem that is an emergency. Do not wait to see if the symptoms will go away. Get medical help right away. Call your local emergency services (911 in the [place] Do not drive yourself to the hospital. Summary Getting regular exercise is especially important if you are overweight. Being overweight increases your risk of heart disease, stroke, diabetes, high blood pressure, and several types of cancer. Losing weight happens when you burn more calories than you eat. Reducing the amount of calories you eat, and getting regular moderate or vigorous exercise each week, helps you lose weight. This information is not intended to replace advice given to you by your health care provider. Make sure you discuss any questions you have with your health care provider. Document Revised: 01/11/2022 Document Reviewed: 01/11/2022 [employer] Patient Education 2022 [facility] [place]. 07/23/2023 15:39:46 BMI for Adults BMI for Adults What is BMI? Body mass index (BMI) is a number that is calculated from a person's weight and height. BMI can help estimate how much of a person's weight is composed of fat. BMI does not measure body fat directly.Rather, it is an alternative to procedures that directly measure body fat, which can be difficult and expensive. BMI can help identify people who may be at higher risk for certain medical problems. What are BMI measurements used for? BMI is used as a screening tool to identify possible weight problems. It helps determine whether a person is obese, overweight, a healthy weight, or underweight. BMI is useful for: Identifying a weight problem that may be related to a medical condition or may increase the risk for medical problems. Promoting changes, such as changes in diet and exercise, to help reach a healthy weight. BMI screening can be repeated to see if these changes are working. How is BMI calculated? BMI involves measuring your weight in relation to your height. Both height and weight are measured,and the BMI is calculated from those numbers. This can be done either in [place] ([place] or metric measurements. Note that charts and online BMI calculators are available to help you find your BMI quickly and easily without having to do these calculations yourself. To calculate your BMI in [place] measurements: 1.Measure your weight in pounds (lb). 2.Multiply the number of pounds by 703. For example, for a person who weighs 180 lb, multiply that number by 703, which equals 126,540. 3.Measure your height in inches. Then multiply that number by itself to get a measurement called inches squared. For example, for a person who is 70 inches tall, the inches squared measurement is 70 inches x 70inches, which equals 4,900 inches squared. 4.Divide the total from step 2 (number of lb x 703) by the total from step 3 (inches squared): 126,540 4,900 = 25.8. This is your BMI. To calculate your BMI in metric measurements: 1.Measure your weight in kilograms (kg). 2.Measure your height in meters (m). Then multiply that number by itself to get a measurement called meters squared. For example, for a person who is 1.75 m tall, the meters squared measurement is 1.75 m x 1.75 m, which is equal to 3.1 meters squared. 3.Divide the number of kilograms (your weight) by the meters squared number. In this example: 70 3.1 = 22.6. This is your BMI. What do the results mean? BMI charts are used to identify whether you are underweight, normal weight, overweight, or obese. The following guidelines will be used: Underweight: BMI less than 18.5. Normal weight: BMI between 18.5 and 24.9. Overweight: BMI between 25 and 29.9. Obese: BMI of 30 or above. Keep these notes in mind: Weight includes both fat and muscle, so someone with a muscular build, such as an athlete, may havea BMI that is higher than 24.9. In cases like these, BMI is not an accurate measure of body fat. To determine if excess body fat is the cause of a BMI of 25 or higher, further assessments may needto be done by a health care provider. BMI is usually interpreted in the same way for men and women. Where to find more information For more information about BMI, including tools to quickly calculate your BMI, go to these websites: Centers for Disease Control and Prevention: www.cdc.gov [employer]: www.heart.org National Heart, Lung, and Blood [place]: www.nhlbi.nih.gov Summary Body mass index (BMI) is a number that is calculated from a person's weight and height. BMI may help estimate how much of a person's weight is composed of fat. BMI can help identify thosewho may be at higher risk for certain medical problems. BMI can be measured using [place] measurements or metric measurements. BMI charts are used to identify whether you are underweight, normal weight, overweight, or obese. This information is not intended to replace advice given to you by your health care provider. Make sure you discuss any questions you have with your health care provider. Document Revised: 08/07/2020 Document Reviewed: 06/14/2020 [employer] Patient Education 2022 [facility] [place]. Follow Up Care 06/16/2023 14:03:09 With:Zohreh Lee Address: [address] [place] [address] [place] [address] When:Within 6 Month(s) Comments:recheck thyroid [facility] 04-07-2023 NoteOPERATIVE NOTE OPERATION DATE: 03/05/2023 PROCEDURE: vNOTES assisted hysterectomy with bilateral salpingectomy. PREOPERATIVE DIAGNOSIS: Abnormal uterine bleeding, dysmenorrhea, dyspareunia. POSTOPERATIVE DIAGNOSIS: Abnormal uterine bleeding, dysmenorrhea, dyspareunia. ANESTHESIA: General. SURGEON: Toni Gamino D.O. NECKTIE STITCHER: SHAHZAD Campos URINE OUTPUT: Yellow and clear. BLOOD LOSS: 50 mL. SPECIMEN: Uterus and tubes. PROCEDURE: Patient was brought back to the operating room where she was given general anesthesia. She was placed in the dorsal lithotomy position, after being prepped and draped in a sterile fashion. A Pina catheter was placed. A weight speculum was placed posterior in the vagina. The cervix was grasped anteriorly and posteriorly with two single tooth tenaculums and placed on traction. A solution of Marcaine, lidocaine and epinephrine and saline was liberally infiltrated into the cervicovaginal junction. The knife was then used to circumscribe the cervicovaginal junction and the posterior cul-de-sac was sharply entered without difficulty. The long weighted duck tail speculum was then placed and the peritoneum was tacked to the vaginal epithelium. We then turned our attention to the uterosacral ligaments which were bilaterally cross clamped, transected and suture ligated, and they were held with hemostats. Attention was then turned to the anterior compartment, where the cervicovaginal junction was similarly divided and the bladder was then sharply and bluntly dissected off the cervix and lower uterine segment, and the anterior cul-de-sac was sharply entered. The epithelium was tacked to the peritoneum. Lateral attachments of the uterus were secured with Pedro clamps and suture ligated. The retractors were then removed and were placed by the path inner ring anteriorly followed by posteriorly. Once the ring was seated, the cap was placed and the laparoscopic ports were placed through this cap and the gas was allowed to insufflate the pelvis. A GynLap was placed posteriorly to facilitate mobilization of the bowel and control bleeding. This was later retrieved. The LigaSure device was used to secure the lateral attachments of the uterus on the left side, including the cardinal ligaments and the uterine vasculature, once the utero-ovarian ligament was reached. We turned attention to the right side, where the LigaSure device was used to fully detach the uterus from the pelvic side wall. The ureters were seen visually; before, during and after the pedicles were created. The ureters were bilaterally in normal locations, peristalsing. On the right side, the fallopian tube was easily divided away from the ovary and removed from the field. The left sided ovary was normal and the tube was left attached to the uterus, and the fimbriated end detached from the ovary. The uterus, both fallopian tubes were removed from the field. The GynLap was also removed from the field. The inner ring and gel ports cap were removed and the vaginal retractors were replaced. Lateral figure of eight sutures were placed bilaterally where bleeding occurred behind the ring and no further sutures were needed. The colpopexy was then carried out, passing a stitch posterior to the vaginal wall, capturing the left uterosacral ligament, going across the posterior peritoneum to the right uterosacral ligament and exiting out the vaginal wall posteriorly. The vaginal cuff was then closed in a single running/locking stitch, using O Monocryl and the uterosacral ligaments were cut. Once the vaginal cuff was fully closed, the uterosacral colpopexy stitch was then tied down tightly, elevating the vaginal cuff to the uterosacral ligaments in a satisfactory manner. The Pina catheter was removed and the patient was awakened and taken recovery in excellent condition. Sponge, lap, needle counts correct x2.[facility] 09-09-2022 Evaluation + Plan note Future Scheduled Tests Laboratory* Thyroid Stimulating Hormone 09/09/22 [facility] 09-14-2022 Hospital Discharge instructions Patient Education 08/12/2022 15:36:35 Exercising to Stay Healthy Exercising to Stay Healthy To become healthy and stay healthy, it is recommended that you do moderate- intensity and vigorous-intensity exercise. You can tell that you are exercising at a moderate intensity if your heart startsbeating faster and you start breathing faster but can still hold a conversation. You can tell that you are exercising at a vigorous intensity if you are breathing much harder and faster and cannot hold a conversation while exercising. Exercising regularly is important. It has many health benefits, such as: Improving overall fitness, flexibility, and endurance. Increasing bone density. Helping with weight control. Decreasing body fat. Increasing muscle strength. Reducing stress and tension. Improving overall health. How often should I exercise? Choose an activity that you enjoy, and set realistic goals. Your health care provider can help you make an activity plan that works for you. Exercise regularly as told by your health care provider. This may include: Doing strength training two times a week, such as: ?Lifting weights. ?Using resistance bands. ?Push-ups. ?Sit-ups. ?Yoga. Doing a certain intensity of exercise for a given amount of time. Choose from these options: ?A total of 150 minutes of moderate-intensity exercise every week. ?A total of 75 minutes of vigorous-intensity exercise every week. ?A mix of moderate-intensity and vigorous-intensity exercise every week. Children, women, people who have not exercised regularly, people who are overweight, and older adults may need to talk with a health care provider about what activities are safe to do. If you have a medical condition, be sure to talk with your health care provider before you start a new exercise program. What are some exercise ideas? Moderate-intensity exercise ideas include: Walking 1 mile (1.6 km) in about 15 minutes. Biking. Hiking. Golfing. Dancing. Water aerobics. Vigorous-intensity exercise ideas include: Walking 4.5 miles (7.2 km) or more in about 1 hour. Jogging or running 5 miles (8 km) in about 1 hour. Biking 10 miles (16.1 km) or more in about 1 hour. Lap swimming. Roller-skating or in-line skating. Cross-country skiing. Vigorous competitive sports, such as football, basketball, and soccer. Jumping rope. Aerobic dancing. What are some everyday activities that can help me to get exercise? Yard work, such as: ?Pushing a credit operations processor. ?Raking and bagging leaves. Washing your car. Pushing a stroller. Shoveling snow. Gardening. Washing windows or floors. How can I be more active in my day-to-day activities? Use stairs instead of an elevator. Take a walk during your lunch break. If you drive, park your car farther away from your work or school. If you take public transportation, get off one stop early and walk the rest of the way. Stand up or walk around during all of your indoor phone calls. Get up, stretch, and walk around every 30 minutes throughout the day. Enjoy exercise with a friend. Support to continue exercising will help you keep a regular routine of activity. What guidelines can I follow while exercising? Before you start a new exercise program, talk with your health care provider. Do not exercise so much that you hurt yourself, feel dizzy, or get very short of breath. Wear comfortable clothes and wear shoes with good support. Drink plenty of water while you exercise to prevent dehydration or heat stroke. Work out until your breathing and your heartbeat get faster. Where to find more information U.[place]. Department of Health and Human Services: www.hhs.gov Centers for Disease Control and Prevention (CDC): www.cdc.gov Summary Exercising regularly is important. It will improve your overall fitness, flexibility, and endurance. Regular exercise also will improve your overall health. It can help you control your weight, reducestress, and improve your bone density. Do not exercise so much that you hurt yourself, feel dizzy, or get very short of breath. Before you start a new exercise program, talk with your health care provider. This information is not intended to replace advice given to you by your health care provider. Make sure you discuss any questions you have with your health care provider. Document Released: 12/18/2011 Document Revised: 10/28/2018 Document Reviewed: 10/06/2018 [employer] Patient Education 2020 [facility] [place]. 08/12/2022 15:36:31 Healthy Eating Healthy Eating Following a healthy eating pattern may help you to achieve and maintain a healthy body weight, reduce the risk of chronic disease, and live a long and productive life. It is important to follow a healthy eating pattern at an appropriate calorie level for your body. Your nutritional needs should be met primarily through food by choosing a variety of nutrient-rich foods. What are tips for following this plan? Reading food labels Read labels and choose the following: ?Reduced or low sodium. ?Juices with 100% fruit juice. ?Foods with low saturated fats and high polyunsaturated and monounsaturated fats. ?Foods with whole grains, such as whole wheat, cracked wheat, brown rice, and wild rice. ?Whole grains that are fortified with folic acid. This is recommended for women who are orwho want to become . Read labels and avoid the following: ?Foods with a lot of added sugars. These include foods that contain brown sugar, corn sweetener, corn syrup, dextrose, fructose, glucose, high-fructose corn syrup, honey, invert sugar, lactose, malt syrup, maltose, molasses, raw sugar, sucrose, trehalose, or turbinado sugar. ?Do not eat more than the following amounts of added sugar per day: 6 teaspoons (25 g) for women. 9 teaspoons (38 g) for men. ?Foods that contain processed or refined starches and grains. ?Refined grain products, such as white flour, degermed cornmeal, white bread, and white rice. Shopping Choose nutrient-rich snacks, such as vegetables, whole fruits, and nuts. Avoid high-calorie and high-sugar snacks, such as potato chips, fruit snacks, and candy. Use oil-based dressings and spreads on foods instead of solid fats such as butter, stick margarine,or cream cheese. Limit pre-made sauces, mixes, and instant products such as flavored rice, instant noodles, and ready-made pasta. Try more plant-protein sources, such as tofu, tempeh, black beans, edamame, lentils, nuts, and seeds. Explore eating plans such as the Mediterranean diet or vegetarian diet. Cooking Use oil to saut or stir-dacosta foods instead of solid fats such as butter, stick margarine, or lard. Try baking, boiling, grilling, or broiling instead of frying. Remove the fatty part of meats before cooking. Steam vegetables in water or broth. Meal planning At meals, imagine dividing your plate into fourths: ?One-half of your plate is fruits and vegetables. ?One-fourth of your plate is whole grains. ?One-fourth of your plate is protein, especially lean meats, poultry, eggs, tofu, beans, or nuts. Include low-fat dairy as part of your daily diet. Lifestyle Choose healthy options in all settings, including home, work, school, restaurants, or stores. Prepare your food safely: ?Wash your hands after handling raw meats. ?Keep food preparation surfaces clean by regularly washing with hot, soapy water. ?Keep raw meats separate from ybzxr-sq-yxm foods, such as fruits and vegetables. ?camp boss, meat, poultry, and eggs to the recommended internal temperature. ?Store foods at safe temperatures. In general: ?Keep cold foods at 40 F (4.4 C) or below. ?Keep hot foods at 140 F (60 C) or above. ?Keep your freezer at 0 F (-17.8 C) or below. ?Foods are no longer safe to eat when they have been between the temperatures of 40 140 F (4.4 60 C) for more than 2 hours. What foods should I eat? Fruits Aim to eat 2 cup-equivalents of fresh, canned (in natural juice), or frozen fruits each day. Examples of 1 cup-equivalent of fruit include 1 small apple, 8 large strawberries, 1 cup canned fruit, cupdried fruit, or 1 cup 100% juice. Vegetables Aim to eat 2 3 cup-equivalents of fresh and frozen vegetables each day, including different varieties and colors. Examples of 1 cup-equivalent of vegetables include 2 medium carrots, 2 cups raw, leafy greens, 1 cup chopped vegetable (raw or cooked), or 1 medium baked potato. Grains Aim to eat 6 ounce-equivalents of whole grains each day. Examples of 1 ounce- equivalent of grains include 1 slice of bread, 1 cup rwdba-zx-dcq cereal, 3 cups popcorn, or cup cooked rice, pasta, or cereal. Meats and other proteins Aim to eat 5 6 ounce-equivalents of protein each day. Examples of 1 ounce- equivalent of protein include 1 egg, 1/2 cup nuts or seeds, or 1 tablespoon (16 g) peanut butter. A cut of meat or fish that is the size of a deck of cards is about 3 4 ounce-equivalents. Of the protein you eat each week, try to have at least 8 ounces come from seafood. This includes salmon, trout, polo, and anchovies. Dairy Aim to eat 3 cup-equivalents of fat-free or low-fat dairy each day. Examples of 1 cup-equivalent ofdairy include 1 cup (240 mL) milk, 8 ounces (250 g) yogurt, 1 ounces (44 g) natural cheese, or 1 cup (240 mL) fortified soy milk. Fats and oils Aim for about 5 teaspoons (21 g) per day. Choose monounsaturated fats, such as canola and olive oils, avocados, peanut butter, and most nuts, or polyunsaturated fats, such as sunflower, corn, and soybean oils, walnuts, pine nuts, sesame seeds, sunflower seeds, and flaxseed. Beverages Aim for six 8-oz glasses of water per day. Limit coffee to three to five 8-oz cups per day. Limit caffeinated beverages that have added calories, such as soda and energy drinks. Limit alcohol intake to no more than 1 drink a day for non women and 2 drinks a day for men. One drink equals 12 oz of beer (355 mL), 5 oz of wine (148 mL), or 1 oz of hard liquor (44 mL). Seasoning and other foods Avoid adding excess amounts of salt to your foods. Try flavoring foods with herbs and spices instead of salt. Avoid adding sugar to foods. Try using oil-based dressings, sauces, and spreads instead of solid fats. This information is based on general [place] nutrition guidelines. For more information, visit choosemyplate.gov. Exact amounts may vary based on your nutrition needs. Summary A healthy eating plan may help you to maintain a healthy weight, reduce the risk of chronic diseases, and stay active throughout your life. Plan your meals. Make sure you eat the right portions of a variety of nutrient- rich foods. Try baking, boiling, grilling, or broiling instead of frying. Choose healthy options in all settings, including home, work, school, restaurants, or stores. This information is not intended to replace advice given to you by your health care provider. Make sure you discuss any questions you have with your health care provider. Document Released: 02/27/2019 Document Revised: 02/27/2019 Document Reviewed: 02/27/2019 [employer] Patient Education 2020 [facility] [place]. 08/12/2022 15:36:31 BMI for Adults BMI for Adults Body mass index (BMI) is a number that is calculated from a person's weight and height. BMI may help to estimate how much of a person's weight is composed of fat. BMI can help identify those who may be at higher risk for certain medical problems. How is BMI used with adults? BMI is used as a screening tool to identify possible weight problems. It is used to check whether aperson is obese, overweight, healthy weight, or underweight. How is BMI calculated? BMI measures your weight and compares it to your height. This can be done either in [place] ([place] or metric measurements. Note that charts are available to help you find your BMI quickly and easily without having to do these calculations yourself. To calculate your BMI in [place] measurements, your health care provider will: 1.Measure your weight in pounds (lb). 2.Multiply the number of pounds by 703. For example, for a person who weighs 180 lb, multiply that number by 703, which equals [phone]. 3.Measure your height in inches (in). Then multiply that number by itself to get a measurement called inches squared. For example, for a person who is 70 in tall, the inches squared measurement is 70 in x 70 in, which equals 4900 inches squared. 4.Divide the total from Step 2 (number of lb x 703) by the total from Step 3 (inches squared): 126,540 4900 = 25.8. This is your BMI. To calculate your BMI in metric measurements, your health care provider will: 1.Measure your weight in kilograms (kg). 2.Measure your height in meters (m). Then multiply that number by itself to get a measurement called meters squared. For example, for a person who is 1.75 m tall, the meters squared measurement is 1.75 m x 1.75 m, which is equal to 3.1 meters squared. 3.Divide the number of kilograms (your weight) by the meters squared number. In this example: 70 3.1 = 22.6. This is your BMI. How is BMI interpreted? To interpret your results, your health care provider will use BMI charts to identify whether you are underweight, normal weight, overweight, or obese. The following guidelines will be used: Underweight: BMI less than 18.5. Normal weight: BMI between 18.5 and 24.9. Overweight: BMI between 25 and 29.9. Obese: BMI of 30 and above. Please note: Weight includes both fat and muscle, so someone with a muscular build, such as an athlete, may havea BMI that is higher than 24.9. In cases like these, BMI is not an accurate measure of body fat. To determine if excess body fat is the cause of a BMI of 25 or higher, further assessments may needto be done by a health care provider. BMI is usually interpreted in the same way for men and women. Why is BMI a useful tool? BMI is useful in two ways: Identifying a weight problem that may be related to a medical condition, or that may increase the risk for medical problems. Promoting lifestyle and diet changes in order to reach a healthy weight. Summary Body mass index (BMI) is a number that is calculated from a person's weight and height. BMI may help to estimate how much of a person's weight is composed of fat. BMI can help identify those who may be at higher risk for certain medical problems. BMI can be measured using Prydeinig measurements or metric measurements. To interpret your results, your health care provider will use BMI charts to identify whether you are underweight, normal weight, overweight, or obese. This information is not intended to replace advice given to you by your health care provider. Make sure you discuss any questions you have with your health care provider. Document Released: 07/27/2005 Document Revised: 10/28/2018 Document Reviewed: 09/28/2018 [employer] Patient Education 2020 [facility] [place]. 08/12/2022 15:36:28 Food Choices for Gastroesophageal Reflux Disease, Adult Food Choices for Gastroesophageal Reflux Disease, Adult When you have gastroesophageal reflux disease (GERD), the foods you eat and your eating habits are very important. Choosing the right foods can help ease the discomfort of GERD. Consider working witha diet and child nutrition manager (dietitian) to help you make healthy food choices. What general guidelines should I follow? Eating plan Choose healthy foods low in fat, such as fruits, vegetables, whole grains, low- fat dairy products, and lean meat, fish, and poultry. Eat frequent, small meals instead of three large meals each day. Eat your meals slowly, in a relaxed setting. Avoid bending over or lying down until 2 3 hours after eating. Limit high-fat foods such as fatty meats or fried foods. Limit your intake of oils, butter, and shortening to less than 8 teaspoons each day. Avoid the following: ?Foods that cause symptoms. These may be different for different people. Keep a food diary to keep track of foods that cause symptoms. ?Alcohol. ?Drinking large amounts of liquid with meals. ?Eating meals during the 2 3 hours before bed. Cook foods using methods other than frying. This may include baking, grilling, or broiling. Lifestyle Maintain a healthy weight. Ask your health care provider what weight is healthy for you. If you need to lose weight, work with your health care provider to do so safely. Exercise for at least 30 minutes on 5 or more days each week, or as told by your health care provider. Avoid wearing clothes that fit tightly around your waist and chest. Do not use any products that contain nicotine or tobacco, such as cigarettes and e-cigarettes. If you need help quitting, ask your health care provider. Sleep with the head of your bed raised. Use a wedge under the mattress or blocks under the bed frame to raise the head of the bed. What foods are not recommended? The items listed may not be a complete list. Talk with your dietitian about what dietary choices are best for you. Grains Pastries or quick breads with added fat. Swedish toast. Vegetables Deep fried vegetables. Swedish fries. Any vegetables prepared with added fat. Any vegetables that cause symptoms. For some people this may include tomatoes and tomato products, chili peppers, onions and garlic, and horseradish. Fruits Any fruits prepared with added fat. Any fruits that cause symptoms. For some people this may include citrus fruits, such as oranges, grapefruit, pineapple, and esteban. Meats and other protein foods High-fat meats, such as fatty beef or pork, hot dogs, ribs, ham, sausage, salami and hua. Fried meat or protein, including fried fish and fried chicken. Nuts and nut butters. Dairy Whole milk and chocolate milk. Sour cream. Cream. Ice cream. Cream cheese. Milk shakes. Beverages Coffee and tea, with or without caffeine. Carbonated beverages. Sodas. Energy drinks. Fruit juice made with acidic fruits (such as orange or grapefruit). Tomato juice. Alcoholic drinks. Fats and oils Butter. Margarine. Shortening. Ghee. Sweets and desserts Chocolate and cocoa. Donuts. Seasoning and other foods Pepper. Peppermint and spearmint. Any condiments, herbs, or seasonings that cause symptoms. For some people, this may include [place], hot sauce, or vinegar- based salad dressings. Summary When you have gastroesophageal reflux disease (GERD), food and lifestyle choices are very importantto help ease the discomfort of GERD. Eat frequent, small meals instead of three large meals each day. Eat your meals slowly, in a relaxed setting. Avoid bending over or lying down until 2 3 hours after eating. Limit high-fat foods such as fatty meat or fried foods. This information is not intended to replace advice given to you by your health care provider. Make sure you discuss any questions you have with your health care provider. Document Released: 11/15/2006 Document Revised: 03/07/2020 Document Reviewed: 11/16/2017 [employer] Patient Education 2020 [facility] [place]. 08/12/2022 15:36:23 Hypothyroidism Hypothyroidism Hypothyroidism is when the thyroid gland does not make enough of certain hormones (it is underactive). The thyroid gland is a small gland located in the lower front part of the neck, just in front ofthe windpipe (trachea). This gland makes hormones that help control how the body uses food for energy (metabolism) as well as how the heart and brain function. These hormones also play a role in keeping your bones strong. When the thyroid is underactive, it produces too little of the hormones thyroxine (T4) and triiodothyronine (T3). What are the causes? This condition may be caused by: Marie's disease. This is a disease in which the body's disease-fighting system (immune system) attacks the thyroid gland. This is the most common cause. Viral infections. . Certain medicines. defects. Past radiation treatments to the head or neck for cancer. Past treatment with radioactive iodine. Past exposure to radiation in the environment. Past surgical removal of part or all of the thyroid. Problems with a gland in the center of the brain (pituitary gland). Lack of enough iodine in the diet. What increases the risk? You are more likely to develop this condition if: You are female. You have a family history of thyroid conditions. You use a medicine called lithium. You take medicines that affect the immune system (immunosuppressants). What are the signs or symptoms? Symptoms of this condition include: Feeling as though you have no energy (lethargy). Not being able to tolerate cold. Weight gain that is not explained by a change in diet or exercise habits. Lack of appetite. Dry skin. Coarse hair. Menstrual irregularity. Slowing of thought processes. Constipation. Sadness or depression. How is this diagnosed? This condition may be diagnosed based on: Your symptoms, your medical history, and a physical exam. Blood tests. You may also have imaging tests, such as an ultrasound or MRI. How is this treated? This condition is treated with medicine that replaces the thyroid hormones that your body does not make. After you begin treatment, it may take several weeks for symptoms to go away. Follow these instructions at home: Take jksx-[id number] and prescription medicines only as told by your health care provider. If you start taking any new medicines, tell your health care provider. Keep all follow-up visits as told by your health care provider. This is important. ?As your condition improves, your dosage of thyroid hormone medicine may change. ?You will need to have blood tests regularly so that your health care provider can monitor your condition. Contact a health care provider if: Your symptoms do not get better with treatment. You are taking thyroid replacement medicine and you: ?Sweat a lot. ?Have tremors. ?Feel anxious. ?Lose weight rapidly. ?Cannot tolerate heat. ?Have emotional swings. ?Have diarrhea. ?Feel weak. Get help right away if you have: Chest pain. An irregular heartbeat. A rapid heartbeat. Difficulty breathing. Summary Hypothyroidism is when the thyroid gland does not make enough of certain hormones (it is underactive). When the thyroid is underactive, it produces too little of the hormones thyroxine (T4) and triiodothyronine (T3). The most common cause is Marie's disease, a disease in which the body's disease-fighting system(immune system) attacks the thyroid gland. The condition can also be caused by viral infections, medicine, , or past radiation treatment to the head or neck. Symptoms may include weight gain, dry skin, constipation, feeling as though you do not have energy,and not being able to tolerate cold. This condition is treated with medicine to replace the thyroid hormones that your body does not make. This information is not intended to replace advice given to you by your health care provider. Make sure you discuss any questions you have with your health care provider. Document Released: 11/15/2006 Document Revised: 10/28/2018 Document Reviewed: 10/26/2018 [employer] Patient Education [employer]. Follow Up Care 08/06/2022 12:15:22 With:Maggie Alvarenga CNP Address: [address] [place] [phone] When:3 months [facility] + Plan note Future Appointments Appointment Date:11/11/2022 03:40:00 PM Scheduled Provider:Maggie Alvarenga CNP Location:[facility] Appointment Type: Open Future Scheduled Tests Laboratory* Glucose Fasting 08/12/22 * Lipid Panel 08/12/22 * Thyroid Stimulating Hormone 08/12/22 [facility] + Plan note Future Appointments Appointment Date:12/31/2022 02:40:00 PM Scheduled Provider:Maggie Alvarenga CNP Location:[facility] Appointment Type:FM Open Future Scheduled Tests Laboratory* [facility] Appointment Date:01/19/2023 08:40:00 AM Scheduled Provider:Tony ROGERS MD Location:[facility] Appointment Type: New 30 Appointment Date:06/28/2023 03:40:00 PM Scheduled Provider:Zohreh Lee Location:[facility] Appointment Type:FM Open Future Scheduled Tests Laboratory* Thyroid Stimulating Hormone 09/09/22 * Thyroid Stimulating Hormone [facility] Appointment Date:01/28/2024 04:00:00 PM Scheduled Provider:Zohreh Lee Location:[facility] Appointment Type:FM Open Future Scheduled Tests Laboratory* TSH With T4fr Reflex 07/27/23 [facility] + Plan note Future Appointments Appointment Date:01/28/2024 04:00:00 PM Scheduled Provider:Zohreh Lee Location:[facility] Appointment Type:FM Open Diagnostic Tests Pending * Throat Culture 11/03/23 Future Scheduled Tests Laboratory* TSH With T4fr Reflex [facility] Appointment Date:02/09/2024 07:20:00 AM Scheduled Provider:Zohreh Lee Location:[facility] Appointment Date:10/11/2024 07:00:00 AM Scheduled Provider:Zohreh Lee Location:[facility] Appointment Type:FM Open Future Scheduled Tests Laboratory* Thyroid Stimulating Hormone 08/11/24 * Free T4 08/11/24 [facility] + Plan note Future Appointments Appointment Date:10/11/2024 07:00:00 AM Scheduled Provider:Zohreh Lee Location:[facility] Appointment Type:FM Open [facility] Evaluation + Plan note Future Appointments Appointment Date:04/25/2025 02:40:00 PM Scheduled Provider:Zohreh Lee Location:[facility] Appointment Type:FM Open Future Scheduled Tests Laboratory* Thyroid Stimulating Hormone 10/11/24 * Free T4 10/11/24 [facility] Evaluation + Plan note Future Appointments Appointment Date:10/23/2025 02:20:00 PM Scheduled Provider:Zohreh Lee Location:[facility] Appointment Type:FM Open Future Scheduled Tests Laboratory* HgbA1c 04/25/25 * C-Peptide 04/25/25 * Insulin Free and Total 04/25/25 * CBC w/ Auto Diff 04/25/25 * Comprehensive Metabolic Panel 04/25/25 * Lipid Panel 04/25/25 * Thyroid Stimulating Hormone 09/25/25 * Free T4 09/25/25 [facility] course Narrative No data available for this section [facility] Discharge instructions No data available for this section [facility] Progress note No data available for this section [facility] Summary Purpose Family History No Family History Records FoundNo Family History Records FoundNo Family History Records Found No data available for this section No data available for this section No data available for this section No data available for this section No data available for this section No data available for this section No data available for this section No Family History Records Found No data available for this section No Family History Records Found No data available for this section No data available for this section No Family History Records FoundNo Family History Records FoundNo Family History Records Found Advance Directives No Advanced Directives Records FoundDocuments on File TypeDate RecordedPatient RepresentativeExplanationAdvance Directives and Living WillPower of Quality Compliance Consultant Additional Source Comments INFORMATION SOURCE (unrecogn ized section and content) DATE CREATED AUTHOR 02/01/2021 [facility] DATE CREATED AUTHOR AUTHOR'S ORGANIZ ATION 03/16/2023 [facility] DATE CREATED AUTHOR AUTHOR'S ORGANIZ ATION 03/24/2023 [facility] DATE CREATED AUTHOR AUTHOR'S ORGANIZ ATION 10/11/2024 [facility] DATE CREATED AUTHOR AUTHOR'S ORGANIZ ATION 12/08/2024 [facility] DATE CREATED AUTHOR AUTHOR'S ORGANIZ ATION 04/27/2025 [facility] DATE CREATED AUTHOR AUTHOR'S ORGANIZ ATION 04/28/2025 [facility] DATE CREATED AUTHOR AUTHOR'S ORGANIZ ATION 09/20/2025 [facility] Care Team (unrecognized sect ion and content) Personnel Name: Maggie Alvarenga CNP Address: [address] [place] [address] Personnel Name: Maggie Alvarenga CNP Address: Address: [address] [place] [address] Personnel Name: Maggie Alvarenga CNP Address: Address: [address] [place] [address] Personnel Name: Maggie Alvarenga CNP Address: Address: [address] [place] [address] Personnel Name: Zohreh Lee Address: Address: [address] [place] [address] Personnel Name: Zohreh Lee Address: Address: [address] [place] [address] Personnel Name: Zohreh Lee Address: Address: [address] [place] [address] Personnel Name: Zohreh Lee Address: Address: [address] [place] [address] Personnel Name: Zohreh Lee Address: Address: [address] [place] [address] Personnel Name: Zohreh Lee Address: Address: [address] [place] [address] Personnel Name: Zohreh Lee Address: Address: [facility] Misael Hwang, [facility] [address] Personnel Name: Zohreh Lee Address: Address: Vi Hwang, [address] Personnel Name: Zohreh Lee Address: Address: [facility] Misael Hwang, [facility] [address] Personnel Name: Zhoreh Lee Address: Address: [facility] Misael Hwang, [facility] [address] Personnel Name: Zohreh Lee Address: [facility] [address] [employer]: Personnel Name: Zohreh Lee Address: [facility] Misael Hwang[address] [employer]: FOR RECORDS PERTAINING TO PATIENTS WHO ARE OR HAVE BEEN ENROLLED IN A CHEMICAL DEPENDENCY/SUBSTANCEABUSE PROGRAM, SOME INFORMATION MAY BE OMITTED. This clinical summary was aggregated from multiple sources. Caution should be exercised in using it in the provision of clinical care. This summary normalizes information from multiple sources, and as a consequence, information in this document may materially change the coding, format and clinical context of patient data. In addition, data may be omitted in some cases. CLINICAL DECISIONS SHOULD BE BASED ON THE PRIMARY CLINICAL RECORDS. [facility] [employer] [facility] provides no warranty or guarantee of the accuracy or completeness of information in this document.
[2025-10-24 20:09] LABS: Age Gdln ACOG Testing Note (.); IGP, Aptima HPV, rfx 16/18,45 Note (.)
== END 2025-10-23 15:40 | disposition home or self-care (01) ==
LOC: LAB 15:39
PROVIDERS: PCP Nurse Practitioner Family; Visit Provider Obstetrics & Gynecology
DX: Z01.419 Encounter for gynecological examination (general) (routine) without abnormal findings (principal)
CPT/HCPCS: 88175